=== PATIENT | female | born 1945 | race Caucasian/White ===

== ENCOUNTER → 2017-02-13 | Outpatient (CLI) | payer MEDICARE | LOC: M LAB 12:22 | PROVIDERS: ATTEND Internal Medicine Cardiovascular Disease | DX: R07.9 Chest pain, unspecified (principal) ==

== ENCOUNTER → 2018-10-30 | Outpatient (CLI) | payer MEDICARE ==
--- NOTE | 2018-11-04 14:02 | REP ---
KUB ABDOMEN AND PELVIS: KUB film of the abdomen and pelvis performed. A sitz marker capsule was ingested 5 days ago and followup radiographs are obtained today. There is a single marker seen in the sigmoid colon. Therefore, colonic transit time is grossly normal. I do not see evidence of significant small bowel or large bowel dilatation. Vascular calcifications are seen in the pelvis. There are degenerative changes of the spine, sacroiliac joints, pubic symphysis and hips. IMPRESSION: Single sitz marker present in the sigmoid colon 5 days after ingestion of the sitz marker capsule. Therefore, colonic transit time is grossly normal. Electronically Signed by Marco Lugo MD 11/05/2018 04:47 P
== END ==
LOC: M RAD 12:39
PROVIDERS: ATTEND Internal Medicine Gastroenterology
DX: K57.30 Diverticulosis of large intestine without perforation or abscess without bleeding (principal)

== ENCOUNTER → 2018-11-04 | Outpatient (REF) | payer MEDICARE ==
[2018-11-04 19:06] LABS: CLOSTRIDIUM DIFFICILE PCR NEGATIVE (NEGATIVE)
== END ==
LOC: M LAB REF 15:23
PROVIDERS: ATTEND Internal Medicine Gastroenterology
DX: K57.30 Diverticulosis of large intestine without perforation or abscess without bleeding (principal)

== ENCOUNTER → 2018-11-19 | Outpatient (CLI) | payer MEDICARE ==
[~2018-11-19] MED LIST: AMLO5TAB6 PO; ATOR1TAB21 PO; BAYE325T13 PO; CARV12.5 PO; DULO1CAP6 PO; GABA600T4 PO; JANU100T PO; METF850T4 PO; OMEG1CAP4 PO; OXYC1TAB23 PO; PANT40TA3 PO; PROAAER10 INH; TIZA4TAB4 PO
[2018-11-19 12:36] LABS: HEMOGLOBIN A1c 6.6 %
[2018-11-19 12:53] LABS: ALBUMIN 3.4 GM/DL (3.2-5.2); ALT/SGPT 15 U/L (12-78); BILIRUBIN,TOTAL 0.3 MG/DL (0.2-1.0); BLOOD UREA NITROGEN 16 MG/DL (7-18); CALCIUM LEVEL 8.9 MG/DL (8.8-10.2); CARBON DIOXIDE LEVEL 27 MEQ/L (21-32); CHLORIDE LEVEL 103 MEQ/L (98-107); CHOLESTEROL LEVEL 129 MG/DL (<200); CHOLESTEROL RISK RATIO 2.047 (<5); GLOMERULAR FILTRATION RATE > 60.0 (>39); GLUCOSE, FASTING 113 MG/DL (70-100); HDL CHOLESTEROL 63 MG/DL (>40); LDL CHOLESTEROL 41 MG/DL (<100); NON-HDL-C 66 MG/DL; POTASSIUM SERUM 5.2 MEQ/L (3.5-5.1); SODIUM LEVEL 140 MEQ/L (136-145); TOTAL PROTEIN 7.1 GM/DL (6.4-8.2); TRIGLYCERIDES LEVEL 125 MG/DL (<150)
== END ==
LOC: M LAB 11:34
PROVIDERS: ATTEND Internal Medicine
DX: E78.2 Mixed hyperlipidemia (principal); I10 Essential (primary) hypertension; E11.9 Type 2 diabetes mellitus without complications

== ENCOUNTER 2018-12-11 09:30 | Day surgery (SDC) | payer MEDICARE ==
[~2018-12-11] VITALS: Ht 149.9 cm; Wt 84.4 kg
[~2018-12-11 09:30] MED LIST changes: +NS 1,000 ML IV ONE
[2018-12-11] MEDS ORDERED: PROPOFOL 200 MG/20 ML VIAL As Ordered ONE ×2 (10:25→10:48)
[2018-12-11] MEDS ORDERED: LIDOCAINE 2% INJ 100 MG/5 ML SDV (FOR ANES.) As Ordered ONE (10:25)
--- NOTE | 2018-12-11 11:23 | ROOR ---
Patient Name: Zara Mtathews Procedure Date: 12/11/2018 10:38 AM Date of : 1945 Age: 73 Room: [facility] Gender: Female Note Status: Finalized Procedure: Colonoscopy Indications: Change in bowel habits, Diarrhea, Fecal incontinence Providers: López MATTHEWS MD Referring MD: MADELIN GAMA MD Requesting Provider: Medicines: Monitored Anesthesia Care Complications: No immediate complications. Procedure: Pre-Anesthesia Assessment: - The heart rate, respiratory rate, oxygen saturations, blood pressure, adequacy of pulmonary ventilation, and response to care were monitored throughout the procedure. The Colonoscope was introduced through the anus and advanced to the terminal ileum, with identification of the appendiceal orifice and IC valve. The colonoscopy was technically difficult and complex due to multiple diverticula in the colon. Successful completion of the procedure was aided by withdrawing the scope and replacing with the 'babyscope'. The patient tolerated the procedure well. Findings: The perianal and digital rectal examinations were normal. A benign-appearing, intrinsic severe stenosis measuring 10 cm (in length) was found in the recto-sigmoid colon, in the mid sigmoid colon and in the distal sigmoid colon and was traversed. Biopsies were taken with a cold forceps for histology. Multiple diverticula were found in the sigmoid colon. There was narrowing of the colon in association with the diverticular opening. Three sessile polyps were found in the ascending colon. The polyps were 5 to 8 mm in size. These polyps were removed with a cold snare. Resection and retrieval were complete. Internal hemorrhoids were found during retroflexion. The hemorrhoids were moderate. Impression: - Moderate to severe benign appearing segmental stenosis/lumenal narrowing in the recto-sigmoid colon, in the mid sigmoid colon and in the distal sigmoid colon. Likely related to myomatous hypertrophy/chronic diverticulitis. Biopsied. - Three 5 to 8 mm polyps in the ascending colon, removed with a cold snare. Resected and retrieved. - Internal hemorrhoids. Recommendation: - Miralax 17 gm daily in 8 oz water. - Use fiber, for example Citrucel, Fibercon, Konsyl or Metamucil. - Repeat colonoscopy in 3 - 5 years for surveillance. - Telephone endoscopist for pathology results in 2 weeks. - Surgical resection may be considered depending on results of a trial on fiber supplement PLUS miralax. López Matthews MD López MATTHEWS MD 12/11/2018 11:22:48 AM Electronically signed by López MATTHEWS MD Number of Addenda: 0 Note Initiated On: 12/11/2018 10:38 AM Estimated Blood Loss: Estimated blood loss: none.
[2018-12-11 11:40] VITALS: BP 144/76
== END 2018-12-11 11:57 | disposition home or self-care (01) ==
LOC: M OPP 09:30
PROVIDERS: ATTEND Internal Medicine Gastroenterology
DX: K56.699 Other intestinal obstruction unspecified as to partial versus complete obstruction (principal); K64.8 Other hemorrhoids; D12.2 Benign neoplasm of ascending colon; K57.30 Diverticulosis of large intestine without perforation or abscess without bleeding; R19.4 Change in bowel habit; R19.7 Diarrhea, unspecified; R15.9 Full incontinence of feces; M79.7 Fibromyalgia; Z79.82 Long term (current) use of aspirin; Z79.84 Long term (current) use of oral hypoglycemic drugs; Z79.891 Long term (current) use of opiate analgesic; Z79.899 Other long term (current) drug therapy; Z85.43 Personal history of malignant neoplasm of ovary; Z92.3 Personal history of irradiation; Z86.79 Personal history of other diseases of the circulatory system; Z95.5 Presence of coronary angioplasty implant and graft; Z86.73 Personal history of transient ischemic attack (TIA), and cerebral infarction without residual deficits

== ENCOUNTER → 2019-02-12 | Outpatient (CLI) | payer MEDICARE ==
[~2019-02-12] MED LIST changes: +LIQUID POLIBAR PLUS 105% w/v 1900ML BTL As Ordered ONE; -NS 1,000 ML IV ONE
--- NOTE | 2019-02-12 19:09 | REP ---
Examination Requested: Barium and Air contrast Reason For Exam: Obstruction, diverticulosis The procedure was performed by ANA MARIA Persaud, under the direct supervision of Dr. Lugo. The images were reviewed with Dr. Lugo. The field nurse film shows no organomegaly, or pathological masses. The intestinal gas pattern is unremarkable. Liquid barium and air were instilled into the colon and retrograde flow of the barium air mixture. The colon is normal in position and contour, with multiple redundancies. The sigmoid colon never became fully distended, and demonstrates fold thickening. There are multiple diverticula noted throughout the colon. There is a retained fecal material throughout the colon especially in the ascending colon. There is free flow of contrast to the cecum. There is reflux into the terminal ileum. The appendix is visualized. The colonic mucosal pattern is normal in course and caliber. There is no annular constricting lesion identified. Polyps cannot be excluded in the setting of diverticulosis, as well as limited visualization due to retained fecal material. Impression: 1. Sigmoid colon never fully distended, and demonstrates fold thickening. 2. Diverticulosis. 3. Limited for evaluation of polyps due to retained fecal material, diverticulosis, and redundancy of the colon. 0.8 minutes of fluoroscopy time was utilized for this procedure. Some fluoroscopic images are performed with last image hold technology. These images require no additional radiation. Reviewed by ANA MARIA Lopez 02/12/2019 04:39 P Electronically Signed by Marco Lugo MD 02/12/2019 05:12 P
== END ==
LOC: M RAD 09:18
PROVIDERS: ATTEND Surgery
DX: K56.699 Other intestinal obstruction unspecified as to partial versus complete obstruction (principal); K57.30 Diverticulosis of large intestine without perforation or abscess without bleeding

== ENCOUNTER → 2019-08-02 | Outpatient (CLI) | payer MEDICARE ==
[~2019-08-02] MED LIST changes: -LIQUID POLIBAR PLUS 105% w/v 1900ML BTL As Ordered ONE
== END ==
LOC: M LABSMTC 10:07
PROVIDERS: ATTEND Registered Nurse
DX: Z03.818 Encounter for observation for suspected exposure to other biological agents ruled out (principal); Z11.59 Encounter for screening for other viral diseases
CPT/HCPCS: C9803; U0003

== ENCOUNTER → 2019-11-25 | Outpatient (CLI) | payer MEDICARE ==
[~2019-11-25] MED LIST changes: +AMLO1TAB24 PO; -AMLO5TAB6 PO; +PANT40TA29 PO; -PANT40TA3 PO
== END ==
LOC: M LABSMTC 12:42
PROVIDERS: ATTEND Orthopaedic Surgery
DX: Z01.812 Encounter for preprocedural laboratory examination (principal); Z20.828 Contact with and (suspected) exposure to other viral communicable diseases

== ENCOUNTER → 2019-11-26 | Outpatient (CLI) | payer MEDICARE | LOC: M LABSMTC 12:02 | PROVIDERS: ATTEND Orthopaedic Surgery | DX: Z01.812 Encounter for preprocedural laboratory examination (principal); Z20.828 Contact with and (suspected) exposure to other viral communicable diseases ==

== ENCOUNTER → 2020-11-15 | Outpatient (REF) | payer MEDICARE ==
[~2020-11-15] MED LIST changes: -OMEG1CAP4 PO; +OMEG1CAP85 PO
[2020-11-15 19:53] LABS: PERCENT SATURATION 10.1 % (13.2-45.0)
[2020-11-15 20:03] LABS: FOLATE 12.8 NG/ML
== END ==
LOC: M LABDRWAD 18:21
PROVIDERS: ATTEND Physician Assistant
DX: D64.9 Anemia, unspecified (principal)

== ENCOUNTER → 2020-11-19 | Outpatient (CLI) | payer MEDICARE | LOC: M LABSMTC 09:41 | PROVIDERS: ATTEND Internal Medicine Cardiovascular Disease | DX: Z20.828 Contact with and (suspected) exposure to other viral communicable diseases (principal); Z11.59 Encounter for screening for other viral diseases ==

== ENCOUNTER 2020-12-21 13:13 | Emergency (ER) | payer MEDICARE ==
[~2020-12-21] VITALS: Ht 149.9 cm; Wt 81.6 kg
--- OUTSIDE RECORDS SUMMARY | 2020-12-21 13:19 | CCD | Continuity of Care Document ---
Author Organization Unknown Address Unknown Phone Unavailable Problems Active Problems Provider Date Benign hypertension Lb Ortiz M.D. Onset: 5 Diabetes mellitus Lb Ortiz M.D. Onset: 5 Coronary atherosclerosis Lb Ortiz M.D. Onset: 10/26 Pulmonary emphysema Lb Ortiz M.D. Onset: 5 Hyperlipidemia Lb Ortiz M.D. Onset: 5 Backache Lb Ortiz M.D. Onset: 5 Ischemic stroke bL Ortiz M.D. Onset: 5 Obstructive sleep apnea syndrome Lb Ortiz M.D. Ons et: 11/04/2014 Social History Type Date Description Comments Sex Unknown ETOH Use Denies alcohol use Tobacco Use Start: Unknown End: Unknown Patient is a former smoker 1 ppd for 45 years - Quit 2007 Recreational Drug Use Denies Drug Use Allergies, Adverse Reactions, Alerts Description No Known Drug Allergies Medications Active Medications SIG Qnty Indications Ordering Provide r Date Vitamin B12 1000mcg Tablets ER 1 by mouth every day 90tabs Lb Ortiz M.D. 10/28/19 21 Nystatin Powder apply three times a day as needed rash under skin folds 3units Lb Ortiz M.D. 10/21/2020 Albuterol Sulfate HFA 108(90Base) mcg/Act Aerosol Inhale Two Puffs By Mouth Four Times A Day as Needed 8.5units Lb Ortiz M.D. 12/23/2019 Gabapentin 600mg Tablets Take One Tablet By Mouth Three Times A Day 270tabs Lb Ortiz M. D. 08/15/2018 Blood Glucose Monitoring System W/Device Kit use once a day and as needed as directed e11.9 1unLb Pelletier M.D. 08/15/2018 Blood Glucose Test Strips use once a day and as needed (dx: e11.9) 100unLb Pelletier M.D . 08/15/2018 Lancets 31G Misc use to test glucose daily dx:e11.9 100unLb Pelletier M.D. 08/16/19 19 Atorvastatin Calcium 20mg Tablets Take One Tablet By Mouth Every Day 90taLb Romero M.D . 07/24/2018 Spiriva Respimat 2.5mcg/Act Aeroso l 2 puffs by mouth once a day 12gm Lb Ortiz M.D . 09/10/2017 Metformin HCL 850mg Tablets Take One Tablet By Mouth Three Times A Day, needs appt 90tabs Ut Lb mendoza M.D. 04/16/2017 Aspirin Ec 325mg Tablets DR 1 by mouth every day Lb Ortiz M.D. 11/05/19 15 Fenofibrate 160mg Tablets 1 by mouth every day 90tabs Lb Ortiz M.D. 11/05/19 15 Percocet 5-325mg Tablets one by mouth twice a day as needed [id number] 60tabs Lb Ortiz M.D. 11/04/2014 Duloxetine HCL 60mg Caps DR Part Take One Capsule By Mouth Every Day 90caps Lb Ortiz M. D. 11/04/2014 Amlodipine Besylate 5mg Tablets Take One Tablet By Mouth Every Day 90taLb Romero M.D . 11/04/2014 Carvedilol 12.5mg Tablets Take One Tablet By Mouth Twice A Day 180taLb Romero M.D. 11/2014 Immunizations CPT Code Status Date Vaccine Lot # 92262 Given 01/15/2020 Influenza Virus Vaccine, Quadrivalent, Slit Virus, Im Use 3Y & Up [id number] 96627 Given 03/24/2019 Pneumococcal Immunization S0 66425 50289 Given 11/28/2018 Influenza Virus Vaccine, Quadrivalent, Slit Virus, Im Use 3Y & Up [id number] 50420 Given 01/29/2018 Influenza Virus Vaccine, Quadrivalent, Slit Virus, Im Use 3Y & Up [id number] 67717 Given 09/13/2015 Prevnar 13 Pneum o. Conj Ped. Vaccine 13 Valent (PCV13) For [place] Use 46327 Given 06/14/2015 Zoster (Shingles) Vaccine 30690 Given 12/09/2014 Influenza Vaccin e (Fluzone) 3Yrs Of Age Or Older Medicare Plans [id number] Refused 12/27/2016 Influenza Virus Vaccine, Quadrivalent, Slit Virus, Im Use 3Y & Up Vital Signs Date Vital Result Comment 10/21/2020 10:19am BP Systolic 116 mmHg BP Diastolic 68 mmHg Body Temperature 97.6 F Heart Rate 58 /min Respiratory Rate 14 /min Height 59 inches 4'11" Weight 188.00 lb [place] Body Weight 100 lb BMI (Body Mass Index) 38.0 kg/m2 O2 % BldC Oximetry 96 % 01/15/2020 2:01pm BP Systolic 120 mmHg BP Diastolic 76 mmHg Body Temperature 97.7 F Heart Rate 58 /min Respiratory Rate 14 /min Height 59 inches 4'11" Weight 179.00 lb [place] Body Weight 100 lb BMI (Body Mass Index) 36.1 kg/m2 O2 % BldC Oximetry 97 % Results Test Acquired Date Facility Test Result H/L Range Note Coronavirus 2019 Nasopharygeal 11/19/2020 [facility] (Interface) [phone] Coronavirus 2019 Nasopharygeal ASSAY INFORMATIO <SEE N OTE> 1 CMP 10/21/2020 [facility] Glu 130 mg/dL High 70 - 110 2 BUN 21 mg/dL 8 - 23 Creat 1.0 mg/dL 0.5 - 1.0 BUN/Creatinine Ratio 20.2 CALC Na 136 mmol/L 136 - 145 K 5.0 mmol/L 3.5 - 5.1 CL 103.5 mmol/L 98.0 - 107.0 Co2 21.7 mmol/L Low 22.0 - 29.0 CA 9.0 mg/dL 8.6 - 10.2 TP 7.1 g/dL 6.6 - 8.7 Alb 4.2 g/dL 3.4 - 4.8 A/G Ratio 1.5 CALC Globulin 2.9 CALC Alp 88.0 U/L 35 - 129 Alt (SGPT) 7 U/L 0 - 41 Ast (Sgot) 10 U/L 0 - 40 Tbili 0.20 mg/dL 0.0 - 1.2 Osmolality-Calculated 277.4 CALC Anion Gap 16 mmol/L eGFR 64 # Calc 3 eGFR Non-Afr. [place] 55 # Calc 4 Lipid Panel 10/21/2020 [facility] Chol 124 mg/dL 0 - 200 Trig 85 mg/dL 40 - 200 HDL 67 mg/dL High 45 - 65 LDL_C 41 Calc Low 75 - 129 Cho/HDL Ratio 1.9 CALC CBC 10/21/2020 [facility] WBC 7.6 10E3/uL 4.1 - 10.9 RBC 3.75 10E6/uL Low 4.20 - 6.30 HGB 10.1 g/dL Low 12.0 - 18.0 HCT 32.4 % Low 37.0 - 51.0 MCV 86.4 fL 80.0 - 97.0 MCH 26.9 pg 26.0 - 32.0 MCHC 31.2 g/dL 31.0 - 36.0 PLT 240 10E3/uL 140 - 440 RDW-CV 15.9 % High 11.5 - 14.5 Lym% 20.1 % 10.0 - 58.5 Neut% 67.9 % 37.0 - 92.0 MXD% 12.0 % 0.1 - 24.0 Lym# 1.5 10E3/uL 0.6 - 4.1 Neut# 5.2 % 2.0 - 7.8 MXD# 0.9 10E3/uL 0.0 - 1.8 MPV 10.8 fL 9.0 - 13.0 Hemoglobin A1c 10/21/2020 [facility] [place] Hemoglobin A1c 7.0 % High 4.8-5.6 5 1 ASSAY INFORMATION: Real Time RT-PCR NOTE: The COVID-19 assay has been cleared by the U.S. Food and Drug Administration under the Emergency Use Authorization (EUA). [facility] and [facility] are designated as high complexity laboratories by the Clinical Laboratory Improvement Amendments of 1988(CLIA) and are qualified to perform this test. Not Detected 2 NORMAL RANGES Age WBC RBC HGB HCT MCV PLT Adult M 4.1-10.9 4.20-6.30 12.0-18.0 37.0-51.0 80-97 140-440 Adult F 4.1-10.9 4.04-5.48 12.0-18.0 37.0-51.0 80-97 140-440 0 -1 Yr 5.0-20.0 3.9-5.9 15-18 MV: 44 MV: 91 MV: 277 2-9 Yr. 6.0-17.0 3.8-5.4 11-13 MV: 37 MV: 78 MV: 300 10 Yrs. 5.0-13.0 3.8-5.4 12-15 MV: 39 MV: 80 MV: 250 NOTE: * FOR ADULT BLACK MALES AND FEMALES, NORMAL WBC IS 2.9-7.7 K/ML * FOR ADULT BLACK MALES AND FEMALES, NORMAL RBC,HGB, AND HCT IS 5% LESS SOURCE FOR DATA: [employer] 1800 OPERATION MANUAL( AUTOMATED BLOOD COUNTS AND DIFF.) APPENDIX B-3 CHRONIC KIDNEY DISEASE STAGING PER NKF: MALE GFR INTERPRETATION: 20-49 YRS: >60 mL/min Normal 50-59 YRS: >56 mL/min Normal 60-69 YRS: >49 mL/min Normal 70-79 YRS: >42 mL/min Normal 80 and above >35 mL/min Normal FEMALE GRF INTERPRETATION: 20-39 YRS: >60 mL/min Normal 40-49 YRS: >58 mL/min Normal 50-59 YRS: >51 mL/min Normal 60-69 YRS: >45 mL/min Normal 70-79 YRS: >39 mL/min Normal 80 and above >32 mL/min NormalCLASSIFICATION CHOLESTEROL FOR ADULTS CHILDREN/ADOLESCENTS* DESIRABLE: <200 MG/DL <170 MG/DL BORDER-LINE HIGH RISK: 200-239 MG/DL 170-199 MG/DL HIGH RISK: >240 MG/DL >200 MG/DL CLASS. FOR PRIMARY LDL CHOL PREVENTION: LDL CHOL-CHILD/ADOLESCENTS* DESIRABLE: <130 MG/DL <110 MG/DL BORDERLINE-HIGH RISK: 130-159 MG/DL 110-129 MG/DL HIGH RISK: >160 MG/DL >130 MG/DL *CHILDREN AND ADOLESCENTS REPRESENTS INDIVIDUALA AGED 2-19 YEARS EXCLUSIVE. 3 CKD-EPI 4 CKD-EPI 5 Prediabetes: 5.7 - 6.4 Diabetes: >6.4 Glycemic control for adults with diabetes: <7.0 Procedures Date Code Description Status 10/21/2020 46967 Office/Outpatient Established Mo d MDM 30-39 Min Completed Medical Devices Description No Information Available Encounters Type Date Location Provider Dx Diagnosis Office Visit 10/21/2020 10:20a [place] [facility] Lb Ortiz M. D. 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 10/21/2020 I25.10 Atherosclerotic heart disease of [place] coronary artery with Lb Ortiz M.D. 10/21/2020 E11.9 Type 2 diabetes mellitus without complications Lb Ortiz M.D. 10/21/2020 J44.9 Chronic obstructive pulmonary di sease, unspecified Lb Ortiz M.D. 10/21/2020 E78.2 Mixed hyperlipidemia Enrico Ortiz M.D. Plan of Treatment No Information Available Functional Status Description No Information Available Mental Status Description No Information Available Referrals Description No Information Available
--- OUTSIDE RECORDS SUMMARY | 2020-12-21 13:19 | CCD | Continuity of Care Document ---
Author Author Zara ORTIZ M.D. Organization Unknown Address [address] [place] [id number] Phone [phone] Problems Active Problems Provider Date Benign hypertension Lb Ortzi M.D. Onset: 5 Diabetes mellitus Lb Ortiz M.D. Onset: 5 Coronary atherosclerosis Lb Ortiz M.D. Onset: 10/26 Pulmonary emphysema Lb Ortiz M.D. Onset: 5 Hyperlipidemia Lb Ortiz M.D. Onset: 5 Backache Lb Ortiz M.D. Onset: 5 Ischemic stroke Lb Ortiz M.D. Onset: 5 Obstructive sleep apnea [...] SIG Qnty Indications Ordering Provide r Date Nystatin Powder apply three times a day as needed rash under skin folds 3units Lb Ortiz M.D. 10/21/2020 Albuterol Sulfate HFA 108(90Base) mcg/Act Aerosol Inhale Two Puffs By Mouth Four Times A Day as Needed 8.5units Lb Ortiz M.D. 12/23/2019 Gabapentin 600mg Tablets take one tablet by mouth three times a day 270tabs Lb Ortiz M. D. 08/15/2018 Blood Glucose Monitoring System W/Device Kit use once a day and as needed as directed e11.9 1units Lb Ortiz M.D. 08/15/2018 Blood Glucose Test Strips use once a day and as needed (dx: e11.9) 100undmitry Lb Ortiz M.D . 08/15/2018 Lancets 31G Misc use to test glucose daily dx:e11.9 100unLb Pelletier M.D. 08/16/19 19 Atorvastatin Calcium 20mg Tablets Take One Tablet By Mouth Every Day, needs appt 30tabs Lb Ortiz M.D. 07/24/2018 Spiriva Respimat 2.5mcg/Act Aeroso l 2 puffs by mouth once a day 12gm Lb Ortiz M.D . 09/10/2017 Metformin HCL 850mg Tablets Take One Tablet By Mouth Three Times A Day, needs appt 90tabs Lb Rivera M.D. 04/16/2017 Aspirin Ec 325mg Tablets DR 1 by mouth every day Lb Ortiz M.D. 11/05/19 15 Fenofibrate 160mg Tablets 1 by mouth every day 90taLb Romero M.D. 11/05/19 15 Percocet 5-325mg Tablets one by mouth twice a day as needed [id number] 60taLb Romero M.D. 11/04/2014 Duloxetine HCL 60mg Caps DR Part Take One Capsule By Mouth Every Day 90capLb Castillo M. D. 11/04/2014 Amlodipine Besylate 5mg Tablets Take One Tablet By Mouth Every Day 90taLb Romero M.D . 11/04/2014 Carvedilol 12.5mg Tablets Take One Tablet By Mouth Twice A Day 180taLb Romero M.D. 11/2014 Immunizations CPT Code Status Date Vaccine Lot # 27102 Given 01/15/2020 Influenza Virus Vaccine, Quadrivalent, Slit Virus, Im Use 3Y & Up [id number] 06153 Given 03/24/2019 Pneumococcal Immunization S0 73121 29936 Given 11/28/2018 Influenza Virus Vaccine, Quadrivalent, Slit Virus, Im Use 3Y & Up [id number] 40827 Given 01/29/2018 Influenza Virus Vaccine, Quadrivalent, Slit Virus, Im Use 3Y & Up [id number] 48038 Given 09/13/2015 Prevnar 13 Pneum o. Conj Ped. Vaccine 13 Valent (PCV13) For Im Use 18949 Given 06/14/2015 Zoster (Shingles) Vaccine 06571 Given 12/09/2014 Influenza Vaccin e (Fluzone) 3Yrs Of Age Or Older Medicare Plans [id number] Refused 12/27/2016 Influenza Virus Vaccine, Quadrivalent, Slit Virus, Im Use 3Y & Up Vital Signs Date Vital Result Comment 10/21/2020 10:19am BP Systolic 116 mmHg BP Diastolic 68 mmHg Body Temperature 97.6 F Heart Rate 58 /min Respiratory Rate 14 /min Height 59 inches 4'11" Weight 188.00 lb [place] Body Weight 100 lb BMI (Body Mass Index) 38.0 kg/m2 O2 % BldC Oximetry 96 % 01/15/2020 2:01pm BP Systolic 120 mmHg BP Diastolic 76 mmHg Body Temperature 97.7 F Heart Rate 58 /min Respiratory Rate 14 /min Height 59 inches 4'11" Weight 179.00 lb [place] Body Weight 100 lb BMI (Body Mass Index) 36.1 kg/m2 O2 % BldC Oximetry 97 % Results Test Acquired Date Facility Test Result H/L Range Note CMP 10/21/2020 [facility] Glu 130 mg/dL High 70 - 110 1 BUN 21 mg/dL 8 - 23 Creat [...] Gap 16 mmol/L eGFR 64 # Calc 2 eGFR Non-Afr. [place] 55 # Calc 3 Lipid Panel 10/21/2020 [facility] Chol 124 mg/dL [...] NE Hemoglobin A1c 7.0 % High 4.8-5.6 4 1 NORMAL RANGES Age WBC RBC HGB HCT [...] HCT IS 5% LESS SOURCE FOR DATA: [employer] 1800 OPERATION MANUAL( AUTOMATED BLOOD COUNTS AND [...] ADOLESCENTS REPRESENTS INDIVIDUALA AGED 2-19 YEARS EXCLUSIVE. 2 CKD-EPI 3 CKD-EPI 4 Prediabetes: 5.7 - 6.4 Diabetes: >6.4 Glycemic control for adults with diabetes: <7.0 Procedures Date Code Description Status 10/21/2020 56507 Office/Outpatient Established Mo d MDM 30-39 Min Completed Medical Devices Description No Information Available Encounters Type Date Location Provider Dx Diagnosis Office Visit 10/21/2020 10:20a [place] [facility] Lb Ortiz M. D. 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 10/21/2020 I25.10 Atherosclerotic heart disease of [place] coronary artery with Lb Ortiz M.D. 10/21/2020 [...]
--- OUTSIDE RECORDS SUMMARY | 2020-12-21 13:20 | CCD | Continuity of Care Document ---
Author Author Zara ORTIZ M.D. Organization Unknown Address [address] [place] [id number] Phone [phone] Problems Active Problems Provider Date Benign hypertension [...] as Needed 8.5units Lb Ortiz M.D. 12/23/2019 Ferrous Sulfate 325(65Fe) mg Table ts Take One Tablet By Mouth Twice A Day 60tabs Lb Ortiz M.D. 10/20/2019 Gabapentin 600mg Tablets take one tablet by [...] Three Times A Day, needs appt 90tabs Mi Lb mendoza M.D. 04/16/2017 Aspirin Ec 325mg Tablets DR 1 by mouth every day Lb Ortiz M.D. 11/05/19 15 Fenofibrate 160mg Tablets 1 by mouth every day 90taLb Romero M.D. 11/05/19 15 Percocet 5-325mg Tablets one by mouth twice a day as needed [id number] 60taLb Romero M.D. 11/04/2014 Duloxetine HCL 60mg Caps DR Part Take One Capsule By Mouth Every Day 90caps Lb Ortiz M. D. 11/04/2014 Amlodipine Besylate 5mg Tablets Take One Tablet By Mouth Every Day 90Lb Rosario M.D . 11/04/2014 Carvedilol 12.5mg Tablets Take One Tablet By Mouth Twice A Day 180taLb Romero M.D. 11/2014 Immunizations CPT Code Status Date Vaccine Lot # 93552 Given 01/15/2020 Influenza Virus Vaccine, Quadrivalent, Slit Virus, Im Use 3Y & Up [id number] 07190 Given 03/24/2019 Pneumococcal Immunization S0 16181 00345 Given 11/28/2018 Influenza Virus Vaccine, Quadrivalent, Slit Virus, Im Use 3Y & Up [id number] 90304 Given 01/29/2018 Influenza Virus Vaccine, Quadrivalent, Slit Virus, Im Use 3Y & Up [id number] 29130 Given 09/13/2015 Prevnar 13 Pneum o. Conj Ped. Vaccine 13 Valent (PCV13) For Im Use 84103 Given 06/14/2015 Zoster (Shingles) Vaccine 37994 Given 12/09/2014 Influenza Vaccin e (Fluzone) 3Yrs Of Age Or Older Medicare Plans [id number] 07865 Refused 12/27/2016 Influenza Virus Vaccine, Quadrivalent, Slit Virus, Im Use 3Y & Up Vital Signs Date Vital Result Comment 10/21/2020 10:19am BP Systolic 116 mmHg BP Diastolic 68 mmHg Body Temperature 97.6 F Heart Rate 58 /min Respiratory Rate 14 /min Height 59 inches 4'11" Weight 188.00 lb [place] Body Weight 100 lb BMI (Body Mass Index) 38.0 kg/m2 O2 % BldC Oximetry 96 % 01/15/2020 2:01pm BP Systolic 120 mmHg BP Diastolic 76 mmHg Body Temperature 97.7 F Heart Rate 58 /min Respiratory Rate 14 /min Height 59 inches 4'11" Weight 179.00 lb [place] Body Weight 100 lb BMI (Body Mass Index) 36.1 kg/m2 O2 % BldC Oximetry 97 % Results Description No Information Available Procedures Date Code Description Status 10/21/2020 82918 Office/Outpatient Established Mo d MDM 30-39 Min Completed Medical Devices Description No Information Available Encounters Type Date Location Provider Dx Diagnosis Office Visit 10/21/2020 10:20a [place] [facility] Lb Ortiz M. D. 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 10/21/2020 I25.10 Atherosclerotic heart disease of [place] coronary artery with Lb Ortiz M.D. 10/21/2020 [...]
--- OUTSIDE RECORDS SUMMARY | 2020-12-21 13:20 | CCD ---
Author Author [facility] Organization [facility] Address Unknown Phone Unavailable Care Team Providers Care Manager Photography Name Role Phone Reza GAMA MD Unavailable Unavailable Reza GAMA MD Unavailable Unavailable Reza GAMA MD Unavailable Unavailable Reza GAMA MD Unavailable Unavailable Reza GAMA MD Unavailable Unavailable Reza GAMA MD Unavailable Unavailable Reza GAMA MD Unavailable Unavailable Reza GAMA MD Unavailable Unavailable Reza GAMA MD Unavailable Unavailable Reza GAMA MD Unavailable Unavailable Reza GAMA MD Unavailable Unavailable Reza GAMA MD Unavailable Unavailable Reza GAMA MD Unavailable Unavailable Reza GAMA MD Unavailable Unavailable Reza GAMA MD Unavailable Unavailable Reza GAMA MD Unavailable Unavailable Reza GAMA MD Unavailable Unavailable Reza GAMA MD Unavailable Unavailable Reza GAMA MD Unavailable Unavailable Reza GAMA MD Unavailable Unavailable Reza GAMA MD Unavailable Unavailable Reza GAMA MD Unavailable Unavailable Reza GAMA MD Unavailable Unavailable Reza GAMA MD Unavailable Unavailable Reza GAMA MD Unavailable Unavailable Reza GAMA MD Unavailable Unavailable Reza GAMA MD Unavailable Unavailable Reza GAMA MD Unavailable Unavailable Reza GAMA MD Unavailable Unavailable Reza GMAA MD Unavailable Unavailable Reza GAMA MD Unavailable Unavailable Reza GAMA MD Unavailable Unavailable Reza GAMA MD Unavailable Unavailable Reza GAMA MD Unavailable Unavailable Reza GAMA MD Unavailable Unavailable Reza GAMA MD Unavailable Unavailable Reza GAMA MD Unavailable Unavailable Reza GAMA MD Unavailable Unavailable Reza GAMA MD Unavailable Unavailable Reza AGMA MD Unavailable Unavailable Reza GAMA MD Unavailable Unavailable Reza GAMA MD Unavailable Unavailable Reza GAMA MD Unavailable Unavailable Reza GAMA MD Unavailable Unavailable NATAN, H MADELIN MD Unavailable Unavailable NATAN, H MADELIN MD Unavailable Unavailable NATAN, H MADELIN MD Unavailable Unavailable NATAN, H MADELIN MD Unavailable Unavailable NATAN, H MADELIN MD Unavailable Unavailable NATAN, H MADELIN MD Unavailable Unavailable NATAN, H MADELIN MD Unavailable Unavailable NATAN, H MADELIN MD Unavailable Unavailable NATAN, H MADELIN MD Unavailable Unavailable NATAN, H MADELIN MD Unavailable Unavailable NATAN, H MADELIN MD Unavailable Unavailable NATAN, H MADELIN MD Unavailable Unavailable NATAN, H MADELIN MD Unavailable Unavailable NATAN, H MADELIN MD Unavailable Unavailable NATAN, H MADELIN MD Unavailable Unavailable NATAN, H MADELIN MD Unavailable Unavailable NATAN, H MADELIN MD Unavailable Unavailable NATAN, H MADELIN MD Unavailable Unavailable NATAN, H MADELIN MD Unavailable Unavailable NATAN, H MADELIN MD Unavailable Unavailable NATAN, H MADELIN MD Unavailable Unavailable NATAN, H MADELIN MD Unavailable Unavailable NATAN, H MADELIN MD Unavailable Unavailable NATAN, H MADELIN MD Unavailable Unavailable NATAN, H MADELIN MD Unavailable Unavailable NATAN, H MADELIN MD Unavailable Unavailable NATAN, H MADELIN MD Unavailable Unavailable NATAN, H MADELIN MD Unavailable Unavailable NATAN, H MADELIN MD Unavailable Unavailable NATAN, H MADELIN MD Unavailable Unavailable NATAN, H MADELIN MD Unavailable Unavailable NATAN, H MADELIN MD Unavailable Unavailable El-Khally, A Ziad MD Unavailable Unavailable El-Khally, A Ziad MD Unavailable Unavailable El-Khally, A Ziad MD Unavailable Unavailable El-Khally, A Ziad MD Unavailable Unavailable El-Khally, A Ziad MD Unavailable Unavailable El-Khally, A Ziad MD Unavailable Unavailable El-Khally, A Ziad MD Unavailable Unavailable El-Khally, A Ziad MD Unavailable Unavailable El-Khally, A Ziad MD Unavailable Unavailable El-Khally, A Ziad MD Unavailable Unavailable El-Khally, A Ziad MD Unavailable Unavailable El-Khally, A Ziad MD Unavailable Unavailable El-Khally, A Ziad MD Unavailable Unavailable El-Khally, A Ziad MD Unavailable Unavailable El-Khally, A Ziad MD Unavailable Unavailable El-Khally, A Ziad MD Unavailable Unavailable El-Khally, A Ziad MD Unavailable Unavailable El-Khally, A Ziad MD Unavailable Unavailable El-Khally, A Ziad MD Unavailable Unavailable El-Khally, A Ziad MD Unavailable Unavailable El-Khally, A Ziad MD Unavailable Unavailable El-Khally, A Ziad MD Unavailable Unavailable El-Khally, A Ziad MD Unavailable Unavailable El-Khally, A Ziad MD Unavailable Unavailable El-Khally, A Ziad MD Unavailable Unavailable El-Khally, A Ziad MD Unavailable Unavailable El-Khally, A Ziad MD Unavailable Unavailable El-Khally, A Ziad MD Unavailable Unavailable El-Khally, A Ziad MD Unavailable Unavailable El-Khally, A Ziad MD Unavailable Unavailable El-Khally, A Ziad MD Unavailable Unavailable El-Khally, A Ziad MD Unavailable Unavailable El-Khally, A Ziad MD Unavailable Unavailable El-Khally, A Ziad MD Unavailable Unavailable El-Khally, A Ziad MD Unavailable Unavailable El-Khally, A Ziad MD Unavailable Unavailable El-Khally, A Ziad MD Unavailable Unavailable El-Khally, A Ziad MD Unavailable Unavailable El-Khally, A Ziad MD Unavailable Unavailable El-Khally, A Ziad MD Unavailable Unavailable El-Khally, A Ziad MD Unavailable Unavailable El-Khally, A Ziad MD Unavailable Unavailable El-Khally, A Ziad MD Unavailable Unavailable Noyola, L Chante PA Unavailable Unavailable Noyola, L Chante PA Unavailable Unavailable Noyola, L Chante PA Unavailable Unavailable Noyola, L Chante PA Unavailable Unavailable Noyola, L Chante PA Unavailable Unavailable Noyola, L Chante PA Unavailable Unavailable Noyola, L Chante PA Unavailable Unavailable Noyola, L Chante PA Unavailable Unavailable Noyola, L Chante PA Unavailable Unavailable Noyola, L Chante PA Unavailable Unavailable Noyola, L Chante PA Unavailable Unavailable Noyola, L Chante PA Unavailable Unavailable Noyola, L Chante PA Unavailable Unavailable Noyola, L Chante PA Unavailable Unavailable Noyola, L Chante PA Unavailable Unavailable Noyola, L Chante PA Unavailable Unavailable Noyola, L Chante PA Unavailable Unavailable Noyola, L Chante PA Unavailable Unavailable Noyola, L Chante PA Unavailable Unavailable Noyola, L Chante PA Unavailable Unavailable Noyola, L Chante PA Unavailable Unavailable Noyola, L Chante PA Unavailable Unavailable Noyola, L Chante PA Unavailable Unavailable Noyola, L Chante PA Unavailable Unavailable Noyola, L Chante PA Unavailable Unavailable Noyola, L Chante PA Unavailable Unavailable Noyola, L Chante PA Unavailable Unavailable Noyola, L Chante PA Unavailable Unavailable Noyola, L Chante PA Unavailable Unavailable Noyola, L Chante PA Unavailable Unavailable Noyola, L Chante PA Unavailable Unavailable Noyloa, L Chante PA Unavailable Unavailable Noyola, L Chante PA Unavailable Unavailable Noyola, L Chante PA Unavailable Unavailable Noyola, L Chante PA Unavailable Unavailable Noyola, L Chante PA Unavailable Unavailable Noyola, L Chante PA Unavailable Unavailable Noyola, L Chante PA Unavailable Unavailable Noyola, L Chante PA Unavailable Unavailable Castro, V SAM PA-C Unavailable Unavailable Jonathan, V SAM PA-C Unavailable Unavailable Castro, V SAM PA-C Unavailable Unavailable Castro, V SAM PA-C Unavailable Unavailable Castro, V SAM PA-C Unavailable Unavailable Jonathan, V SAM PA-C Unavailable Unavailable Jonathan, V SAM PA-C Unavailable Unavailable Castro, V SAM PA-C Unavailable Unavailable Jonathan, V SAM PA-C Unavailable Unavailable Jonathan, V SAM PA-C Unavailable Unavailable Castro, V SAM PA-C Unavailable Unavailable Castro, V SAM PA-C Unavailable Unavailable Castro, V SAM PA-C Unavailable Unavailable Castro, V SAM PA-C Unavailable Unavailable DONNELL, A GAUTAM DO Unavailable Unavailable DONNELL, A GAUTAM DO Unavailable Unavailable DONNELL, A GAUTAM DO Unavailable Unavailable DONNELL, A GAUTAM DO Unavailable Unavailable DONNELL, A GAUTAM DO Unavailable Unavailable DONNELL, A GAUTAM DO Unavailable Unavailable DONNELL, A GAUTAM DO Unavailable Unavailable DONNELL, A GAUTAM DO Unavailable Unavailable DONNELL, A GAUTAM DO Unavailable Unavailable DONNELL, A GAUTAM DO Unavailable Unavailable DONNELL, A GAUTAM DO Unavailable Unavailable DONNELL, A GAUTAM DO Unavailable Unavailable DONNELL, A GAUTAM DO Unavailable Unavailable DONNELL, A GAUTAM DO Unavailable Unavailable DONNELL, A GAUTAM DO Unavailable Unavailable DONNELL, A GAUTAM DO Unavailable Unavailable DONNELL, A GAUTAM DO Unavailable Unavailable DONNELL, A GAUTAM DO Unavailable Unavailable DONNELL, A GAUTAM DO Unavailable Unavailable DONNELL, A GAUTAM DO Unavailable Unavailable DONNELL, A GAUTAM DO Unavailable Unavailable DONNELL, A GAUTAM DO Unavailable Unavailable Yamilex Orozco MD Unavailable Unavailable Yamilex Orozco MD Unavailable Unavailable Yamilex Orozco MD Unavailable Unavailable Yamilex Orozco MD Unavailable Unavailable Yamilex Orozco MD Unavailable Unavailable Yamilex Orozco MD Unavailable Unavailable Yamilex Orozco MD Unavailable Unavailable Yamilex Orozco MD Unavailable Unavailable Yamilex Orozco MD Unavailable Unavailable Yamilex Orozco MD Unavailable Unavailable Yamilex Orozco MD Unavailable Unavailable Yamilex Orozco MD Unavailable Unavailable Yamilex Orozco MD Unavailable Unavailable Yamilex Orozco MD Unavailable Unavailable Yamilex Orozco MD Unavailable Unavailable Yamilex Orozco MD Unavailable Unavailable Yamilex Orozco MD Unavailable Unavailable SleYamilex quiroga MD Unavailable Unavailable Yamilex Orozco MD Unavailable Unavailable Yamilex Orozco MD Unavailable Unavailable Yamilex Orozco MD Unavailable Unavailable Yamilex Orozco MD Unavailable Unavailable Yamilex Orozco MD Unavailable Unavailable Yamilex Orozco MD Unavailable Unavailable Yamilex Orozco MD Unavailable Unavailable Yamilex Orozco MD Unavailable Unavailable Yamilex Orozco MD Unavailable Unavailable Yamilex Orozco MD Unavailable Unavailable Yamilex Orozco MD Unavailable Unavailable Yamilex Orozco MD Unavailable Unavailable Yamilex Orozco MD Unavailable Unavailable Yamilex Orozco MD Unavailable Unavailable Yamilex Orozco MD Unavailable Unavailable Yamilex Orozco MD Unavailable Unavailable Yamilex Orozco MD Unavailable Unavailable Yamilex Orozco MD Unavailable Unavailable Yamilex Orozco MD Unavailable Unavailable Yamilex Orozco MD Unavailable Unavailable Yamilex Orozco MD Unavailable Unavailable Yamilex Orozco MD Unavailable Unavailable Yamilex Orozco MD Unavailable Unavailable Yamilex Orozco MD Unavailable Unavailable Yamilex Orozco MD Unavailable Unavailable Yamilex Orozco MD Unavailable Unavailable Yamilex Orozco MD Unavailable Unavailable Yamilex Orozco MD Unavailable Unavailable Yamilex Orozco MD Unavailable Unavailable Yamilex Orozco MD Unavailable Unavailable Yamilex Orozco MD Unavailable Unavailable Yamilex Orozco MD Unavailable Unavailable Yamilex Orozco MD Unavailable Unavailable Yamilex Orozco MD Unavailable Unavailable Yamilex Orozco MD Unavailable Unavailable Yamilex Orozco MD Unavailable Unavailable Yamilex Orozco MD Unavailable Unavailable Yamilex Orozco MD Unavailable Unavailable Yamilex Orozco MD Unavailable Unavailable Yamilex Orozco MD Unavailable Unavailable Re-disclosure Warning The records that you are about to access may contain information from federally-assisted alcohol or drug abuse programs. If such information is present, then the following federally mandated warning applies: This information has been disclosed to you from records protected by federal confidentiality rules (42 CFR part 2). The federal rules prohibit you from making any further disclosure of this information unless further disclosure is expressly permitted by the written consent of the person to whom it pertains or as otherwise permitted by 42 CFR part 2. A general authorization for the release of medical or other information is NOT sufficient for this purpose. The Federal rules restrict any use of the information to criminally investigate or prosecute any alcohol or drug abuse patient.The records that you are about to access may contain highly sensitive health information, the redisclosure of which is protected by Article 27-F of the [facility] Public Health law. If you continue you may have access to information: Regarding HIV / AIDS; Provided by facilities licensed or operated by the [facility] Office of Mental Health; or Provided by the [facility] Office for People With Developmental Disabilities. If such information is present, then the following [facility] mandated warning applies: This information has been disclosed to you from confidential records which are protected by state law. State law prohibits you from making any further disclosure of this information without the specific written consent of the person to whom it pertains, or as otherwise permitted by law. Any unauthorized further disclosure in violation of state law may result in a fine or prison sentence or both. A general authorization for the release of medical or other information is NOT sufficient authorization for further disc losure. Allergies and Adverse Reactions Type Description Substance Reaction Status Data Source(s ) Allergy to substance No Known Allergies No known allergies (situation ) [place] (Aftab Dolan MD [facility]) Family History Family Member Name Family Member Gender Family Member Status Date o f Status Description Data Source(s) Unknown Female Problem [facility] ([facility]) Unknown Unknown Problem [facility] ([facility] Unknown Unknown Problem [facility] ([facility]) Unknown Unknown Problem [facility] ([facility] Encounters Encounter Providers Location Date Indications Data Source(s ) Outpatient Attender: Chante LOGAN-SJP.NISH 12:00:00 AM EDT [facility] Outpatient Attender: SAM MOYA.NISH-NITA.NISH 12/2020 08:53:52 AM EDT - 12/05/2020 09:49:08 AM EDT [facility] Outpatient Attender: Cassi Diaz MDA dmitter: Cassi Diaz MDReferrer: Yamilex Orozco MD [email or web address] 11/23/2020 06:00:00 AM EDT - 11/23/2020 11:10:00 AM EDT [facility] Patient discharged. Outpatient Attender: Chante DELUNANISH-SJP.NISH 12:00:00 AM EDT - 11/18/2020 04:15:39 PM EDT [facility] Outpatient Referrer: Chante DELUNANISH-SJP.NISH 01:18:47 PM EDT [facility] Outpatient Referrer: Chante DELUNANISH-SJP.NISH 09/2020 08:22:00 AM EDT [facility] Outpatient Attender: MADELIN GAMA MD [facility] 10:20:00 AM EDT [facility] ([facility] Outpatient Attender: Chante DELUNANISH-SJP.NISH 12:00:00 AM EDT - 09/08/2020 02:19:38 PM EDT [facility] <td ID="encounterTypeDescriptionID0">1 Y ear Follow-Up</td><td>Gautam Oscar DO</td><td>Aftab Monroy MD [facility]</td><td>02/02/2020</td><td>12:19PM</td><td>12:58PM</td><td><content ID="encounterDiagnosisID0-0">Dry Eye Syndrome</content>, <content ID="encounterDiagnosisID0-1">Pseudophakia</content>, <content ID="encounterDiagnosisID0-2">Taking Medication For Diabetes Long-term Use of Oral Hypoglycemics</content>, <content ID="encounterDiagnosisID0-3">Vitreous Disorders Degeneration</content>, <content ID="encounterDiagnosisID0-4">Diabetes Mellitus Type 2 Without Complication</content>, <content ID="encounterDiagnosisID0-5">Astigmatism - Regular Bilateral</content></td>Outpatient Attender: GAUTAM Fraga MD [facility] 02/02/2020 12:19:00 PM EST - 02/02/2020 12:58:00 PM ES T Taking Medication For Diabetes Long-term Use of Oral HypoglycemicsAstigmatism - Regular BilateralDiabetes Mellitus Type 2 Without ComplicationVitreous Disorders DegenerationPseudophakiaDry Eye Syndrome ANUM (Aftab Dolan MD [facility]) Taking Medication For Diabetes Long-term Use of Oral Hypoglycemics Astigmatism - Regular Bilateral Diabetes Mellitus Type 2 Without Complic ation Vitreous Disorders Degeneration Pseudophakia Dry Eye Syndrome Outpatient Attender: MADELIN GAMA MD [facility] 12:15:00 PM EST [facility] ([facility] Immunizations Vaccine Date Status Description Data Source(s) COVID-19 VACCINE Moderna 05/25/2020 12:00:00 AM EDT completed [facility] Vaccine Series Complete: YESThis Data wa s Submitted to [facility] Via [employer]. COVID-19 VACCINE Moderna 04/27/2020 12:00:00 AM EST completed [facility] Vaccine Series Complete: NOThis Data was Submitted to [facility] Via [employer]. New in 2012. IIV4 01/15/2020 01:01:00 PM EST completed [facility] ([facility] Medications Medication Brand Name Start Date Product Form Dose Route Admi nistrative Instructions Pharmacy Instructions Status Indications Reaction Description Data Source(s) Metformin hydrochloride 850 MG Oral Tablet metFORMIN ( GLUCOPHAGE) 850 MG tablet metFORMIN (GLUCOPHAGE) 850 MG tablet 11/25/2020 12:00:00 AM EDT 850 m g Oral active Take 1 tablet (8 50 mg total) by mouth 2 (two) times a day with meals [facility] normal saline flush 0.9 % injection 3 mL 29087-988-08 11/23/2020 09:00:00 AM EDT 3 mL Intravenous active 3 mL , Intravenous, PROTOCOL, First dose on Sat11/23/20 at 0900, Pre-op
flush per protocol, D/C Main IV fluid if appropriate
[facility] Medication administered onsite iopamidol (ISOVUE-370) 76 % [id number] 11/23/2020 08:13:56 AM EDT active As needed, Starting on Sat11/23/20 at 0813, Intra-Proc edure [facility] Medication administered onsite 1 ML heparin sodium, porcine 1000 UNT/ML Injection hep jorge (porcine) injection heparin (porcine) injection 11/23/2020 08:00:51 AM EDT active As needed, Starting on Sat11/23/20 at 0800, Intra-Procedure [facility] Medication administered onsite 4 ML Verapamil hydrochloride 2.5 MG/ML Injection verap karthik (ISOPTIN) injection verapamil (ISOPTIN) injection 11/23/2020 08:00:44 AM EDT active As needed, Starting on Sat11/23/20 at 0800, Intra-Procedure [facility] Medication administered onsite lidocaine 1 % injection 2958-6098-13 11/23/2020 07:57:38 AM EDT active As needed, Starting on Sat at 0757, Intra-Procedure [facility] Medication administered onsite fentaNYL Citrate (PF) (SUBLIMAZE) injection [id number] 11/23/2020 07:56:18 AM EDT active As neede d, Starting on Sat11/23/20 at 0756, Intra-Procedure [facility] Medication administered onsite 2 ML Midazolam 1 MG/ML Injection midazolam (VERSED) in jection midazolam (VERSED) injection 11/23/2020 07:56:10 AM EDT active As needed, Starting on Sat11/23/20 at 0756, Intra-Procedure [facility] Medication administered onsite normal saline flush 0.9 % injection 3 mL [id number] 11/23/2020 07:00:00 AM EDT 3 mL Intravenous active 3 mL , Intravenous, Every 8 hours (scheduled), First dose on Sat11/23/20 at 0700, Pre-op
Rapid push positive pressure flushing shall be performed with a 10 cc normal saline syringe to check the PATENCY of a PIV site prior to any infusion therapy initiation unless resistance is met.
[facility] Medication administered onsite normal saline flush 0.9 % injection 3 mL [id number] 11/23/2020 07:00:00 AM EDT 3 mL Intravenous active 3 mL , Intravenous, Every 8 hours (scheduled), First dose on Sat11/23/20 at 0700, Pre-op
Rapid push positive pressure flushing shall be performed with a 10 cc normal saline syringe to check the PATENCY of a PIV site prior to any infusion therapy initiation unless resistance is met.
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
Start two hours prior to scheduled start time
[facility] Medication administered onsite Aspirin 325 MG Oral Tablet aspirin tablet 325 mg aspirin tab let 325 mg 11/23/2020 07:00:00 AM EDT 325 mg Oral completed 325 mg, Oral, Once, On Sat11/23/20 at 0700, For 1 dose, Pre-op
Give if scheduled for cardiac or peripheral angioplasty/stent or carotid stenting. Administer AM dose prior to procedure if NOT taken at home. Max of 1 dose per day.
[facility] Medication administered onsite Aspirin 81 MG Delayed Release Oral Tablet aspirin EC 8 1 MG EC tablet aspirin EC 81 MG EC tablet 11/23/2020 12:00:00 AM EDT 81 mg Oral ac tive Take 1 tablet (81 mg total) by mouth daily [facility] ferrous sulfate 325 MG Oral Tablet ferrous sulfate 325 (65 FE) MG tablet ferrous sulfate 325 (65 FE) MG tablet 11/18/2020 12:00:00 AM EDT 325 mg Ora l active Iron deficiency anemia, unspecified iron deficiency anemia t ype Take 1 tablet (325 mg total) by mouth every other day [facility] Iron deficiency anemia, unspecified iron deficiency anemia type Nystatin 100 UNT/MG Topical Powder nystatin (MYCOSTATI N) powder nystatin (MYCOSTATIN) powder 11/13/2020 12:00:00 AM EDT act nancy [facility] clopidogrel 75 MG Oral Tablet clopidogrel (PLAVIX) 75 MG tablet clopidogrel (PLAVIX) 75 MG tablet 11/08/2020 12:00:00 AM EDT aborted TAKE ALL 4 TABLETS BY MOUTH THE NIGHT BEFORE CARDIAC CATHETERIZATION FOR 1 DOSE [facility] 75 mg 11/08/2020 12:00:00 AM EDT tablet 4 TAKE ALL 4 TABLETS BY MOUTH THE NIGHT BEFORE CARDIAC CATHETERIZATION FOR 1 DOSE TAKE ALL 4 TABLETS BY MOUTH THE NIGHT BEFORE CARDIAC CATHETERIZATION FOR 1 DOSE SOLD: 11/09/2020 [facility] atorvastatin 20 MG Oral Tablet ATORVASTATIN CALCIUM 11/03/2020 1 2:00:00 AM EDT tablet 90 TAKE ONE TABLET BY MOUTH EVERY D AY TAKE ONE TABLET BY MOUTH EVERY DAY SOLD: 11/09/2020 [facility] pantoprazole 40 MG Delayed Release Oral Tablet PANTOPRAZOLE SODIUM 11/01/2020 12:00:00 AM EDT tablet,delayed release (DR/EC) 90 T [place] ONE TABLET BY MOUTH EVERY DAY TAKE ONE TABLET BY MOUTH EVERY DAY SOLD: 11/09/2020 [facility] 600 mg 10/31/2020 12:00:00 AM EDT tablet 270 TAKE ONE TABLET BY MOUTH THREE TIMES A DAY TAKE ONE TABLET BY MOUTH THREE TIMES A DAY SOLD: 11/09/2020 [facility] Vitamin B 12 1 MG Extended Release Oral Tablet Vitamin B12 10/27/2020 12:00:00 AM EDT ORAL active [facility] ([facility] 5-325 mg 10/21/2020 12:00:00 AM EDT tablet 14 TAKE ONE TABLET BY MOUTH TWICE A DAY NEEDED MAXIMUM DAILY DOSE = 2 TAKE ONE TABLET BY MOUTH TWICE A DAY NEEDED MAXIMUM DAILY DOSE = 2 SOLD: 10/27/2020 [facility] Nystatin 10/21/2020 12:00:00 AM EDT active [facility] ([facility] Nystatin 100 UNT/MG Topical Powder 100,000 unit/gram NYSTATI N 10/21/2020 12:00:00 AM EDT powder 45 APPLY THREE TIME S A DAY NEEDED FOR RASH UNDER SKIN FOLDS APPLY THREE TIMES A DAY NEEDED FOR RASH UNDER SKIN FOLDS SOLD: 10/27/2020 [facility] Metformin hydrochloride 850 MG Oral Tablet METFORMIN HCL 09/19/2020 12:00:00 AM EDT tablet 90 TAKE ONE TABLET BY MOUTH THR EE TIMES A DAY TAKE ONE TABLET BY MOUTH THREE TIMES A DAY SOLD: 10/11/2020 [facility] pantoprazole 40 MG Delayed Release Oral Tablet pantoprazole (PROTONIX) 40 MG tablet pantoprazole (PROTONIX) 40 MG tablet 09/15/2020 12:00:00 AM EDT active TAKE ONE TABLET BY MOUTH JENNIFER ANTON [facility] atorvastatin 20 MG Oral Tablet ATORVASTATIN CALCIUM 07/30/2020 1 2:00:00 AM EDT tablet 90 TAKE ONE TABLET BY MOUTH EVERY D AY TAKE ONE TABLET BY MOUTH EVERY DAY SOLD: 08/03/2020 [facility] [place]-3 Acid Ethyl Esters (ALF) 1000 MG Oral Capsule omega-3 acid ethyl esters (LOVAZA) 1 g capsule omega-3 acid ethyl esters (LOVAZA) 1 g capsule 021 12:00:00 AM EDT active [facility] carvedilol 12.5 MG Oral Tablet CARVEDILOL 05/12/2020 12:00:00 AM EDT tablet 180 TAKE ONE TABLET BY MOUTH TWICE A DAY TAKE ONE TABLET BY MOUT H TWICE A DAY SOLD: 06/05/2020 [facility] 5 mg 05/12/2020 12:00:00 AM EDT tablet 90 TAKE ONE TABLET BY MOUTH EVERY DAY TAKE ONE TABLET BY MOUTH EVERY DAY SOLD: 06/05/2020 [facility] carvedilol 12.5 MG Oral Tablet CARVEDILOL 05/12/2020 12:00:00 AM EDT tablet 180 TAKE ONE TABLET BY MOUTH TWICE A DAY TAKE ONE TABLET BY MOUT H TWICE A DAY SOLD: 10/11/2020 [facility] atorvastatin 20 MG Oral Tablet ATORVASTATIN CALCIUM 05/04/2020 1 2:00:00 AM EST tablet 90 TAKE ONE TABLET BY MOUTH EVERY D AY TAKE ONE TABLET BY MOUTH EVERY DAY SOLD: 05/10/2020 [facility] 60 mg 05/03/2020 12:00:00 AM EST capsule,delayed release (DR/EC) 90 TAKE ONE CAPSULE BY MOUTH EVERY DAY TAKE ONE CAPSULE BY MOUTH EVERY DAY SOLD: 11/09/2020 [facility] 60 mg 05/03/2020 12:00:00 AM EST capsule,delayed release (DR/EC) 90 TAKE ONE CAPSULE BY MOUTH EVERY DAY TAKE ONE CAPSULE BY MOUTH EVERY DAY SOLD: 05/10/2020 [facility] 60 mg 05/03/2020 12:00:00 AM EST capsule,delayed release (DR/EC) 90 TAKE ONE CAPSULE BY MOUTH EVERY DAY TAKE ONE CAPSULE BY MOUTH EVERY DAY SOLD: 08/03/2020 [facility] 600 mg 04/25/2020 12:00:00 AM EST tablet 270 TAKE ONE TABLET BY MOUTH THREE TIMES A DAY TAKE ONE TABLET BY MOUTH THREE TIMES A DAY SOLD: 05/10/2020 [facility] 600 mg 04/25/2020 12:00:00 AM EST tablet 270 TAKE ONE TABLET BY MOUTH THREE TIMES A DAY TAKE ONE TABLET BY MOUTH THREE TIMES A DAY SOLD: 08/03/2020 [facility] pantoprazole 40 MG Delayed Release Oral Tablet PANTOPRAZOLE SODIUM 03/09/2020 12:00:00 AM EST tablet,delayed release (DR/EC) 90 T [place] ONE TABLET BY MOUTH EVERY DAY TAKE ONE TABLET BY MOUTH EVERY DAY SOLD: 08/03/2020 [facility] pantoprazole 40 MG Delayed Release Oral Tablet PANTOPRAZOLE SODIUM 03/09/2020 12:00:00 AM EST tablet,delayed release (DR/EC) 90 T [place] ONE TABLET BY MOUTH EVERY DAY TAKE ONE TABLET BY MOUTH EVERY DAY SOLD: 03/28/2020 [facility] pantoprazole 40 MG Delayed Release Oral Tablet pantoprazole (PROTONIX) 40 MG tablet pantoprazole (PROTONIX) 40 MG tablet 03/08/2020 12:00:00 AM EST active TAKE ONE TABLET BY MOUTH JENNIFER AN[facility] Metformin hydrochloride 850 MG Oral Tablet METFORMIN HCL 02/10/2020 12:00:00 AM EST tablet 270 TAKE ONE TABLET BY MOUTH THR EE TIMES A DAY TAKE ONE TABLET BY MOUTH THREE TIMES A DAY SOLD: 02/15/2020 [facility] Metformin hydrochloride 850 MG Oral Tablet METFORMIN HCL 02/10/2020 12:00:00 AM EST tablet 270 TAKE ONE TABLET BY MOUTH THR EE TIMES A DAY TAKE ONE TABLET BY MOUTH THREE TIMES A DAY SOLD: 06/05/2020 [facility] atorvastatin 20 MG Oral Tablet ATORVASTATIN CALCIUM 01/16/2020 1 2:00:00 AM EST tablet 90 TAKE ONE TABLET BY MOUTH EVERY D AY TAKE ONE TABLET BY MOUTH EVERY DAY SOLD: 01/19/2020 [facility] 90 mcg/actuation 12/24/2019 12:00:00 AM EDT HFA aerosol inha ler 8 INHALE TWO PUFFS BY MOUTH FOUR TIMES A DAY NEEDED INHALE TWO PUFFS BY MOUTH FOUR TIMES A DAY NEEDED SOLD: 12/28/2019 [facility] 60 ACTUAT Albuterol 0.09 MG/ACTUAT Metered Dose Inhaler Albu terol Sulfate HFA 12/23/2019 12:00:00 AM EDT RESPIRATORY active [facility] ([facility] 5-325 mg 12/01/2019 12:00:00 AM EDT tablet 5 TAKE ONE TABLET BY MOUTH EVERY 4 TO 6 HOURS NEEDED FOR POST-OP PAIN MAXIMUM DAILY DOSE = 5 TAKE ONE TABLET BY MOUTH EVERY 4 TO 6 HOURS NEEDED FOR POST-OP PAIN MAXIMUM DAILY DOSE = 5 SOLD: 12/01/2019 [facility] Acetaminophen 325 MG / Hydrocodone Bitartrate 5 MG Ora l Tablet Hydrocodone-Acetaminophen 11/23/2019 12:00:00 AM EDT active [facility] ([facility] 325 mg (65 mg iron) 10/21/2019 12:00:00 AM EDT tablet 60 TAKE ONE TABLET BY MOUTH TWICE A DAY TAKE ONE TABLET BY MOUTH TWICE A DAY SOLD: 12/28/2019 [facility] 325 mg (65 mg iron) 10/21/2019 12:00:00 AM EDT tablet 60 TAKE ONE TABLET BY MOUTH TWICE A DAY TAKE ONE TABLET BY MOUTH TWICE A DAY SOLD: 10/25/2019 [facility] 325 mg (65 mg iron) 10/21/2019 12:00:00 AM EDT tablet 60 TAKE ONE TABLET BY MOUTH TWICE A DAY TAKE ONE TABLET BY MOUTH TWICE A DAY SOLD: 11/26/2019 [facility] 90 mcg/actuation 10/10/2019 12:00:00 AM EDT HFA aerosol inha ler 8 INHALE TWO PUFFS BY MOUTH FOUR TIMES A DAY NEEDED INHALE TWO PUFFS BY MOUTH FOUR TIMES A DAY NEEDED SOLD: 11/07/2019 [facility] 90 mcg/actuation 10/10/2019 12:00:00 AM EDT HFA aerosol inha ler 8 INHALE TWO PUFFS BY MOUTH FOUR TIMES A DAY NEEDED INHALE TWO PUFFS BY MOUTH FOUR TIMES A DAY NEEDED SOLD: 12/01/2019 [facility] 2.5 mcg/actuation 10/10/2019 12:00:00 AM EDT mist 12 INHALE TWO PUFFS BY MOUTH EVERY DAY INHALE TWO PUFFS BY MOUTH EVERY DAY SOLD: 01/12/2020 [facility] 200 ACTUAT Albuterol 0.09 MG/ACTUAT Metered Dose Inhaler [Pr oAir] Proair HFA 10/09/2019 12:00:00 AM EDT RESPIRATORY completed [facility] ([facility] 600 mg 09/23/2019 12:00:00 AM EDT tablet 90 TAKE ONE TABLET BY MOUTH THREE TIMES A DAY TAKE ONE TABLET BY MOUTH THREE TIMES A DAY SOLD: 11/26/2019 [facility] 600 mg 09/23/2019 12:00:00 AM EDT tablet 90 TAKE ONE TABLET BY MOUTH THREE TIMES A DAY TAKE ONE TABLET BY MOUTH THREE TIMES A DAY SOLD: 12/28/2019 [facility] 600 mg 09/23/2019 12:00:00 AM EDT tablet 90 TAKE ONE TABLET BY MOUTH THREE TIMES A DAY TAKE ONE TABLET BY MOUTH THREE TIMES A DAY SOLD: 10/25/2019 [facility] 600 mg 09/23/2019 12:00:00 AM EDT tablet 90 TAKE ONE TABLET BY MOUTH THREE TIMES A DAY TAKE ONE TABLET BY MOUTH THREE TIMES A DAY SOLD: 03/28/2020 [facility] 600 mg 09/23/2019 12:00:00 AM EDT tablet 90 TAKE ONE TABLET BY MOUTH THREE TIMES A DAY TAKE ONE TABLET BY MOUTH THREE TIMES A DAY SOLD: 02/01/2020 [facility] pantoprazole 40 MG Delayed Release Oral Tablet PANTOPRAZOLE SODIUM 08/31/2019 12:00:00 AM EDT tablet,delayed release (DR/EC) 90 T [place] ONE TABLET BY MOUTH EVERY DAY TAKE ONE TABLET BY MOUTH EVERY DAY SOLD: 12/09/2019 [facility] Metformin hydrochloride 850 MG Oral Tablet METFORMIN HCL 08/10/2019 12:00:00 AM EDT tablet 270 TAKE ONE TABLET BY MOUTH THR EE TIMES A DAY TAKE ONE TABLET BY MOUTH THREE TIMES A DAY SOLD: 11/14/2019 [facility] 5 mg 05/11/2019 12:00:00 AM EDT tablet 90 TAKE ONE TABLET BY MOUTH EVERY DAY TAKE ONE TABLET BY MOUTH EVERY DAY SOLD: 11/14/2019 [facility] 5 mg 05/11/2019 12:00:00 AM EDT tablet 90 TAKE ONE TABLET BY MOUTH EVERY DAY TAKE ONE TABLET BY MOUTH EVERY DAY SOLD: 02/15/2020 [facility] carvedilol 12.5 MG Oral Tablet CARVEDILOL 05/11/2019 12:00:00 AM EDT tablet 180 TAKE ONE TABLET BY MOUTH TWICE A DAY TAKE ONE TABLET BY MOUT H TWICE A DAY SOLD: 11/14/2019 [facility] 60 mg 05/11/2019 12:00:00 AM EDT capsule,delayed release (DR/EC) 90 TAKE ONE CAPSULE BY MOUTH EVERY DAY TAKE ONE CAPSULE BY MOUTH EVERY DAY SOLD: 11/14/2019 [facility] 60 mg 05/11/2019 12:00:00 AM EDT capsule,delayed release (DR/EC) 90 TAKE ONE CAPSULE BY MOUTH EVERY DAY TAKE ONE CAPSULE BY MOUTH EVERY DAY SOLD: 02/15/2020 [facility] carvedilol 12.5 MG Oral Tablet CARVEDILOL 05/11/2019 12:00:00 AM EDT tablet 180 TAKE ONE TABLET BY MOUTH TWICE A DAY TAKE ONE TABLET BY MOUT H TWICE A DAY SOLD: 02/15/2020 [facility] pantoprazole 40 MG Delayed Release Oral Tablet pantoprazole (PROTONIX) 40 MG tablet pantoprazole (PROTONIX) 40 MG tablet 02/26/2019 12:00:00 AM EST aborted nightly [facility] GNP Vitamin B-12 500 MCG Oral Tablet GNP Vitamin B-12 500 MC G Oral Tablet 12/04/2018 12:00:00 AM EDT 1 aborted GNP Vitamin B-12 ANUM (Aftab Dolan [facility]) [place] 3 Oral Capsule [place] 3 Oral Capsule 12/04/2018 12:00:00 AM EDT 1 aborted [place] 3 ANUM (Aftab Dolan [facility]) sitagliptin 100 MG Oral Tablet [Januvia] Januvia 100 M G Oral Tablet Januvia 100 MG Oral Tablet 12/04/2018 12:00:00 AM EDT 1 abo rted sitagliptin 100 MG Oral Tablet [Januvia] ANUM (Aftab [facility]) Metformin hydrochloride 850 MG Oral Tablet metFORMIN ( GLUCOPHAGE) 850 MG tablet metFORMIN (GLUCOPHAGE) 850 MG tablet 01/03/2015 12:00:00 AM EST 850 m g Oral aborted Take 850 mg by mouth 2 (two) times a day with meals [facility] Aspirin 325 MG Oral Tablet aspirin 325 MG tablet aspirin 325 MG tablet 01/03/2015 12:00:00 AM EST aborted aspirin 325 mg tablet Take 1 tablet every day by oral route. [facility] Insurance Providers Payer name Policy type / Coverage type Policy ID Covered green party ID Covered green party's relationship to oro Policy Oro Plan Information UHC UNITED MEDICARE COMPLETE G [id number] Self [id number] [facility] ([facility]) Commercial [id number] Self [id number] [facility] ([facility]) Commercial [id number] Self [id number] [facility] ([facility]) Commercial [id number] Self [id number] [facility] ([facility]) Commercial [id number] Self [id number] [facility] ([facility]) Commercial [id number] Self [id number] [facility] Commercial [id number] Self [id number] [facility] Commercial [id number] Self [id number] [facility] Commercial [id number] Self [id number] [facility] Commercial [id number] Self [id number] [employer] MEDICARE [id number] SP MEBSN SSQ UNITED [id number] Self [id number] [facility] MEDICARE [id number] Maddy [id number] [facility] MEDICARE [id number] [employer] Medicare Commercial [id number] Self AETNA MEDICARE O MEBSNSSQ [id number] S MEBSN SSQ AETNA MEDICARE MEBSNSSQ SP MEBSN SSQ AETNA MEDICARE MEBSNSSQ SP MEBSN SSQ [facility] MEDICARE O/P [id number] 18 [id number] [facility] MEDICARE -O/P [id number] 18 [id number] MEDICARE COMPLETE [id number] SP [id number] Problems, Conditions, and Diagnoses Code Display Name Description Problem Type Effective Dates Data Source(s) I10 Essential (primary) hypertension Essential (primary) h ypertension Diagnosis 12/13/2020 08:12:02 AM EDT [facility] G47.33 Obstructive sleep apnea (adult) (pediatr ic) Obstructive sleep apnea (adult) (pediatr Diagnosis 12/13/2020 08:12:02 AM EDT [facility] I63.9 Cerebral infarction, unspecified Cerebral infarc tion, unspecified Diagnosis 12/13/2020 08:12:02 AM EDT [facility] D50.9 Iron deficiency anemia, unspecified Iron deficie ncy anemia, unspecified Diagnosis 12/13/2020 08:12:02 AM EDT [facility] E66.01 Morbid (severe) obesity due to excess ca lories Morbid (severe) obesity due to excess ca Diagnosis 12/13/2020 08:12:02 AM EDT [facility] 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 Atherosclerotic heart disease of tribe Diagnosis 12/13/2020 08:12:02 AM EDT [facility] E78.00 Pure hypercholesterolemia, unspecified P ure hypercholesterolemia, unspecified Diagnosis 12/13/2020 08:12:02 AM EDT [facility] R06.02 Shortness of breath Shortness of breath Diagnosis 1 08:12:02 AM EDT [facility] J42 Unspecified chronic bronchitis Unspecified chronic bro nchitis Diagnosis 12/05/2020 08:53:52 AM EDT [facility] D64.9 Anemia, unspecified Anemia, unspecified Diagnosis 0 11/23/2020 06:00:00 AM EDT [facility] 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 Atherosclerotic heart disease of tribe Diagnosis 11/18/2020 03:19:48 PM EDT [facility] E11.9 Type 2 diabetes mellitus without complic ations Type 2 diabetes mellitus without complic Diagnosis 11/18/2020 03:19:48 PM EDT [facility] D50.9 Fe deficiency anemia Fe deficiency anemia [id number] 11/18/2020 12:00:00 AM EDT [facility] D64.9 Normocytic anemia Normocytic anemia [id number] 11/18/2020 12:00:00 AM EDT [facility] Surgeries/Procedures Procedure Description Date Indications Data Source(s) CARDIAC CATHETERIZATION <td>CARDIAC CATHETERIZATION</td><td>Routine</td><td>11/23/2020 8:14 AM EDT</td><td> Coronary artery disease involving tribe coronary artery of tribe heart without angina pectoris Normocytic anemia Cerebrovascular accident (CVA), unspecified mechanism Type 2 diabetes mellitus without complication, without long-term current use of insulin Shortness of breath Hypercholesterolemia Hypertension, essential Obesity, morbid</td><td> </td> 11/23/2020 08:14:16 AM EDT Obesity, morbidHypertension, essentialHy percholesterolemiaShortness of breathType 2 diabetes mellitus without complication, without long-term current use of insulinCerebrovascular accident (CVA), unspecified mechanismNormocytic anemiaCoronary artery disease involving tribe coronary artery of tribe heart without angina pectoris [facility] Obesity, morbid Hypertension, essential Hypercholesterolemia Shortness of breath Type 2 diabetes mellitus without complic ation, without long-term current use of insulin Cerebrovascular accident (CVA), unspecif ied mechanism Normocytic anemia Coronary artery disease involving tribe coronary artery of tribe heart without angina pectoris ECG ROUTINE ECG W/LEAST 12 LDS TRCG ONLY W/O I&R <td>E CG 12- LEAD</td><td>Routine</td><td>11/23/2020 6:39 AM EDT</td><td></td><td></td> 11/23/2020 06:39:47 AM EDT [facility] ECG ROUTINE ECG W/LEAST 12 LDS W/I&R <td>POCT AMB EKG</td><td>Routine</td><td>11/18/2020 4:28 PM EDT</td><td> Coronary artery disease involving tribe coronary artery of tribe heart without angina pectoris</td><td> </td> 11/18/2020 04:28:00 PM EDT Coronary artery disease involving tribe coronary artery of tribe heart without angina pectoris [facility] Coronary artery disease involving tribe coronary artery of tribe heart without angina pectoris OFFICE OUTPATIENT VISIT 25 MINUTES 10/21/2020 12:00:00 AM EDT [facility] ([facility] POCT AMB EKG <td>POCT AMB EKG</td><td>Rou sandi</td><td>09/08/2020 1:28 PM EDT</td><td> Coronary artery disease involving tribe coronary artery of tribe heart without angina pectoris</td><td> </td> 09/08/2020 01:28:00 PM EDT Coronary artery disease involving tribe coronary artery of tribe heart without angina pectoris [facility] Coronary artery disease involving tribe coronary artery of tribe heart without angina pectoris Extracapsular extraction of lens (procedure) History o f extracapsular cataract extraction PCIOL OU 02/02/2020 12:00:00 AM EST [facility]UM (Vincenzo Dolan MD [facility]) BLOOD COUNT COMPLETE AUTO&AUTO DIFRNTL WBC COUNT <td>C BC AND DIFFERENTIAL</td><td>Routine</td><td>01/22/2020</td><td></td><td> </td> 01/22/2020 12:00:00 AM EST [facility] HEMOGLOBIN GLYCOSYLATED A1C <td>HEMOGLOBIN A1C</td><td>Routine</td><td>01/22/2020</td><td></td><td> </td> 01/22/2020 12:00:00 AM EST [facility] HEPATIC FUNCTION PANEL <td>HEPATIC FUNCTION PANEL</td><td>Routine</td><td>01/22/2020</td><td></td><td> </td> 01/22/2020 12:00:00 AM EST [facility] LIPID PANEL <td>LIPID PANEL</td><td>Rout ine</td><td>01/22/2020</td><td></td><td> </td> 01/22/2020 12:00:00 AM EST [facility] BASIC METABOLIC PANEL CALCIUM TOTAL <td>BASIC METABOLI C PANEL</td><td>Routine</td><td>01/22/2020</td><td></td><td> </td> 01/22/2020 12:00:00 AM EST [facility] TENDON SHEATH INCISION 12/01/2019 12:00:00 AM EDT [facility] ([facility]) Results ID Date Data Source [id number] 11/23/2020 08:33:43 AM EDT [facility] Name Value Range Interpretation Code Description Data Ngoc rce(s) Supporting Document(s) &PDF [facility] [id number] oRX [file] [id number]= ID Date Data Source [id number] 11/23/2020 08:33:33 [facility]FORMATION[facility] Name Date of Age Gend*PT [id number] Zara Matthews 1945 75 years F HOPPT Location Admission Date/Time Visit ID Attending Provider11/23/20 0600 --- Cassi Diaz MD([id number]) EPI ID CSN Admitting Provider [id number] Cassi Diaz MD([id number])Pre-Procedure History and Physical:The history and physical were reviewed and the patient was examined.There are no changes to the H&P.BP 168/84 | Pulse 63 | Temp 98.2 F (Oral) | Resp 16 | Ht 1.499 m (4' 11")| Wt 84.3 kg (185 lb 13.6 oz) | SpO2 93% | No | BMI 37.54 kg/m The procedure risks and benefits were explained to the patient who agrees toproceed. Risks include but are not limited to heart attack, stroke, kidneyfailure, major bleeding, and infection and access site complications.Cassi Diaz MD Name Value Range Interpretation Code Description Data Ngoc rce(s) Supporting Document(s) ID Date Data Source [id number] 11/23/2020 06:52:38 AM EDT [facility] Name Value Range Interpretation Code Description Data Ngoc rce(s) Supporting Document(s) EKG [facility] [id number]VTyO3QylXVqt2usO8BzR1RcNIUeOXKGXB5WiYHi jb2 [file] eg7kPcGBkb0dqFM6g2/RBvLOHaVH5LAKIB4N7GzAoSq1uT/vp research/mJijST1N7zJ5pQ84qxH8Y0nx57upZ5 LMnWWcc+HiY5Zmb9a/HazOekpFqXPgcl/Mn99h6v1PdidA6SDIPlqK8Lrm/nQESa1Y4l/f4r9blvoirP G/pqS6+rbG2/g0rhaZoGaJVQLRCuuG7bfB8/7/EAo1 2sX+2BdgfahT+8qT46je/8uZg4d9Bt19h7nLT/tacCD+KAvWKD7DWYi1P6Xti015ebDSgwMO8qZqdR+5 KlTrKQu196jv20uNfdaJ+Bh8xj5ul25x6gAq4t+Xvv0+8MtXTytPSsrv1hQ5NEgdLAay561/6xVI425T 833yzoR5+Tjmpt+Dt2WIf6Hmzhjouxuu17C/4q+8Q7 anYieGI67ThtwFfhi5MI6vBgqUMDW7jG0bG64edOmIBKGDyxw5x94p8ZydI4rKJ9a4/qnGt0+223/XxO Snf1jGv+9tdq1300vY+Mb+yemEH5VbxepoKuQdLWZdiLWVFfRAMLRXSWEWEPHmUGbF+zLneTReIkQbJB IRGUobsdIBgvRYLLD8qgzWOJEVEHJFEQlCFUyuOLgy YxVhYvIxxsR7HVa4AMxWDnlrOeMcLzNkzr45sYo6Dfz+R4jYzCh/NgUoJJCYwSGCUwzgPjKBhHwSiBUQ RmTBKEaRNaZnTuyoQYb5OzBBqVa3P1YxmFclHLeh0/TWTACGVtfUK0x8OBnlXqLzEca7FJmaG1wNyaED kGCedBGAklCPZBsA+VrkYRC0b5nOsegH3OiFddSV48 HnjdnpqwC7EpntWm09pfu2X3cUkBw7ZkVzsUo4EWxHhRrx41oqlrox1HzTbCqgZARu2mX9MacPwyP+UG 5Wgv3PbXO5Y+E1P/EcbP189MzKnDV+2dPWZYaZp1Ry4BLi98DtUxf4vTQMqFMC2H+w5Uc7wYSTobgqtK Nldh4gWRzeeyDhs/UMlQVGQKRgoGXF4n5y0qTb8Q0h 7abmqW2QfUst013YzMh71RXhliuJP2u18W27Dz/mcABwg4K1Nu22/2K/QiYuq65mSzpuwigHpwCl1UGM i63O+IaXsn4mZayItIMHXAtU0kBMtoUSoXGKDRnlf3QsNyAtW7oNAT+YW8b7MNZDvSNG8k96I51RsSKz l6zwCyOcBgTGtR1r9pQit6Jad7dzDhmCCgtXowadVe SHPdMHDjfo5w70KH+uCBeRVhvuBz0PXFhLP3L524dnjeHkIi/hvDPRQqWAA4evL9hb/q1Ada+NCz72ng qLiteTdY8kl7dyfr9L4lXk3rE2Zzr/eGHOu6CYZxl17t3EvHl6Noqb74qcPtWd6dBCAtl8g9JGl1LtXs Iwj2TLmNmzpBrUsfsmcK1M18Uvenl7+RdbmbbFyWYW F4n1dIeFLzX6Ik7PxhxWgUh6oqxz0nDPsXLRc0Ynf7aqL51lRHd8/lEbrcW0K3AP9RPd39qyJuLm6AcX Dak/Xk0hppCrNvSoza9PD03LyJG3TIFnq/xmvXhFrSLfoWUyRBb9oH/HkyZvEXphmeYco8GN1pAaeZJu zRyPod6JKzscm7YpvhVxwrD1yizJAC+r/Matteo+wDZx84 [file] [id number] ID Date Data Source [id number] 11/19/2020 09:45:00 AM EDT [facility] ([facility] Name Value Range Interpretation Code Description Data Ngoc rce(s) Supporting Document(s) Laboratory test finding (navigational concept) Laboratory test result [facility] ([facility] ASSAY INFORMATION: Real Time RT-PCR NOTE: The COVID-19 assay has been cleared by the U.S. Food and Drug Administration under the Emergency Use Authorization (EUA). [facility] and [facility] are designated as high complexity laboratories by the Clinical Laboratory Improvement Amendments of 1988(CLIA) and are qualified to perform this test. Not Detected ID Date Data Source [id number] 10/21/2020 10:42:00 AM EDT [facility] ([facility] Name Value Range Interpretation Code Description Data Ngoc rce(s) Supporting Document(s) WBC 7.6 10E3/uL 4.1-10.9 [facility] ([facility] NORMAL RANGES Age WBC RBC HGB HCT [...] HCT IS 5% LESS SOURCE FOR DATA: [employer] 1800 OPERATION MANUAL( AUTOMATED BLOOD COUNTS AND [...] DESIRABLE: <130 MG/DL <110 MG/DL BORDERLINE-HIGH RISK: 130- 159 MG/DL 110-129 MG/DL HIGH RISK: >160 MG/DL >130 MG/DL *CHILDREN AND ADOLESCENTS REPRESENTS INDIVIDUALA AGED 2-19 YEARS EXCLUSIVE. HCT 32.4 % 37.0-51.0 Below low normal [facility] ( [facility] NORMAL RANGES Age WBC RBC HGB HCT [...] HCT IS 5% LESS SOURCE FOR DATA: [employer] 1800 OPERATION MANUAL( AUTOMATED BLOOD COUNTS AND [...] DESIRABLE: <130 MG/DL <110 MG/DL BORDERLINE-HIGH RISK: 130- 159 MG/DL 110-129 MG/DL HIGH RISK: >160 MG/DL >130 MG/DL *CHILDREN AND ADOLESCENTS REPRESENTS INDIVIDUALA AGED 2-19 YEARS EXCLUSIVE. HGB 10.1 g/dL 12.0-18.0 Below low normal [facility] ( [facility] NORMAL RANGES Age WBC RBC HGB HCT [...] HCT IS 5% LESS SOURCE FOR DATA: [employer] 1800 OPERATION MANUAL( AUTOMATED BLOOD COUNTS AND [...] DESIRABLE: <130 MG/DL <110 MG/DL BORDERLINE-HIGH RISK: 130- 159 MG/DL 110-129 MG/DL HIGH RISK: >160 MG/DL >130 MG/DL *CHILDREN AND ADOLESCENTS REPRESENTS INDIVIDUALA AGED 2-19 YEARS EXCLUSIVE. RBC 3.75 10E6/uL 4.20-6.30 Below low normal [facility] ([facility] NORMAL RANGES Age WBC RBC HGB HCT [...] HCT IS 5% LESS SOURCE FOR DATA: [employer] 1800 OPERATION MANUAL( AUTOMATED BLOOD COUNTS AND [...] DESIRABLE: <130 MG/DL <110 MG/DL BORDERLINE-HIGH RISK: 130- 159 MG/DL 110-129 MG/DL HIGH RISK: >160 MG/DL >130 MG/DL *CHILDREN AND ADOLESCENTS REPRESENTS INDIVIDUALA AGED 2-19 YEARS EXCLUSIVE. MCH 26.9 pg 26.0-32.0 [facility] ([facility] NORMAL RANGES Age WBC RBC HGB HCT [...] HCT IS 5% LESS SOURCE FOR DATA: [employer] 1800 OPERATION MANUAL( AUTOMATED BLOOD COUNTS AND [...] DESIRABLE: <130 MG/DL <110 MG/DL BORDERLINE-HIGH RISK: 130- 159 MG/DL 110-129 MG/DL HIGH RISK: >160 MG/DL >130 MG/DL *CHILDREN AND ADOLESCENTS REPRESENTS INDIVIDUALA AGED 2-19 YEARS EXCLUSIVE. MCV 86.4 fL 80.0-97.0 [facility] ([facility] NORMAL RANGES Age WBC RBC HGB HCT [...] HCT IS 5% LESS SOURCE FOR DATA: [employer] OPERATION MANUAL( AUTOMATED BLOOD COUNTS AND [...] DESIRABLE: <130 MG/DL <110 MG/DL BORDERLINE-HIGH RISK: 130- 159 MG/DL 110-129 MG/DL HIGH RISK: >160 MG/DL >130 MG/DL *CHILDREN AND ADOLESCENTS REPRESENTS INDIVIDUALA AGED 2-19 YEARS EXCLUSIVE. MCHC 31.2 g/dL 31.0-36.0 [facility] ([facility] NORMAL RANGES Age WBC RBC HGB HCT [...] HCT IS 5% LESS SOURCE FOR DATA: [employer] 1800 OPERATION MANUAL( AUTOMATED BLOOD COUNTS AND [...] DESIRABLE: <130 MG/DL <110 MG/DL BORDERLINE-HIGH RISK: 130- 159 MG/DL 110-129 MG/DL HIGH RISK: >160 MG/DL >130 MG/DL *CHILDREN AND ADOLESCENTS REPRESENTS INDIVIDUALA AGED 2-19 YEARS EXCLUSIVE. RDW-CV 15.9 % 11.5-14.5 Above high normal [facility] ([facility] NORMAL RANGES Age WBC RBC HGB HCT [...] HCT IS 5% LESS SOURCE FOR DATA: [employer] 1800 OPERATION MANUAL( AUTOMATED BLOOD COUNTS AND [...] DESIRABLE: <130 MG/DL <110 MG/DL BORDERLINE-HIGH RISK: 130- 159 MG/DL 110-129 MG/DL HIGH RISK: >160 MG/DL >130 MG/DL *CHILDREN AND ADOLESCENTS REPRESENTS INDIVIDUALA AGED 2-19 YEARS EXCLUSIVE. Lym% 20.1 % 10.0-58.5 [facility] ([facility] NORMAL RANGES Age WBC RBC HGB HCT [...] HCT IS 5% LESS SOURCE FOR DATA: [employer] 1800 OPERATION MANUAL( AUTOMATED BLOOD COUNTS AND [...] DESIRABLE: <130 MG/DL <110 MG/DL BORDERLINE-HIGH RISK: 130- 159 MG/DL 110-129 MG/DL HIGH RISK: >160 MG/DL >130 MG/DL *CHILDREN AND ADOLESCENTS REPRESENTS INDIVIDUALA AGED 2-19 YEARS EXCLUSIVE. PLT 240 10E3/uL 140-440 [employer] ([facility] NORMAL RANGES Age WBC RBC HGB HCT [...] HCT IS 5% LESS SOURCE FOR DATA: The [employer] OPERATION MANUAL( AUTOMATED BLOOD COUNTS AND [...] DESIRABLE: <130 MG/DL <110 MG/DL BORDERLINE-HIGH RISK: 130- 159 MG/DL 110-129 MG/DL HIGH RISK: >160 MG/DL >130 MG/DL *CHILDREN AND ADOLESCENTS REPRESENTS INDIVIDUALA AGED 2-19 YEARS EXCLUSIVE. Lym# 1.5 10E3/uL 0.6-4.1 [facility] ([facility] NORMAL RANGES Age WBC RBC HGB HCT [...] HCT IS 5% LESS SOURCE FOR DATA: The [employer] OPERATION MANUAL( AUTOMATED BLOOD COUNTS AND [...] DESIRABLE: <130 MG/DL <110 MG/DL BORDERLINE-HIGH RISK: 130- 159 MG/DL 110-129 MG/DL HIGH RISK: >160 MG/DL >130 MG/DL *CHILDREN AND ADOLESCENTS REPRESENTS INDIVIDUALA AGED 2-19 YEARS EXCLUSIVE. MXD% 12.0 % 0.1-24.0 [facility] ([facility] NORMAL RANGES Age WBC RBC HGB HCT [...] HCT IS 5% LESS SOURCE FOR DATA: The [employer] OPERATION MANUAL( AUTOMATED BLOOD COUNTS AND [...] DESIRABLE: <130 MG/DL <110 MG/DL BORDERLINE-HIGH RISK: 130- 159 MG/DL 110-129 MG/DL HIGH RISK: >160 MG/DL >130 MG/DL *CHILDREN AND ADOLESCENTS REPRESENTS INDIVIDUALA AGED 2-19 YEARS EXCLUSIVE. Neut% 67.9 % 37.0-92.0 [facility] ([facility] NORMAL RANGES Age WBC RBC HGB HCT [...] HCT IS 5% LESS SOURCE FOR DATA: The [employer] OPERATION MANUAL( AUTOMATED BLOOD COUNTS AND [...] DESIRABLE: <130 MG/DL <110 MG/DL BORDERLINE-HIGH RISK: 130- 159 MG/DL 110-129 MG/DL HIGH RISK: >160 MG/DL >130 MG/DL *CHILDREN AND ADOLESCENTS REPRESENTS INDIVIDUALA AGED 2-19 YEARS EXCLUSIVE. MXD# 0.9 10E3/uL 0.0-1.8 [facility] ([facility] NORMAL RANGES Age WBC RBC HGB HCT [...] HCT IS 5% LESS SOURCE FOR DATA: The [employer] OPERATION MANUAL( AUTOMATED BLOOD COUNTS AND [...] DESIRABLE: <130 MG/DL <110 MG/DL BORDERLINE-HIGH RISK: 130- 159 MG/DL 110-129 MG/DL HIGH RISK: >160 MG/DL >130 MG/DL *CHILDREN AND ADOLESCENTS REPRESENTS INDIVIDUALA AGED 2-19 YEARS EXCLUSIVE. Neut# 5.2 % 2.0-7.8 [facility] ([facility] NORMAL RANGES Age WBC RBC HGB HCT [...] HCT IS 5% LESS SOURCE FOR DATA: The [employer] OPERATION MANUAL( AUTOMATED BLOOD COUNTS AND [...] DESIRABLE: <130 MG/DL <110 MG/DL BORDERLINE-HIGH RISK: 130- 159 MG/DL 110-129 MG/DL HIGH RISK: >160 MG/DL >130 MG/DL *CHILDREN AND ADOLESCENTS REPRESENTS INDIVIDUALA AGED 2-19 YEARS EXCLUSIVE. MPV 10.8 fL 9.0-13.0 [facility] ([facility] NORMAL RANGES Age WBC RBC HGB HCT [...] HCT IS 5% LESS SOURCE FOR DATA: The [employer] OPERATION MANUAL( AUTOMATED BLOOD COUNTS AND [...] DESIRABLE: <130 MG/DL <110 MG/DL BORDERLINE-HIGH RISK: 130- 159 MG/DL 110-129 MG/DL HIGH RISK: >160 MG/DL >130 MG/DL *CHILDREN AND ADOLESCENTS REPRESENTS INDIVIDUALA AGED 2-19 YEARS EXCLUSIVE. ID Date Data Source [id number] 10/21/2020 10:42:00 AM EDT [facility] ([facility] Name Value Range Interpretation Code Description Data Ngoc rce(s) Supporting Document(s) Trig 85 mg/dL 40-200 [facility] ([facility] NORMAL RANGES Age WBC RBC HGB HCT [...] HCT IS 5% LESS SOURCE FOR DATA: The [employer] OPERATION MANUAL( AUTOMATED BLOOD COUNTS AND [...] DESIRABLE: <130 MG/DL <110 MG/DL BORDERLINE-HIGH RISK: 130- 159 MG/DL 110-129 MG/DL HIGH RISK: >160 MG/DL >130 MG/DL *CHILDREN AND ADOLESCENTS REPRESENTS INDIVIDUALA AGED 2-19 YEARS EXCLUSIVE. Cholesterol in HDL [Mass/volume] in Serum or Plasma 67 mg/dL 45-65 Above high normal [facility] ([facility] NORMAL RANGES Age WBC RBC HGB HCT [...] HCT IS 5% LESS SOURCE FOR DATA: The [employer] OPERATION MANUAL( AUTOMATED BLOOD COUNTS AND [...] DESIRABLE: <130 MG/DL <110 MG/DL BORDERLINE-HIGH RISK: 130- 159 MG/DL 110-129 MG/DL HIGH RISK: >160 MG/DL >130 MG/DL *CHILDREN AND ADOLESCENTS REPRESENTS INDIVIDUALA AGED 2-19 YEARS EXCLUSIVE. Chol 124 mg/dL 0-200 [facility] ([facility] NORMAL RANGES Age WBC RBC HGB HCT [...] HCT IS 5% LESS SOURCE FOR DATA: The [employer] OPERATION MANUAL( AUTOMATED BLOOD COUNTS AND [...] DESIRABLE: <130 MG/DL <110 MG/DL BORDERLINE-HIGH RISK: 130- 159 MG/DL 110-129 MG/DL HIGH RISK: >160 MG/DL >130 MG/DL *CHILDREN AND ADOLESCENTS REPRESENTS INDIVIDUALA AGED 2-19 YEARS EXCLUSIVE. LDL_C 41 Calc 75-129 Below low normal [facility] ( [facility] NORMAL RANGES Age WBC RBC HGB HCT [...] HCT IS 5% LESS SOURCE FOR DATA: The [employer] OPERATION MANUAL( AUTOMATED BLOOD COUNTS AND [...] DESIRABLE: <130 MG/DL <110 MG/DL BORDERLINE-HIGH RISK: 130- 159 MG/DL 110-129 MG/DL HIGH RISK: >160 MG/DL >130 MG/DL *CHILDREN AND ADOLESCENTS REPRESENTS INDIVIDUALA AGED 2-19 YEARS EXCLUSIVE. Cho/HDL Ratio 1.9 CALC [employer] ([facility] NORMAL RANGES Age WBC RBC HGB HCT [...] HCT IS 5% LESS SOURCE FOR DATA: The [employer] OPERATION MANUAL( AUTOMATED BLOOD COUNTS AND [...] DESIRABLE: <130 MG/DL <110 MG/DL BORDERLINE-HIGH RISK: 130- 159 MG/DL 110-129 MG/DL HIGH RISK: >160 MG/DL >130 MG/DL *CHILDREN AND ADOLESCENTS REPRESENTS INDIVIDUALA AGED 2-19 YEARS EXCLUSIVE. ID Date Data Source [id number] 10/21/2020 10:42:00 AM EDT [facility] ([facility] Name Value Range Interpretation Code Description Data Ngoc rce(s) Supporting Document(s) Glu 130 mg/dL 70-110 Above high normal [facility] ([facility] NORMAL RANGES Age WBC RBC HGB HCT [...] HCT IS 5% LESS SOURCE FOR DATA: The [employer] 1800 OPERATION MANUAL( AUTOMATED BLOOD COUNTS AND [...] DESIRABLE: <130 MG/DL <110 MG/DL BORDERLINE-HIGH RISK: 130- 159 MG/DL 110-129 MG/DL HIGH RISK: >160 MG/DL >130 MG/DL *CHILDREN AND ADOLESCENTS REPRESENTS INDIVIDUALA AGED 2-19 YEARS EXCLUSIVE. BUN 21 mg/dL 8-23 [facility] ([facility] NORMAL RANGES Age WBC RBC HGB HCT [...] HCT IS 5% LESS SOURCE FOR DATA: The [employer] OPERATION MANUAL( AUTOMATED BLOOD COUNTS AND [...] DESIRABLE: <130 MG/DL <110 MG/DL BORDERLINE-HIGH RISK: 130- 159 MG/DL 110-129 MG/DL HIGH RISK: >160 MG/DL >130 MG/DL *CHILDREN AND ADOLESCENTS REPRESENTS INDIVIDUALA AGED 2-19 YEARS EXCLUSIVE. BUN/Creatinine Ratio 20.2 CALC [facility] ([facility] NORMAL RANGES Age WBC RBC HGB HCT [...] HCT IS 5% LESS SOURCE FOR DATA: The [employer] OPERATION MANUAL( AUTOMATED BLOOD COUNTS AND [...] DESIRABLE: <130 MG/DL <110 MG/DL BORDERLINE-HIGH RISK: 130- 159 MG/DL 110-129 MG/DL HIGH RISK: >160 MG/DL >130 MG/DL *CHILDREN AND ADOLESCENTS REPRESENTS INDIVIDUALA AGED 2-19 YEARS EXCLUSIVE. Creat 1.0 mg/dL 0.5-1.0 [facility] ([facility] NORMAL RANGES Age WBC RBC HGB HCT [...] HCT IS 5% LESS SOURCE FOR DATA: The [employer] OPERATION MANUAL( AUTOMATED BLOOD COUNTS AND [...] DESIRABLE: <130 MG/DL <110 MG/DL BORDERLINE-HIGH RISK: 130- 159 MG/DL 110-129 MG/DL HIGH RISK: >160 MG/DL >130 MG/DL *CHILDREN AND ADOLESCENTS REPRESENTS INDIVIDUALA AGED 2-19 YEARS EXCLUSIVE. Na 136 mmol/L 136-145 [facility] ([facility] NORMAL RANGES Age WBC RBC HGB HCT [...] HCT IS 5% LESS SOURCE FOR DATA: The [employer] 1800 OPERATION MANUAL( AUTOMATED BLOOD COUNTS AND [...] DESIRABLE: <130 MG/DL <110 MG/DL BORDERLINE-HIGH RISK: 130- 159 MG/DL 110-129 MG/DL HIGH RISK: >160 MG/DL >130 MG/DL *CHILDREN AND ADOLESCENTS REPRESENTS INDIVIDUALA AGED 2-19 YEARS EXCLUSIVE. K 5.0 mmol/L 3.5-5.1 [facility] ([facility] NORMAL RANGES Age WBC RBC HGB HCT [...] HCT IS 5% LESS SOURCE FOR DATA: The [employer] 1800 OPERATION MANUAL( AUTOMATED BLOOD COUNTS AND [...] DESIRABLE: <130 MG/DL <110 MG/DL BORDERLINE-HIGH RISK: 130- 159 MG/DL 110-129 MG/DL HIGH RISK: >160 MG/DL >130 MG/DL *CHILDREN AND ADOLESCENTS REPRESENTS INDIVIDUALA AGED 2-19 YEARS EXCLUSIVE. CL 103.5 mmol/L 98.0-107.0 [facility] ([facility] NORMAL RANGES Age WBC RBC HGB HCT [...] HCT IS 5% LESS SOURCE FOR DATA: The [employer] 1800 OPERATION MANUAL( AUTOMATED BLOOD COUNTS AND [...] DESIRABLE: <130 MG/DL <110 MG/DL BORDERLINE-HIGH RISK: 130- 159 MG/DL 110-129 MG/DL HIGH RISK: >160 MG/DL >130 MG/DL *CHILDREN AND ADOLESCENTS REPRESENTS INDIVIDUALA AGED 2-19 YEARS EXCLUSIVE. Co2 21.7 mmol/L 22.0-29.0 Below low normal [facility] ([facility] NORMAL RANGES Age WBC RBC HGB HCT [...] HCT IS 5% LESS SOURCE FOR DATA: [employer] 1800 OPERATION MANUAL( AUTOMATED BLOOD COUNTS AND [...] DESIRABLE: <130 MG/DL <110 MG/DL BORDERLINE-HIGH RISK: 130- 159 MG/DL 110-129 MG/DL HIGH RISK: >160 MG/DL >130 MG/DL *CHILDREN AND ADOLESCENTS REPRESENTS INDIVIDUALA AGED 2-19 YEARS EXCLUSIVE. Alb 4.2 g/dL 3.4-4.8 [facility] ([facility] NORMAL RANGES Age WBC RBC HGB HCT [...] HCT IS 5% LESS SOURCE FOR DATA: The [employer] 1800 OPERATION MANUAL( AUTOMATED BLOOD COUNTS AND [...] DESIRABLE: <130 MG/DL <110 MG/DL BORDERLINE-HIGH RISK: 130- 159 MG/DL 110-129 MG/DL HIGH RISK: >160 MG/DL >130 MG/DL *CHILDREN AND ADOLESCENTS REPRESENTS INDIVIDUALA AGED 2-19 YEARS EXCLUSIVE. CA 9.0 mg/dL 8.6-10.2 [facility] ([facility] NORMAL RANGES Age WBC RBC HGB HCT [...] HCT IS 5% LESS SOURCE FOR DATA: The [employer] 1800 OPERATION MANUAL( AUTOMATED BLOOD COUNTS AND [...] DESIRABLE: <130 MG/DL <110 MG/DL BORDERLINE-HIGH RISK: 130- 159 MG/DL 110-129 MG/DL HIGH RISK: >160 MG/DL >130 MG/DL *CHILDREN AND ADOLESCENTS REPRESENTS INDIVIDUALA AGED 2-19 YEARS EXCLUSIVE. TP 7.1 g/dL 6.6-8.7 [facility] ([facility] NORMAL RANGES Age WBC RBC HGB HCT [...] HCT IS 5% LESS SOURCE FOR DATA: The [employer] 1800 OPERATION MANUAL( AUTOMATED BLOOD COUNTS AND [...] DESIRABLE: <130 MG/DL <110 MG/DL BORDERLINE-HIGH RISK: 130- 159 MG/DL 110-129 MG/DL HIGH RISK: >160 MG/DL >130 MG/DL *CHILDREN AND ADOLESCENTS REPRESENTS INDIVIDUALA AGED 2-19 YEARS EXCLUSIVE. Globulin 2.9 CALC [facility] ([facility] NORMAL RANGES Age WBC RBC HGB HCT [...] HCT IS 5% LESS SOURCE FOR DATA: The [employer] 1800 OPERATION MANUAL( AUTOMATED BLOOD COUNTS AND [...] DESIRABLE: <130 MG/DL <110 MG/DL BORDERLINE-HIGH RISK: 130- 159 MG/DL 110-129 MG/DL HIGH RISK: >160 MG/DL >130 MG/DL *CHILDREN AND ADOLESCENTS REPRESENTS INDIVIDUALA AGED 2-19 YEARS EXCLUSIVE. A/G Ratio 1.5 CALC [facility] ([facility] NORMAL RANGES Age WBC RBC HGB HCT [...] HCT IS 5% LESS SOURCE FOR DATA: The [employer] 1800 OPERATION MANUAL( AUTOMATED BLOOD COUNTS AND [...] DESIRABLE: <130 MG/DL <110 MG/DL BORDERLINE-HIGH RISK: 130- 159 MG/DL 110-129 MG/DL HIGH RISK: >160 MG/DL >130 MG/DL *CHILDREN AND ADOLESCENTS REPRESENTS INDIVIDUALA AGED 2-19 YEARS EXCLUSIVE. Alp 88.0 U/L 35-129 [facility] ([facility] NORMAL RANGES Age WBC RBC HGB HCT [...] HCT IS 5% LESS SOURCE FOR DATA: [employer] DYN 1800 OPERATION MANUAL( AUTOMATED BLOOD COUNTS AND [...] DESIRABLE: <130 MG/DL <110 MG/DL BORDERLINE-HIGH RISK: 130- 159 MG/DL 110-129 MG/DL HIGH RISK: >160 MG/DL >130 MG/DL *CHILDREN AND ADOLESCENTS REPRESENTS INDIVIDUALA AGED 2-19 YEARS EXCLUSIVE. Alt (SGPT) 7 U/L 0-41 [facility] ([facility] NORMAL RANGES Age WBC RBC HGB HCT [...] HCT IS 5% LESS SOURCE FOR DATA: The [employer] 1800 OPERATION MANUAL( AUTOMATED BLOOD COUNTS AND [...] DESIRABLE: <130 MG/DL <110 MG/DL BORDERLINE-HIGH RISK: 130- 159 MG/DL 110-129 MG/DL HIGH RISK: >160 MG/DL >130 MG/DL *CHILDREN AND ADOLESCENTS REPRESENTS INDIVIDUALA AGED 2-19 YEARS EXCLUSIVE. Ast (Sgot) 10 U/L 0-40 [facility] ([facility] NORMAL RANGES Age WBC RBC HGB HCT [...] HCT IS 5% LESS SOURCE FOR DATA: The [employer] 1800 OPERATION MANUAL( AUTOMATED BLOOD COUNTS AND [...] DESIRABLE: <130 MG/DL <110 MG/DL BORDERLINE-HIGH RISK: 130- 159 MG/DL 110-129 MG/DL HIGH RISK: >160 MG/DL >130 MG/DL *CHILDREN AND ADOLESCENTS REPRESENTS INDIVIDUALA AGED 2-19 YEARS EXCLUSIVE. Tbili 0.20 mg/dL 0.0-1.2 [facility] NORMAL RANGES Age WBC RBC HGB HCT [...] HCT IS 5% LESS SOURCE FOR DATA: The [employer] 1800 OPERATION MANUAL( AUTOMATED BLOOD COUNTS AND [...] DESIRABLE: <130 MG/DL <110 MG/DL BORDERLINE-HIGH RISK: 130- 159 MG/DL 110-129 MG/DL HIGH RISK: >160 MG/DL >130 MG/DL *CHILDREN AND ADOLESCENTS REPRESENTS INDIVIDUALA AGED 2-19 YEARS EXCLUSIVE. eGFR 64 # [facility] ( [facility] NORMAL RANGES Age WBC RBC HGB HCT [...] HCT IS 5% LESS SOURCE FOR DATA: The [employer] 1800 OPERATION MANUAL( AUTOMATED BLOOD COUNTS AND [...] DESIRABLE: <130 MG/DL <110 MG/DL BORDERLINE-HIGH RISK: 130- 159 MG/DL 110-129 MG/DL HIGH RISK: >160 MG/DL >130 MG/DL *CHILDREN AND ADOLESCENTS REPRESENTS INDIVIDUALA AGED 2-19 YEARS EXCLUSIVE. Anion Gap 16 mmol/L [facility] NORMAL RANGES Age WBC RBC HGB HCT [...] HCT IS 5% LESS SOURCE FOR DATA: The [employer] 1800 OPERATION MANUAL( AUTOMATED BLOOD COUNTS AND [...] DESIRABLE: <130 MG/DL <110 MG/DL BORDERLINE-HIGH RISK: 130- 159 MG/DL 110-129 MG/DL HIGH RISK: >160 MG/DL >130 MG/DL *CHILDREN AND ADOLESCENTS REPRESENTS INDIVIDUALA AGED 2-19 YEARS EXCLUSIVE. Osmolality-Calculated 277.4 CALC [facility] ([facility] NORMAL RANGES Age WBC RBC HGB HCT [...] HCT IS 5% LESS SOURCE FOR DATA: [employer] DYN 1800 OPERATION MANUAL( AUTOMATED BLOOD COUNTS AND [...] DESIRABLE: <130 MG/DL <110 MG/DL BORDERLINE-HIGH RISK: 130- 159 MG/DL 110-129 MG/DL HIGH RISK: >160 MG/DL >130 MG/DL *CHILDREN AND ADOLESCENTS REPRESENTS INDIVIDUALA AGED 2-19 YEARS EXCLUSIVE. eGFR Non-Afr. German 55 # [facility] ([facility] NORMAL RANGES Age WBC RBC HGB HCT [...] HCT IS 5% LESS SOURCE FOR DATA: The [employer] 1800 OPERATION MANUAL( AUTOMATED BLOOD COUNTS AND [...] DESIRABLE: <130 MG/DL <110 MG/DL BORDERLINE-HIGH RISK: 130- 159 MG/DL 110-129 MG/DL HIGH RISK: >160 MG/DL >130 MG/DL *CHILDREN AND ADOLESCENTS REPRESENTS INDIVIDUALA AGED 2-19 YEARS EXCLUSIVE. ID Date Data Source [id number] 10/21/2020 10:41:00 AM EDT [facility] ([facility] Name Value Range Interpretation Code Description Data Ngoc rce(s) Supporting Document(s) Hemoglobin A1c/Hemoglobin.total in Blood 7.0 % 4.8-5.6 Above high normal [facility] ([facility] <content>Prediabetes: 5.7 - 6.4</content >
<content>Diabetes: >6.4</content>
<content>Glycemic control for adults with diabetes: <7.0</content>
<content></content> ID Date Data Source [id number] 01/22/2020 01:46:00 PM EST [facility] ([facility] Name Value Range Interpretation Code Description Data Ngoc rce(s) Supporting Document(s) Iron binding capacity.unsaturated [Mass/volume] in Serum or Plasma 299 ug/dL 118-369 [facility] Iron [Mass/volume] in Serum or Plasma 50 ug/dL 27-139 [facility] ([facility] Iron binding capacity [Mass/volume] in Serum or Plasma 349 ug/dL 250 -450 [facility] ([facility] Iron saturation [Mass Fraction] in Serum or Plasma 14 % 15- 55 Below low normal [facility] ([facility] ID Date Data Source [id number] 01/22/2020 01:46:00 PM EST [facility] ([facility] Name Value Range Interpretation Code Description Data Ngoc rce(s) Supporting Document(s) Hemoglobin A1c/Hemoglobin.total in Blood 6.1 % 4.8-5.6 Above high normal [facility] ([facility] <content>Prediabetes: 5.7 - 6.4</content >
<content>Diabetes: >6.4</content>
<content>Glycemic control for adults with diabetes: <7.0</content>
<content></content> ID Date Data Source [id number] 01/22/2020 01:46:00 PM EST [facility] ([facility] Name Value Range Interpretation Code Description Data Ngoc rce(s) Supporting Document(s) Cholesterol [Mass/volume] in Serum or Plasma 188 mg/dL 100-199 [facility] ([facility] Laboratory test finding (navigational concept) 29 mg/dL 5-40 [facility] ([facility] Cholesterol in HDL [Mass/volume] in Serum or Plasma 58 mg/dL [facility] ([facility] Triglyceride [Mass/volume] in Serum or Plasma 168 mg/dL 0-149 Above high normal [facility] ([facility] Comment: Laboratory test result [facility] ([facility] Laboratory test finding (navigational concept) 101 mg/dL 0-99 Above high normal [facility] ([facility] ID Date Data Source [id number] 01/22/2020 01:46:00 PM EST [facility] ([facility] Name Value Range Interpretation Code Description Data Ngoc rce(s) Supporting Document(s) BUN 23 mg/dL 8-27 [facility] ([facility] Creatinine [Mass/volume] in Serum or Plasma 0.98 mg/dL 0.57-1.00 [facility] ([facility] Glucose [Mass/volume] in Serum or Plasma 101 mg/dL 65-99 Above high normal [facility] ([facility] eGFR If Africn Am 66 mL/min/1.73 [facility] ([facility] Urea nitrogen/Creatinine [Mass Ratio] in Serum or Plasma 23 1 2-28 [facility] ([facility] eGFR If NonAfricn Am 57 mL/min/1.73 Below low normal [facility] ([facility] Sodium [Moles/volume] in Serum or Plasma 140 mmol/L 134-144 [facility] ([facility] Potassium [Moles/volume] in Serum or Plasma 5.6 mmol/L 3.5- 5.2 Above high normal [facility] ([facility] ) Chloride [Moles/volume] in Serum or Plasma 103 mmol/L 96-106 [facility] ([facility] Protein [Mass/volume] in Serum or Plasma 6.9 g/dL 6.0-8.5 [facility] ([facility] Albumin [Mass/volume] in Serum or Plasma 4.2 g/dL 3.7-4.7 [facility] ([facility] Calcium [Mass/volume] in Serum or Plasma 9.5 mg/dL 8.7-10.3 [facility] ([facility] Carbon dioxide, total [Moles/volume] in Serum or Plasma 24 mmol/L 20 -29 [facility] ([facility] Bilirubin.total [Mass/volume] in Serum or Plasma Laboratory test result 0.0-1.2 [facility] ([facility] ) Albumin/Globulin [Mass Ratio] in Serum or Plasma 1.6 1.2-2.2 [facility] ([facility] Globulin [Mass/volume] in Serum by calculation 2.7 g/dL 1.5-4.5 [facility] ([facility] Aspartate aminotransferase [Enzymatic activity/volume] in Serum or Plasma 12 IU/L 0-40 [facility] Alkaline phosphatase [Enzymatic activity/volume] in Serum or Plasma 96 IU/L 39-117 [facility] ([facility] Alanine aminotransferase [Enzymatic activity/volume] in Seru m or Plasma 9 IU/L 0-32 [facility] ([facility] ID Date Data Source [id number] 01/22/2020 01:46:00 PM EST [facility] ([facility] Name Value Range Interpretation Code Description Data Ngoc rce(s) Supporting Document(s) Leukocytes [#/volume] in Blood by Automated count 7.6 x10E3/uL 3.4-10 .8 [facility] ([facility] Erythrocytes [#/volume] in Blood by Automated count 4.01 x10E6/uL 3.7 7-5.28 [facility] ([facility] Hemoglobin [Mass/volume] in Blood 10.9 g/dL 11.1-15.9 Below low nor mal [facility] ([facility] Erythrocyte mean corpuscular hemoglobin [Entitic mass] by Automated count 27.2 pg 26.6-33.0 [facility] ([facility] Hematocrit [Volume Fraction] of Blood by Automated count 34.0 % 3 4.0-46.6 [facility] ([facility] Erythrocyte mean corpuscular volume [Entitic volume] by Auto mated count 85 fL 79-97 [facility] ([facility] Erythrocyte mean corpuscular hemoglobin concentration [Mass/volume] by Automated count 32.1 g/dL 31.5-35.7 [facility] ([facility] Platelets [#/volume] in Blood by Automated count 270 x10E3/uL 150-450 [facility] ([facility] Erythrocyte distribution width [Ratio] by Automated count 16.7 % 11.7-15.4 Above high normal [facility] ([facility] ) Neutrophils 68 % [facility] Lymphs 21 % [facility] Monocytes/100 leukocytes in Blood by Automated count 8 % [facility] ([facility] Eosinophils/100 leukocytes in Blood by Automated count 2 % [facility] ([facility] Basophils/100 leukocytes in Blood by Automated count 1 % [facility] ([facility] Immature cells [#/volume] in Blood Laboratory test result [facility] ([facility] Neutrophils [#/volume] in Blood by Automated count 5.1 x10E3/uL 1.4-7 .0 [facility] ([facility] Lymphocytes [#/volume] in Blood 1.6 x10E3/uL 0.7-3.1 [facility] ([facility] Eosinophils [#/volume] in Blood by Automated count 0.2 x10E3/uL 0.0-0 .4 [facility] ([facility] Monocytes [#/volume] in Blood 0.6 x10E3/uL 0.1-0.9 [facility] ([facility] Basophils [#/volume] in Blood by Automated count 0.1 x10E3/uL 0.0-0.2 [facility] ([facility] Immature granulocytes [#/volume] in Blood by Automated count 0.0 x10E3/uL 0.0-0.1 [facility] ([facility] Nucleated erythrocytes/100 leukocytes [Ratio] in Blood by Automated count Laboratory test result [facility] Immature granulocytes/100 leukocytes in Blood by Automated count 0 % [facility] ([facility] Morphology [Interpretation] in Blood Narrative Laboratory test result [facility] ([facility] ID Date Data Source [id number] 11/26/2019 01:00:00 PM EDT [facility] ([facility]) Name Value Range Interpretation Code Description Data Ngoc rce(s) Supporting Document(s) Coronavirus 2019 Nasopharygeal Laboratory test result [facility] ([facility]) This nucleic acid amplification test was developed and its performance characteristics determined by [employer]. Nucleic acid amplification tests include PCR and TMA. This test has not been FDA cleared or approved. This test has been authorized by FDA under an Emergency Use Authorization (EUA). This test is only authorized for the duration of time the declaration that circumstances exist justifying the authorization of the emergency use of in vitro diagnostic tests for detection of SARS-CoV-2 virus and/or diagnosis of COVID-19 infection under section 564(b)(1) of the Act, 21 U.S.C. 360bbb-3 (b) (1), unless the authorization is terminated or revoked sooner. When diagnostic testing is negative, the possibility of a false negative result should be considered in the context of a patient's recent exposures and the presence of clinical signs and symptoms consistent with COVID-19. An individual without symptoms of COVID-19 and who is not shedding SARS-CoV-2 virus would expect to have a negative (not detected) result in this assay. Performed at: RN - [facility] [id number] User Experience Lead: Carly Montes De Oca MD, Phone: [phone] Not Detected ID Date Data Source [id number] 11/26/2019 01:00:00 PM EDT [facility] Name Value Range Interpretation Code Description Data Ngoc rce(s) Supporting Document(s) SARS coronavirus 2 RNA [facility] This lab was ordered by [facility] and reported by [facility]. ID Date Data Source [id number] 11/25/2019 12:20:00 PM EDT [facility] ([facility]) Name Value Range Interpretation Code Description Data Ngoc rce(s) Supporting Document(s) Coronavirus 2019 Nasopharygeal Laboratory test result [facility] ([facility]) This nucleic acid amplification test was developed and its performance characteristics determined by [employer]. Nucleic acid amplification tests include PCR and TMA. This test has not been FDA cleared or approved. This test has been authorized by FDA under an Emergency Use Authorization (EUA). This test is only authorized for the duration of time the declaration that circumstances exist justifying the authorization of the emergency use of in vitro diagnostic tests for detection of SARS-CoV-2 virus and/or diagnosis of COVID-19 infection under section 564(b)(1) of the Act, 21 U.S.C. 360bbb-3 (b) (1), unless the authorization is terminated or revoked sooner. When diagnostic testing is negative, the possibility of a false negative result should be considered in the context of a patient's recent exposures and the presence of clinical signs and symptoms consistent with COVID-19. An individual without symptoms of COVID-19 and who is not shedding SARS-CoV-2 virus would expect to have a negative (not detected) result in this assay. Performed at: [address] [id number] User Experience Lead: Carly Montes De Oca MD, Phone: [phone] Not Detected ID Date Data Source [id number] 11/25/2019 12:20:00 PM EDT [facility] Name Value Range Interpretation Code Description Data Ngoc rce(s) Supporting Document(s) SARS coronavirus 2 RNA [facility] This lab was ordered by [facility] and reported by [facility]. ID Date Data Source [id number] 11/20/2019 10:13:00 AM EDT [facility] ([facility] Name Value Range Interpretation Code Description Data Ngoc rce(s) Supporting Document(s) WBC 7.6 10E3/uL 4.1-10.9 [facility] ([facility] NORMAL RANGES Age WBC RBC HGB HCT [...] HCT IS 5% LESS SOURCE FOR DATA: [employer] 1800 OPERATION MANUAL( AUTOMATED BLOOD COUNTS AND DIFF.) APPENDIX B-3 HCT 31.1 % 37.0-51.0 Below low normal [facility] ( [facility] NORMAL RANGES Age WBC RBC HGB HCT [...] HCT IS 5% LESS SOURCE FOR DATA: [employer] 1800 OPERATION MANUAL( AUTOMATED BLOOD COUNTS AND DIFF.) APPENDIX B-3 MCV 84.3 fL 80.0-97.0 [facility] ([facility] NORMAL RANGES Age WBC RBC HGB HCT [...] HCT IS 5% LESS SOURCE FOR DATA: [employer] 1800 OPERATION MANUAL( AUTOMATED BLOOD COUNTS AND DIFF.) APPENDIX B-3 RBC 3.69 10E6/uL 4.20-6.30 Below low normal [facility] ([facility] NORMAL RANGES Age WBC RBC HGB HCT [...] HCT IS 5% LESS SOURCE FOR DATA: [employer] 1800 OPERATION MANUAL( AUTOMATED BLOOD COUNTS AND DIFF.) APPENDIX B-3 HGB 9.4 g/dL 12.0-18.0 Below low normal [facility] ( [facility] NORMAL RANGES Age WBC RBC HGB HCT MCV PLT Adult M 4.1-10.9 4.20-6.30 12.0-18.0 37.0-51.0 80-97 140-440 Adult F 4.1-10.9 4.04-5.48 12.0-18.0 37.0-51.0 80- 140-440 0 -1 Yr 5.0-20.0 3.9-5.9 15-18 [...] HCT IS 5% LESS SOURCE FOR DATA: [employer] 1800 OPERATION MANUAL( AUTOMATED BLOOD COUNTS AND DIFF.) APPENDIX B-3 MCH 25.5 pg 26.0-32.0 Below low normal [facility] ( [facility] NORMAL RANGES Age WBC RBC HGB HCT [...] HCT IS 5% LESS SOURCE FOR DATA: [employer] 1800 OPERATION MANUAL( AUTOMATED BLOOD COUNTS AND DIFF.) APPENDIX B-3 PLT 321 10E3/uL 140-440 [facility] ([facility] NORMAL RANGES Age WBC RBC HGB HCT [...] HCT IS 5% LESS SOURCE FOR DATA: [employer] 1800 OPERATION MANUAL( AUTOMATED BLOOD COUNTS AND DIFF.) APPENDIX B-3 MCHC 30.2 g/dL 31.0-36.0 Below low normal [facility] ( [facility] NORMAL RANGES Age WBC RBC HGB HCT [...] HCT IS 5% LESS SOURCE FOR DATA: [employer] 1800 OPERATION MANUAL( AUTOMATED BLOOD COUNTS AND DIFF.) APPENDIX B-3 Lym% 19.0 % 10.0-58.5 [facility] ([facility] NORMAL RANGES Age WBC RBC HGB HCT [...] HCT IS 5% LESS SOURCE FOR DATA: [employer] 1800 OPERATION MANUAL( AUTOMATED BLOOD COUNTS AND DIFF.) APPENDIX B-3 RDW-CV 19.2 % 11.5-14.5 Above high normal [facility] ([facility] NORMAL RANGES Age WBC RBC HGB HCT [...] HCT IS 5% LESS SOURCE FOR DATA: [employer] 1800 OPERATION MANUAL( AUTOMATED BLOOD COUNTS AND DIFF.) APPENDIX B-3 Neut% 70.4 % 37.0-92.0 [facility] ([facility] NORMAL RANGES Age WBC RBC HGB HCT [...] HCT IS 5% LESS SOURCE FOR DATA: [employer] 1800 OPERATION MANUAL( AUTOMATED BLOOD COUNTS AND DIFF.) APPENDIX B-3 Lym# 1.4 10E3/uL 0.6-4.1 [facility] ([facility] NORMAL RANGES Age WBC RBC HGB HCT [...] HCT IS 5% LESS SOURCE FOR DATA: [employer] 1800 OPERATION MANUAL( AUTOMATED BLOOD COUNTS AND DIFF.) APPENDIX B-3 Neut# 5.4 % 2.0-7.8 [facility] ([facility] NORMAL RANGES Age WBC RBC HGB HCT [...] HCT IS 5% LESS SOURCE FOR DATA: [employer] 1800 OPERATION MANUAL( AUTOMATED BLOOD COUNTS AND DIFF.) APPENDIX B-3 MXD% 10.6 % 0.1-24.0 [facility] ([facility] NORMAL RANGES Age WBC RBC HGB HCT [...] HCT IS 5% LESS SOURCE FOR DATA: [employer] 1800 OPERATION MANUAL( AUTOMATED BLOOD COUNTS AND DIFF.) APPENDIX B-3 MXD# 0.8 10E3/uL 0.0-1.8 [facility] ([facility] NORMAL RANGES Age WBC RBC HGB HCT [...] HCT IS 5% LESS SOURCE FOR DATA: [employer] 1800 OPERATION MANUAL( AUTOMATED BLOOD COUNTS AND DIFF.) APPENDIX B-3 MPV 10.0 fL 9.0-13.0 [facility] ([facility] NORMAL RANGES Age WBC RBC HGB HCT [...] HCT IS 5% LESS SOURCE FOR DATA: [employer] 1800 OPERATION MANUAL( AUTOMATED BLOOD COUNTS AND DIFF.) APPENDIX B-3 ID Date Data Source [id number] 11/05/2019 10:43:00 AM EDT [facility] ([facility] Name Value Range Interpretation Code Description Data Nogc rce(s) Supporting Document(s) Laboratory test finding (navigational concept) Laboratory test result [facility] ([facility] ) Procedure Social History Code Duration Value Status Description Data Source(s ) Alcohol intake 12/05/2020 12:00:00 AM EDT Ex-drinker (finding) comp leted Ex- drinker (finding) [facility] Alcohol intake 11/23/2020 12:00:00 AM EDT Ex-drinker (finding) comp leted Ex- drinker (finding) [facility] Alcohol intake 11/18/2020 12:00:00 AM EDT Ex-drinker (finding) comp leted Ex- drinker (finding) [facility] Tobacco use and exposure 09/08/2020 12:00:00 AM EDT Never used co mpleted Never used [facility] Smoking 09/08/2020 12:00:00 AM EDT Former smoker completed Former smoker [facility] Alcohol intake 09/08/2020 12:00:00 AM EDT Lifetime non-drinker (finding) completed Lifetime non-drinker (finding) [facility] 02/02/2020 01:21:55 PM EST Ex-smoker (finding) complet ed Ex-smoker (finding) [facility] (Aftab Dolan [facility]) Vital Signs ID Date Data Source UNK Name Value Range Interpretation Code Description Data Source(s) Body height 149.9 cm 149.9 cm [facility] Body weight 83.915 kg 83.915 kg [facility] Body mass index (BMI) [Ratio] 37.37 kg/m2 37.37 kg/m2 [facility] Systolic blood pressure 175 mm[Hg] 175 mm[Hg] [facility] Diastolic blood pressure 77 mm[Hg] 77 mm[Hg] [facility] Heart rate 59 /min 59 /min [facility] Body temperature 36.72 Kamille 36.72 Kamille [facility] Respiratory rate 18 /min 18 /min [facility] Oxygen saturation in Arterial blood by Pulse oximetry 94 % 94 % [facility] Body height 149.9 cm 149.9 cm [facility] Body weight 84.3 kg 84.3 kg [facility] Body mass index (BMI) [Ratio] 37.54 kg/m2 37.54 kg/m2 [facility] Systolic blood pressure 122 mm[Hg] 122 mm[Hg] [facility] Diastolic blood pressure 76 mm[Hg] 76 mm[Hg] [facility] Heart rate 76 /min 76 /min [facility] Respiratory rate 19 /min 19 /min [facility] Body height 149.9 cm 149.9 cm [facility] Body weight 85.73 kg 85.73 kg [facility] Body mass index (BMI) [Ratio] 38.17 kg/m2 38.17 kg/m2 [facility] Oxygen saturation in Arterial blood by Pulse oximetry 93 % 93 % [facility] Systolic blood pressure 116 mm[Hg] 116 mm[Hg] M [facility] ([facility] Diastolic blood pressure 68 mm[Hg] 68 mm[Hg] [facility] ([facility] Body temperature 97.6 [degF] 97.6 [degF] [facility] ([facility] Heart rate 58 /min 58 /min [facility] ([facility] Respiratory rate 14 /min 14 /min [facility] ( [facility] Body height 59 [in_i] 59 [in_i] [facility] ([facility] 4'11" Body weight 188.00 [lb_av] 188.00 [lb_av] MEDEN T ([facility] [place] body weight 100 [lb_av] 100 [lb_av] [facility] T ([facility] Body mass index (BMI) [Ratio] 38.0 kg/m2 38.0 k g/m2 [facility] ([facility] Oxygen saturation in Arterial blood by Pulse oximetry 96 % 96 % [facility] ([facility] Systolic blood pressure 136 mm[Hg] 136 mm[Hg] [facility] Diastolic blood pressure 78 mm[Hg] 78 mm[Hg] [facility] Heart rate 62 /min 62 /min [facility] Body height 149.9 cm 149.9 cm [facility] Body weight 84.823 kg 84.823 kg [facility] Body mass index (BMI) [Ratio] 37.77 kg/m2 37.77 kg/m2 [facility] Oxygen saturation in Arterial blood by Pulse oximetry 95 % 95 % [facility] Diastolic blood pressure 76 mm[Hg] 76 mm[Hg] [facility] ([facility] Body temperature 97.7 [degF] 97.7 [degF] [facility] ([facility] Heart rate 58 /min 58 /min [facility] ([facility] Respiratory rate 14 /min 14 /min MEDE[facility] ( [facility] Body height 59 [in_i] 59 [in_i] [facility] ([facility] 4'11" Body weight 179.00 [lb_av] 179.00 [lb_av] [facility] T ([facility] [place] body weight 100 [lb_av] 100 [lb_av] [facility] T ([facility] Body mass index (BMI) [Ratio] 36.1 kg/m2 36.1 k g/m2 KHLOE ([facility] Systolic blood pressure 120 mm[Hg] 120 mm[Hg] M ED[facility] ([facility] Oxygen saturation in Arterial blood by Pulse oximetry 97 % 97 % [facility] ([facility] Body temperature 96.0 [degF] 96.0 [degF] [facility] ([facility]) Body mass index (BMI) [Ratio] 35.9 kg/m2 35.9 k g/m2 [facility] ([facility]) Body height 59 [in_i] 59 [in_i] [facility] ([facility]) 4'11" Body weight 178.00 [lb_av] 178.00 [lb_av] [facility] T ([facility]) Patient Treatment Plan of Care Planned Activity Planned Date Details Description Data Source (s) Metformin hydrochloride 850 MG Oral Tablet 11/25/2020 12:00:00 AM E DT [facility] normal saline flush 0.9 % injection 3 mL 11/23/2020 09:00:00 AM EDT [facility] normal saline flush 0.9 % injection 3 mL 11/23/2020 07:00:00 AM EDT [facility] normal saline flush 0.9 % injection 3 mL 11/23/2020 07:00:00 AM EDT [facility] Aspirin 81 MG Delayed Release Oral Tablet 11/23/2020 12:00:00 AM ED T [facility] ferrous sulfate 325 MG Oral Tablet 11/18/2020 12:00:00 AM EDT [facility] Nystatin 100 UNT/MG Topical Powder 11/13/2020 12:00:00 AM EDT [facility] clopidogrel 75 MG Oral Tablet 11/08/2020 12:00:00 AM EDT [facility] pantoprazole 40 MG Delayed Release Oral Tablet 09/15/2020 12:00:00 AM EDT [facility] [place]-3 Acid Ethyl Esters (ALF) 1000 MG Oral Capsule 021 12:00:00 AM EDT [facility] pantoprazole 40 MG Delayed Release Oral Tablet 03/08/2020 12:00:00 AM EST [facility] pantoprazole 40 MG Delayed Release Oral Tablet 02/26/2019 12:00:00 AM EST [facility] Metformin hydrochloride 850 MG Oral Tablet 01/03/2015 12:00:00 AM E [facility] Aspirin 325 MG Oral Tablet 01/03/2015 12:00:00 AM EST [facility]
--- OUTSIDE RECORDS SUMMARY | 2020-12-21 13:20 | CCD | Continuity of Care Document ---
Author Author Zara ORTIZ M.D. Organization Unknown Address [address] [place] [id number] Phone [phone] Problems Active Problems Provider Date Benign hypertension [...] by mouth twice a day as needed [id number] 60taLb Romero M.D. 11/04/[address] H[address] Part Take One Capsule By Mouth Every Day 90capLb Castillo M. D. 11/04/2014 Amlodipine Besylate 5mg Tablets Take One Tablet By Mouth Every Day 90taLb Romero M.D . 11/04/2014 Carvedilol 12.5mg Tablets Take One Tablet By Mouth Twice A Day 180taLb Romero M.D. 11/2014 Immunizations CPT Code Status Date Vaccine Lot # 40893 Given 01/15/2020 Influenza Virus Vaccine, Quadrivalent, Slit Virus, Im Use 3Y & Up [id number] 31276 Given 03/24/2019 Pneumococcal Immunization S0 [id number] 66746 Given 11/28/2018 Influenza Virus Vaccine, Quadrivalent, Slit Virus, Im Use 3Y & Up [id number] 81100 Given 01/29/2018 Influenza Virus Vaccine, Quadrivalent, Slit Virus, Im Use 3Y & Up [id number] 32075 Given 09/13/2015 Prevnar 13 Pneum o. Conj Ped. Vaccine 13 Valent (PCV13) For Im Use 42734 Given 06/14/2015 Zoster (Shingles) Vaccine 30360 Given 12/09/2014 Influenza Vaccin e (Fluzone) 3Yrs Of Age Or Older Medicare Plans [id number] Refused 12/27/2016 Influenza Virus Vaccine, Quadrivalent, Slit Virus, Im Use 3Y & Up Vital Signs Date Vital Result Comment 10/21/2020 10:19am BP Systolic 116 mmHg BP Diastolic 68 mmHg Body Temperature 97.6 F Heart Rate 58 /min Respiratory Rate 14 /min Height 59 inches 4'11" Weight 188.00 lb [place] Body Weight 100 lb BMI (Body Mass Index) 38.0 kg/m2 O2 % BldC Oximetry 96 % 01/15/2020 2:01pm BP Systolic 120 mmHg BP Diastolic 76 mmHg Body Temperature 97.7 F Heart Rate 58 /min Respiratory Rate 14 /min Height 59 inches 4'11" Weight 179.00 lb [place] Body Weight 100 lb BMI (Body Mass [...] eGFR 64 # Calc 2 eGFR Non-Afr. [place] 55 # Calc 3 Lipid Panel 10/21/2020 [...] HCT IS 5% LESS SOURCE FOR DATA: [employer] 1800 OPERATION MANUAL( AUTOMATED BLOOD COUNTS AND [...] <7.0 Procedures Date Code Description Status 10/21/2020 88184 Office/Outpatient Established Mo d MDM 30-39 Min Completed Medical Devices Description No Information Available Encounters Type Date Location Provider Dx Diagnosis Office Visit 10/21/2020 10:20a [place] [facility] Lb Ortiz M. D. 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 10/21/2020 I25.10 Atherosclerotic heart disease of [place] coronary artery with Lb Ortiz M.D. 10/21/2020 [...]
--- OUTSIDE RECORDS SUMMARY | 2020-12-21 13:20 | CCD | Continuity of Care Document ---
Author Author Zara ORTIZ M.D. Organization Unknown Address [address] [place] [id number] Phone [phone] Problems Active Problems Provider Date Benign hypertension [...] by mouth twice a day as needed [id number] 60taLb Romero M.D. 11/04/2014 Duloxetine HCL 60mg Caps DR Part Take One Capsule By Mouth Every Day 90capLb Castillo M. D. 11/04/2014 Amlodipine Besylate 5mg Tablets Take One Tablet By Mouth Every Day 90taLb Romero M.D . 11/04/2014 Carvedilol 12.5mg Tablets Take One Tablet By Mouth Twice A Day 180taLb Romero M.D. 11/2014 Immunizations CPT Code Status Date Vaccine Lot # 36822 Given 01/15/2020 Influenza Virus Vaccine, Quadrivalent, Slit Virus, Im Use 3Y & Up [id number] 25827 Given 03/24/2019 Pneumococcal Immunization S0 [id number] 36420 Given 11/28/2018 Influenza Virus Vaccine, Quadrivalent, Slit Virus, Im Use 3Y & Up [id number] 06261 Given 01/29/2018 Influenza Virus Vaccine, Quadrivalent, Slit Virus, Im Use 3Y & Up [id number] 86569 Given 09/13/2015 Prevnar 13 Pneum o. Conj Ped. Vaccine 13 Valent (PCV13) For Im Use 61188 Given 06/14/2015 Zoster (Shingles) Vaccine 97897 Given 12/09/2014 Influenza Vaccin e (Fluzone) 3Yrs Of Age Or Older Medicare Plans [id number] Refused 12/27/2016 Influenza Virus Vaccine, Quadrivalent, Slit Virus, Im Use 3Y & Up Vital Signs Date Vital Result Comment 10/21/2020 10:19am BP Systolic 116 mmHg BP Diastolic 68 mmHg Body Temperature 97.6 F Heart Rate 58 /min Respiratory Rate 14 /min Height 59 inches 4'11" Weight 188.00 lb [place] Body Weight 100 lb BMI (Body Mass Index) 38.0 kg/m2 O2 % BldC Oximetry 96 % 01/15/2020 2:01pm BP Systolic 120 mmHg BP Diastolic 76 mmHg Body Temperature 97.7 F Heart Rate 58 /min Respiratory Rate 14 /min Height 59 inches 4'11" Weight 179.00 lb [place] Body Weight 100 lb BMI (Body Mass [...] eGFR 64 # Calc 2 eGFR Non-Afr. [place] 55 # Calc 3 Lipid Panel 10/21/2020 [...] HCT IS 5% LESS SOURCE FOR DATA: [employer] 1800 OPERATION MANUAL( AUTOMATED BLOOD COUNTS AND [...] <7.0 Procedures Date Code Description Status 10/21/2020 33527 Office/Outpatient Established Mo d MDM 30-39 Min Completed Medical Devices Description No Information Available Encounters Type Date Location Provider Dx Diagnosis Office Visit 10/21/2020 10:20a [place] [facility] Lb Ortiz M. D. 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 10/21/2020 I25.10 Atherosclerotic heart disease of [place] coronary artery with Lb Ortiz M.D. 10/21/2020 [...]
[2020-12-21] MEDS ORDERED: LABETALOL 100MG/20ML VIAL IV STA (13:37)
[2020-12-21] MEDS ORDERED: METOCLOPRAMIDE INJ 10MG/2ML VIAL (J2765 PER 1) IV ONE (13:40)
--- NOTE | 2020-12-21 14:08 | REP ---
INDICATION: CVA - Nursing interventions must not delay CT. COMPARISON: None. TECHNIQUE: 5 mm contiguous transaxial sections were obtained from the skull base to the cerebral convexities. FINDINGS: The ventricles and sulci are consistent with the patient's age. 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 There is no mass effect. The deep cerebral white matter is consistent with the patient's age. There is no evidence of an acute intracranial hemorrhagic or non hemorrhagic event. The orbital and petrous structures, cerebellopontine angles, and posterior fossa are unremarkable. The sella turcica, cavernous, and paracavernous structures are essentially unremarkable. The visualized portions of the paranasal sinuses and mastoid air cells are clear. Images of the skull base show no gross abnormality. IMPRESSION: No evidence of acute intracranial pathology. Findings as described above. <Electronically signed by Yifan Cordoba > 12/21/20 [id number]
--- NOTE | 2020-12-21 14:14 | REP ---
INDICATION: CVA. COMPARISON: None. TECHNIQUE: Portable FINDINGS: The technique utilized in obtaining the radiograph has magnified the cardiac silhouette and accentuated the interstitial markings. There is cardiomegaly accentuated by technique. There is a 1.6 cm sized slightly irregular focal density in the right mid lung zone. There are no patchy opacities or pleural effusions. The osseous structures are within normal limits. IMPRESSION: Right lung nodule as described above. Contrast-enhanced CT examination of the chest is recommended. Neoplasm cannot be ruled out. <Electronically signed by Yifan Cordoba > 12/21/20 1504
[2020-12-21 14:21] LABS: BASO % 0.5 % (0.0-1.0); EOS # 0.1 10^3/uL (0.0-0.5); EOS % 1.6 % (0.0-3.0); HEMATOCRIT 34.8 % (36.0-47.0); HEMOGLOBIN 10.7 g/dl (12.0-15.5); LYMPH # 1.2 10^3/uL (1.5-5.0); MEAN CORPUSCULAR HEMOGLOBIN 26.2 pg (27.0-33.0); MEAN CORPUSCULAR HGB CONC 30.7 g/dl (32.0-36.5); MEAN CORPUSCULAR VOLUME 85.3 fl (80.0-96.0); MONO # 0.8 10^3/uL (0.0-0.8); MONO % 10.3 % (2.0-8.0); NEUTROPHILS # 5.7 10^3/uL (1.5-8.5); NEUTROPHILS % 72.3 % (36.0-66.0); PLATELET COUNT, AUTOMATED 301 10^3/uL (150-450); RED BLOOD COUNT 4.08 10^6/uL (4.00-5.40); WHITE BLOOD COUNT 7.9 10^3/uL (4.0-10.0)
[2020-12-21 14:33] LABS: INR 1.1; PROTHROMBIN TIME 14.7 SECONDS (12.7-14.5)
[2020-12-21 14:41] VITALS: BP 195/95
[2020-12-21 14:56] LABS: ALBUMIN 3.7 GM/DL (3.2-5.2); BILIRUBIN,TOTAL 0.4 MG/DL (0.2-1.0); CALCIUM LEVEL 9.7 MG/DL (8.8-10.2); CK-MB VALUE MASS 1.1 NG/ML (<3.6); CPK CREATINE PHOSPHOKINASE 80 U/L (26-192); CREATININE FOR GFR 1.28 MG/DL (0.55-1.30); GLOMERULAR FILTRATION RATE 43.3 (>39); MB/CK RELATIVE INDEX 1.38 (< OR =4); TOTAL PROTEIN 7.8 GM/DL (6.4-8.2); TROPONIN I < 0.02 NG/ML (< 0.10)
--- OUTSIDE RECORDS SUMMARY | 2020-12-21 15:06 | CCD ---
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 Name Role Phone Reza GAMA MD Unavailable [...] Unavailable Unavailable Reza GAMA MD Unavailable Unavailable Rzea GAMA MD Unavailable Unavailable Reza GAMA MD [...] Unavailable NATAN, H MADELIN MD Unavailable Unavailable NATNA, H MADELIN MD Unavailable Unavailable NATAN, H [...] Unavailable Noyola, L Chante PA Unavailable Unavailable Stephens, V SAM PA-C Unavailable Unavailable Jonathan, V SAM PA-C Unavailable Unavailable Stephens, V SAM PA-C Unavailable Unavailable Stephens, V SAM PA-C Unavailable Unavailable Stephens, V SAM PA-C Unavailable Unavailable Jonathan, V SAM PA-C Unavailable Unavailable Jonathan, V SAM PA-C Unavailable Unavailable Stephens, V SAM PA-C Unavailable Unavailable Jonathan, V SAM PA-C Unavailable Unavailable Jonathan, V SAM PA-C Unavailable Unavailable Stephens, V SAM PA-C Unavailable Unavailable Stephens, V SAM PA-C Unavailable Unavailable Stephens, V SAM PA-C Unavailable Unavailable Stephens, V SAM PA-C Unavailable Unavailable DONNELL, A [...] Unavailable Unavailable Yamilex Orozco MD Unavailable Unavailable Yamielx Orozco MD Unavailable Unavailable Yamilex Orozco MD [...] is protected by Article 27-F of the [facility] Public Health law. If you continue you may have access to information: Regarding HIV / AIDS; Provided by facilities licensed or operated by the [facility] Office of Mental Health; or Provided by the [facility] Office for People With Developmental Disabilities. If such information is present, then the following [facility] mandated warning applies: This information has been [...] law may result in a fine or skilled nursing sentence or both. A general authorization for the release of medical or other information is NOT sufficient authorization for further disc losure. Allergies and Adverse Reactions Type Description Substance Reaction Status Data Source(s ) Allergy to substance No Known Allergies No known allergies (situation ) DITTMER (Aftab Dolan MD [facility]) Family History Family Member Name Family Member [...] Outpatient Attender: Chante LOGAN-SJP.NISH 12:00:00 AM EDT [facility] Outpatient Attender: SAM MOYA.NISH-NITA.NISH 12/2020 08:53:52 AM EDT - 12/05/2020 09:49:08 AM EDT [facility] Outpatient Attender: Cassi Diaz MDA dmitter: Cassi Diaz MDReferrer: Yamilex Orozco MD ES1-SJ.CVAU 11/23/2020 06:00:00 AM EDT - 11/23/2020 11:10:00 AM EDT [facility] Patient discharged. Outpatient Attender: Chante DELUNANISH-SJP.NISH 12:00:00 AM EDT - 11/18/2020 04:15:39 PM EDT [facility] Outpatient Referrer: Chante DELUNANISH-SJP.NISH 01:18:47 PM EDT [facility] Outpatient Referrer: Chante DELUNANISH-SJP.NISH 09/2020 08:22:00 AM EDT [facility] Outpatient Attender: MADELIN GAMA MD [facility] 10:20:00 AM EDT [facility] ([facility] Outpatient Attender: Chante DELUNANISH-SJP.NISH 12:00:00 AM EDT - 09/08/2020 02:19:38 PM EDT [facility] <td ID="encounterTypeDescriptionID0">1 Y ear Follow-Up</td><td>Gautam Oscar DO</td><td>Aftab Monroy MD [facility]</td><td>02/02/2020</td><td>12:19PM</td><td>12:58PM</td><td><content ID="encounterDiagnosisID0-0">Dry Eye Syndrome</content>, <content ID="encounterDiagnosisID0-1">Pseudophakia</content>, <content ID="encounterDiagnosisID0-2">Taking Medication For Diabetes Long-term Use of Oral Hypoglycemics</content>, <content ID="encounterDiagnosisID0-3">Vitreous Disorders Degeneration</content>, <content ID="encounterDiagnosisID0-4">Diabetes Mellitus Type 2 Without Complication</content>, <content ID="encounterDiagnosisID0-5">Astigmatism - Regular Bilateral</content></td>Outpatient Attender: GAUTAM Fraga MD [facility] 02/02/2020 12:19:00 PM EST - 02/02/2020 12:58:00 PM ES T Taking Medication For Diabetes Long-term Use of Oral HypoglycemicsAstigmatism - Regular BilateralDiabetes Mellitus Type 2 Without ComplicationVitreous Disorders DegenerationPseudophakiaDry Eye Syndrome ANUM (Aftab Dolan MD [facility]) Taking Medication For Diabetes Long-term Use of Oral Hypoglycemics Astigmatism - Regular Bilateral Diabetes Mellitus Type 2 Without Complic ation Vitreous Disorders Degeneration Pseudophakia Dry Eye Syndrome Outpatient Attender: MADELIN GAMA MD [facility] 12:15:00 PM EST [facility] ([facility] Immunizations Vaccine Date Status Description Data Source(s) COVID-19 VACCINE Moderna 05/25/2020 12:00:00 AM EDT completed NYSIIS Vaccine Series Complete: YESThis Data wa s Submitted to [facility] [employer]. COVID-19 VACCINE Moderna 04/27/2020 12:00:00 AM EST completed [place]SIIS Vaccine Series Complete: NOThis Data was Submitted to [facility] [employer]. New in 2012. IIV4 01/15/2020 01:01:00 PM [...] 2 (two) times a day with meals [facility] normal saline flush 0.9 % injection 3 mL 43753-359-38 11/23/2020 09:00:00 AM EDT 3 mL Intravenous active 3 mL , Intravenous, PROTOCOL, First dose on Sat11/23/20 at 0900, Pre-op
flush per protocol, D/C Main IV fluid if appropriate
[facility] Medication administered onsite iopamidol (ISOVUE-370) 76 % [id number] 11/23/2020 08:13:56 AM EDT active As needed, Starting on Sat11/23/20 at 0813, Intra-Proc edure [facility] Medication administered onsite 1 ML heparin sodium, porcine 1000 UNT/ML Injection hep jorge (porcine) injection heparin (porcine) injection 11/23/2020 08:00:51 AM EDT active As needed, Starting on Sat11/23/20 at 0800, Intra-Procedure [facility] Medication administered onsite 4 ML Verapamil hydrochloride 2.5 MG/ML Injection verap karthik (ISOPTIN) injection verapamil (ISOPTIN) injection 11/23/2020 08:00:44 AM EDT active As needed, Starting on Sat11/23/20 at 0800, Intra-Procedure [facility] Medication administered onsite lidocaine 1 % injection 8671-4463-32 11/23/2020 07:57:38 AM EDT active As needed, Starting on Sat at 0757, Intra-Procedure [facility] Medication administered onsite fentaNYL Citrate (PF) (SUBLIMAZE) injection 1539-6784-52 11/23/2020 07:56:18 AM EDT active As neede d, Starting on Sat11/23/20 at 0756, Intra-Procedure [facility] Medication administered onsite 2 ML Midazolam 1 MG/ML Injection midazolam (VERSED) in jection midazolam (VERSED) injection 11/23/2020 07:56:10 AM EDT active As needed, Starting on Sat11/23/20 at 0756, Intra-Procedure [facility] Medication administered onsite normal saline flush 0.9 % injection 3 mL 77479-337-50 11/23/2020 07:00:00 AM EDT 3 mL Intravenous active 3 mL , Intravenous, Every 8 hours (scheduled), First dose on Sat11/23/20 at 0700, Pre-op
Rapid push positive pressure flushing shall be performed with a 10 cc normal saline syringe to check the PATENCY of a PIV site prior to any infusion therapy initiation unless resistance is met.
[facility] Medication administered onsite normal saline flush 0.9 % injection 3 mL [id number] 11/23/2020 07:00:00 AM EDT 3 mL Intravenous active 3 mL , Intravenous, Every 8 hours (scheduled), First dose on Sat11/23/20 at 0700, Pre-op
Rapid push positive pressure flushing shall be performed with a 10 cc normal saline syringe to check the PATENCY of a PIV site prior to any infusion therapy initiation unless resistance is met.
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
Start two hours prior to scheduled start time
[facility] Medication administered onsite Aspirin 325 MG [...] home. Max of 1 dose per day.
[facility] Medication administered onsite Aspirin 81 MG Delayed Release Oral Tablet aspirin EC 8 1 MG EC tablet aspirin EC 81 MG EC tablet 11/23/2020 12:00:00 AM EDT 81 mg Oral ac tive Take 1 tablet (81 mg total) by mouth daily [facility] ferrous sulfate 325 MG Oral Tablet ferrous sulfate 325 (65 FE) MG tablet ferrous sulfate 325 (65 FE) MG tablet 11/18/2020 12:00:00 AM EDT 325 mg Ora l active Iron deficiency anemia, unspecified iron deficiency anemia t ype Take 1 tablet (325 mg total) by mouth every other day [facility] Iron deficiency anemia, unspecified iron deficiency anemia type Nystatin 100 UNT/MG Topical Powder nystatin (MYCOSTATI N) powder nystatin (MYCOSTATIN) powder 11/13/2020 12:00:00 AM EDT act nancy [facility] clopidogrel 75 MG Oral Tablet clopidogrel (PLAVIX) 75 MG tablet clopidogrel (PLAVIX) 75 MG tablet 11/08/2020 12:00:00 AM EDT aborted TAKE ALL 4 TABLETS BY MOUTH THE NIGHT BEFORE CARDIAC CATHETERIZATION FOR 1 DOSE [facility] 75 mg 11/08/2020 12:00:00 AM EDT [...] 10/27/2020 12:00:00 AM EDT ORAL active [facility] ([facility] 5-325 mg 10/21/2020 12:00:00 AM EDT tablet 14 TAKE ONE TABLET BY MOUTH TWICE A DAY NEEDED MAXIMUM DAILY DOSE = 2 TAKE ONE TABLET BY MOUTH TWICE A DAY NEEDED MAXIMUM DAILY DOSE = 2 SOLD: 10/27/2020 [facility] Nystatin 10/21/2020 12:00:00 AM EDT active MEDENT ([facility] Nystatin 100 UNT/MG Topical Powder [...] TAKE ONE TABLET BY MOUTH JENNIFER ANTON [facility] atorvastatin 20 MG Oral Tablet ATORVASTATIN CALCIUM 07/30/2020 1 2:00:00 AM EDT tablet 90 TAKE ONE TABLET BY MOUTH EVERY D AY TAKE ONE TABLET BY MOUTH EVERY DAY SOLD: 08/03/2020 [facility] Raymond-3 Acid Ethyl Esters (LONG-TERM) 1000 MG Oral Capsule omega-3 acid ethyl esters (LOVAZA) 1 g capsule omega-3 acid ethyl esters (LOVAZA) 1 g capsule 021 12:00:00 AM EDT active [facility] carvedilol 12.5 MG Oral Tablet CARVEDILOL 05/12/2020 12:00:00 AM EDT tablet 180 TAKE ONE TABLET BY MOUTH TWICE A DAY TAKE ONE TABLET BY MOUT H TWICE A DAY SOLD: 06/05/2020 [facility] 5 mg 05/12/2020 12:00:00 AM EDT tablet 90 TAKE ONE TABLET BY MOUTH EVERY DAY TAKE ONE TABLET BY MOUTH EVERY DAY SOLD: 06/05/2020 [facility] carvedilol 12.5 MG Oral Tablet CARVEDILOL 05/12/2020 12:00:00 AM EDT tablet 180 TAKE ONE TABLET BY MOUTH TWICE A DAY TAKE ONE TABLET BY MOUT H TWICE A DAY SOLD: 10/11/2020 [facility] atorvastatin 20 MG Oral Tablet ATORVASTATIN CALCIUM [...] THREE TIMES A DAY SOLD: 08/03/2020 [facility] pantoprazole 40 MG Delayed Release Oral Tablet PANTOPRAZOLE SODIUM 03/09/2020 12:00:00 AM EST tablet,delayed release (DR/EC) 90 T WTASON ONE TABLET BY MOUTH EVERY DAY TAKE ONE TABLET BY MOUTH EVERY DAY SOLD: 08/03/2020 [facility] pantoprazole 40 MG Delayed Release Oral Tablet PANTOPRAZOLE SODIUM 03/09/2020 12:00:00 AM EST tablet,delayed release (DR/EC) 90 T WATSON ONE TABLET BY MOUTH EVERY DAY TAKE ONE TABLET BY MOUTH EVERY DAY SOLD: 03/28/2020 [facility] pantoprazole 40 MG Delayed Release Oral Tablet pantoprazole (PROTONIX) 40 MG tablet pantoprazole (PROTONIX) 40 MG tablet 03/08/2020 12:00:00 AM EST active TAKE ONE TABLET BY MOUTH JENNIFER ANTON [facility] Metformin hydrochloride 850 MG Oral Tablet [...] Hydrocodone-Acetaminophen 11/23/2019 12:00:00 AM EDT active [facility] ([facility] ) 325 mg (65 mg [...] tablet 02/26/2019 12:00:00 AM EST aborted nightly [facility] GNP Vitamin B-12 500 MCG Oral Tablet GNP Vitamin B-12 500 MC G Oral Tablet 12/04/2018 12:00:00 AM EDT 1 aborted GNP Vitamin B-12 ANUM (Aftab Dolan MD [facility]) Raymond 3 Oral Capsule Raymond 3 Oral Capsule 12/04/2018 12:00:00 AM EDT 1 aborted Raymond 3 ANUM (Aftab Dolan MD [facility]) sitagliptin 100 MG Oral Tablet [Januvia] Januvia 100 M G Oral Tablet Januvia 100 MG Oral Tablet 12/04/2018 12:00:00 AM EDT 1 abo rted sitagliptin 100 MG Oral Tablet [Januvia] ANUM (Aftab Dolan MD [facility]) Metformin hydrochloride 850 MG Oral Tablet metFORMIN ( GLUCOPHAGE) 850 MG tablet metFORMIN (GLUCOPHAGE) 850 MG tablet 01/03/2015 12:00:00 AM EST 850 m g Oral aborted Take 850 mg by mouth 2 (two) times a day with meals [facility] Aspirin 325 MG Oral Tablet aspirin 325 MG tablet aspirin 325 MG tablet 01/03/2015 12:00:00 AM EST aborted aspirin 325 mg tablet Take 1 tablet every day by oral route. [facility] Insurance Providers Payer name Policy type / Coverage type Policy ID Covered green party ID Covered green party's relationship to oro Policy Oro Plan Information UHC UNITED MEDICARE COMPLETE G [id number] Self [id number] [facility] ([facility]) Commercial [id number] Self [id number] [facility] ([facility]) Commercial [id number] Self [id number] [facility] ([facility]) Commercial [id number] Self [id number] [facility] ([facility]) Commercial [id number] Self [id number] [facility] ([facility]) Commercial [id number] Self [id number] [facility] Commercial [id number] Self [id number] [facility] Commercial [id number] Self [id number] [facility] Commercial [id number] Self [id number] [facility] Commercial [id number] Self [id number] [employer] MEDICARE [id number] SP MEBSN SSQ UNITED [id number] Self [id number] [facility] MEDICARE [id number] Maddy [id number] [facility] MEDICARE [id number] Unitedhealth[employer] Medicare Commercial [id number] Self AETNA MEDICARE O MEBSNSSQ [id number] S MEBSN SSQ AETNA MEDICARE MEBSNSSQ SP MEBSN SSQ AETNA MEDICARE MEBSNSSQ SP MEBSN SSQ [employer] [facility] MEDICARE O/P [id number] 18 [id number] [employer] [facility] MEDICARE -O/P [id number] 18 [id number] MEDICARE COMPLETE [id number] SP [id number] Problems, Conditions, and Diagnoses Code Display Name Description Problem Type Effective Dates Data Source(s) I10 Essential (primary) hypertension Essential (primary) h ypertension Diagnosis 12/13/2020 08:12:02 AM EDT [facility] G47.33 Obstructive sleep apnea (adult) (pediatr ic) Obstructive sleep apnea (adult) (pediatr Diagnosis 12/13/2020 08:12:02 AM EDT [facility] I63.9 Cerebral infarction, unspecified Cerebral infarc tion, unspecified Diagnosis 12/13/2020 08:12:02 AM EDT [facility] D50.9 Iron deficiency anemia, unspecified Iron deficie ncy anemia, unspecified Diagnosis 12/13/2020 08:12:02 AM EDT [facility] E66.01 Morbid (severe) obesity due to excess ca lories Morbid (severe) obesity due to excess ca Diagnosis 12/13/2020 08:12:02 AM EDT [facility] I25.10 Atherosclerotic heart diseas e of [place] coronary artery without angina pectoris Atherosclerotic heart disease of [place] Diagnosis 12/13/2020 08:12:02 AM EDT [facility] E78.00 Pure hypercholesterolemia, unspecified P ure hypercholesterolemia, unspecified Diagnosis 12/13/2020 08:12:02 AM EDT [facility] R06.02 Shortness of breath Shortness of breath Diagnosis 1 08:12:02 AM EDT [facility] J42 Unspecified chronic bronchitis Unspecified chronic bro nchitis Diagnosis 12/05/2020 08:53:52 AM EDT [facility] D64.9 Anemia, unspecified Anemia, unspecified Diagnosis 0 11/23/2020 06:00:00 AM EDT [facility] 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 Atherosclerotic heart disease of [place] Diagnosis 11/18/2020 03:19:48 PM EDT [facility] E11.9 Type 2 diabetes mellitus without complic ations Type 2 diabetes mellitus without complic Diagnosis 11/18/2020 03:19:48 PM EDT [facility] D50.9 Fe deficiency anemia Fe deficiency anemia [id number] 11/18/2020 12:00:00 AM EDT [facility] D64.9 Normocytic anemia Normocytic anemia [id number] 11/18/2020 12:00:00 AM EDT [facility] Surgeries/Procedures Procedure Description Date Indications Data Source(s) CARDIAC CATHETERIZATION <td>CARDIAC CATHETERIZATION</td><td>Routine</td><td>11/23/2020 8:14 AM EDT</td><td> Coronary artery disease involving [place] coronary artery of [place] heart without angina pectoris Normocytic anemia Cerebrovascular accident (CVA), unspecified mechanism Type 2 diabetes mellitus without complication, without long-term current use of insulin Shortness of breath Hypercholesterolemia Hypertension, essential Obesity, morbid</td><td> </td> 11/23/2020 08:14:16 AM EDT Obesity, morbidHypertension, essentialHy percholesterolemiaShortness of breathType 2 diabetes mellitus without complication, without long-term current use of insulinCerebrovascular accident (CVA), unspecified mechanismNormocytic anemiaCoronary artery disease involving [place] coronary artery of [place] heart without angina pectoris [facility] Obesity, morbid Hypertension, essential Hypercholesterolemia Shortness of breath Type 2 diabetes mellitus without complic ation, without long-term current use of insulin Cerebrovascular accident (CVA), unspecif ied mechanism Normocytic anemia Coronary artery disease involving [place] coronary artery of [place] heart without angina pectoris ECG ROUTINE ECG W/LEAST 12 LDS TRCG ONLY W/O I&R <td>E CG 12- LEAD</td><td>Routine</td><td>11/23/2020 6:39 AM EDT</td><td></td><td></td> 11/23/2020 06:39:47 AM EDT [facility] ECG ROUTINE ECG W/LEAST 12 LDS W/I&R <td>POCT AMB EKG</td><td>Routine</td><td>11/18/2020 4:28 PM EDT</td><td> Coronary artery disease involving [place] coronary artery of [place] heart without angina pectoris</td><td> </td> 11/18/2020 04:28:00 PM EDT Coronary artery disease involving [place] coronary artery of [place] heart without angina pectoris [facility] Coronary artery disease involving [place] coronary artery of [place] heart without angina pectoris OFFICE OUTPATIENT VISIT 25 MINUTES 10/21/2020 12:00:00 AM EDT [facility] ([facility] POCT AMB EKG <td>POCT AMB EKG</td><td>Rou sandi</td><td>09/08/2020 1:28 PM EDT</td><td> Coronary artery disease involving [place] coronary artery of [place] heart without angina pectoris</td><td> </td> 09/08/2020 01:28:00 PM EDT Coronary artery disease involving [place] coronary artery of [place] heart without angina pectoris [facility] Coronary artery disease involving [place] coronary artery of [place] heart without angina pectoris Extracapsular extraction of lens (procedure) History o f extracapsular cataract extraction PCIOL OU 02/02/2020 12:00:00 AM EST ANUM (Vincenzo Dolan MD [facility]) BLOOD COUNT COMPLETE AUTO&AUTO DIFRNTL WBC COUNT <td>C BC AND DIFFERENTIAL</td><td>Routine</td><td>01/22/2020</td><td></td><td> </td> 01/22/2020 12:00:00 AM EST [facility] HEMOGLOBIN GLYCOSYLATED A1C <td>HEMOGLOBIN A1C</td><td>Routine</td><td>01/22/2020</td><td></td><td> </td> 01/22/2020 12:00:00 AM EST [facility] HEPATIC FUNCTION PANEL <td>HEPATIC FUNCTION PANEL</td><td>Routine</td><td>01/22/2020</td><td></td><td> </td> 01/22/2020 12:00:00 AM EST [facility] LIPID PANEL <td>LIPID PANEL</td><td>Rout ine</td><td>01/22/2020</td><td></td><td> </td> 01/22/2020 12:00:00 AM EST [facility] BASIC METABOLIC PANEL CALCIUM TOTAL <td>BASIC METABOLI C PANEL</td><td>Routine</td><td>01/22/2020</td><td></td><td> </td> 01/22/2020 12:00:00 AM EST [facility] TENDON SHEATH INCISION 12/01/2019 12:00:00 AM EDT [facility] ([facility]) Results ID Date Data Source [id number] 11/23/2020 08:33:43 AM EDT [facility] Name Value Range Interpretation Code Description Data Ngoc rce(s) Supporting Document(s) &PDF [facility] [id number] oRX [file] [id number] ID Date Data Source [id number] 11/23/2020 08:33:33 AM EDT [facility] INFORMATIONPatient MRN Name Date of Age Gend*PT [id number] Zara Matthews 1945 75 years F HOPPT Location Admission Date/Time Visit ID Attending Provider11/23/20 0600 --- Cassi Diaz MD([id number]) EPI ID CSN Admitting Provider [id number] Cassi Diaz MD([id number])Pre-Procedure History and Physical:The history and physical were [...] rce(s) Supporting Document(s) ID Date Data Source [id number] 11/23/2020 06:52:38 AM EDT [facility] Name Value Range Interpretation Code Description Data Ngoc rce(s) Supporting Document(s) EKG [facility] [id number] [file] [id number] ID Date Data Source [id number] 11/19/2020 09:45:00 AM EDT [facility] ([facility] Name Value Range Interpretation Code Description Data Ngoc rce(s) Supporting Document(s) Laboratory test finding (navigational concept) Laboratory test result [facility] ([facility] ASSAY INFORMATION: Real Time RT-PCR NOTE: The COVID-19 assay has been cleared by the U.S. Food and Drug Administration under the Emergency Use Authorization (EUA). [facility] and [facility] are designated as high complexity laboratories by the Clinical Laboratory Improvement Amendments of 1988(CLIA) and are qualified to perform this test. Not Detected ID Date Data Source [id number] 10/21/2020 10:42:00 AM EDT [facility] ([facility] Name Value Range Interpretation Code Description Data Ngoc rce(s) Supporting Document(s) WBC 7.6 10E3/uL 4.1-10.9 [facility] ([facility] NORMAL RANGES Age [...] HCT IS 5% LESS SOURCE FOR DATA: [employer] 1800 OPERATION MANUAL( AUTOMATED BLOOD COUNTS AND [...] HCT IS 5% LESS SOURCE FOR DATA: [employer] 1800 OPERATION MANUAL( AUTOMATED BLOOD COUNTS AND [...] HCT IS 5% LESS SOURCE FOR DATA: [employer] 1800 OPERATION MANUAL( AUTOMATED BLOOD COUNTS AND [...] HCT IS 5% LESS SOURCE FOR DATA: [employer] 1800 OPERATION MANUAL( AUTOMATED BLOOD COUNTS AND [...] HCT IS 5% LESS SOURCE FOR DATA: [employer] 1800 OPERATION MANUAL( AUTOMATED BLOOD COUNTS AND [...] 2-19 YEARS EXCLUSIVE. MCHC 31.2 g/dL 31.0-36.0 [facility] NORMAL [...] HCT IS 5% LESS SOURCE FOR DATA: [employer] 1800 OPERATION MANUAL( AUTOMATED BLOOD COUNTS AND [...] RDW-CV 15.9 % 11.5-14.5 Above high normal [facility] ([facility] NORMAL RANGES [...] HCT IS 5% LESS SOURCE FOR DATA: [employer] 1800 OPERATION MANUAL( AUTOMATED BLOOD COUNTS AND [...] 2-19 YEARS EXCLUSIVE. Lym% 20.1 % 10.0-58.5 [facility] ([facility] NORMAL RANGES Age [...] HCT IS 5% LESS SOURCE FOR DATA: [employer] 1800 OPERATION MANUAL( AUTOMATED BLOOD COUNTS AND [...] 2-19 YEARS EXCLUSIVE. PLT 240 10E3/uL 140-440 [employer] ([facility] NORMAL RANGES Age WBC RBC HGB [...] HCT IS 5% LESS SOURCE FOR DATA: [employer] 1800 OPERATION MANUAL( AUTOMATED BLOOD COUNTS AND [...] 2-19 YEARS EXCLUSIVE. Lym# 1.5 10E3/uL 0.6-4.1 [facility] ([facility] NORMAL RANGES Age [...] HCT IS 5% LESS SOURCE FOR DATA: [employer] 1800 OPERATION MANUAL( AUTOMATED BLOOD COUNTS AND [...] 2-19 YEARS EXCLUSIVE. MXD% 12.0 % 0.1-24.0 [facility] ([facility] [...] HCT IS 5% LESS SOURCE FOR DATA: [employer] 1800 OPERATION MANUAL( AUTOMATED BLOOD COUNTS AND [...] 2-19 YEARS EXCLUSIVE. Neut% 67.9 % 37.0-92.0 [facility] ([facility] NORMAL [...] HCT IS 5% LESS SOURCE FOR DATA: [employer] 1800 OPERATION MANUAL( AUTOMATED BLOOD COUNTS AND [...] 2-19 YEARS EXCLUSIVE. MXD# 0.9 10E3/uL 0.0-1.8 [facility] ([facility] NORMAL RANGES Age [...] HCT IS 5% LESS SOURCE FOR DATA: [employer] 1800 OPERATION MANUAL( AUTOMATED BLOOD COUNTS AND [...] 2-19 YEARS EXCLUSIVE. Neut# 5.2 % 2.0-7.8 [facility] ([facility] NORMAL RANGES Age WBC [...] HCT IS 5% LESS SOURCE FOR DATA: [employer] 1800 OPERATION MANUAL( AUTOMATED BLOOD COUNTS AND [...] 2-19 YEARS EXCLUSIVE. MPV 10.8 fL 9.0-13.0 [facility] ([facility] [...] HCT IS 5% LESS SOURCE FOR DATA: [employer] 1800 OPERATION MANUAL( AUTOMATED BLOOD COUNTS AND [...] 2-19 YEARS EXCLUSIVE. ID Date Data Source [id number] 10/21/2020 10:42:00 AM EDT [facility] ([facility] [...] HCT IS 5% LESS SOURCE FOR DATA: [employer] 1800 OPERATION MANUAL( AUTOMATED BLOOD COUNTS AND [...] HCT IS 5% LESS SOURCE FOR DATA: [employer] 1800 OPERATION MANUAL( AUTOMATED BLOOD COUNTS AND [...] 2-19 YEARS EXCLUSIVE. Chol 124 mg/dL 0-200 [facility] ([facility] NORMAL [...] HCT IS 5% LESS SOURCE FOR DATA: [employer] 1800 OPERATION MANUAL( AUTOMATED BLOOD COUNTS AND [...] HCT IS 5% LESS SOURCE FOR DATA: [employer] 1800 OPERATION MANUAL( AUTOMATED BLOOD COUNTS AND [...] 2-19 YEARS EXCLUSIVE. Cho/HDL Ratio 1.9 CALC [employer] ([facility] NORMAL RANGES Age WBC RBC HGB [...] HCT IS 5% LESS SOURCE FOR DATA: [employer] 1800 OPERATION MANUAL( AUTOMATED BLOOD COUNTS AND [...] 2-19 YEARS EXCLUSIVE. ID Date Data Source [id number] 10/21/2020 10:42:00 AM EDT [facility] ([facility] Name Value Range Interpretation Code Description Data Ngoc rce(s) Supporting Document(s) Glu 130 mg/dL 70-110 Above high normal [facility] ([facility] NORMAL RANGES Age [...] HCT IS 5% LESS SOURCE FOR DATA: [employer] 1800 OPERATION MANUAL( AUTOMATED BLOOD COUNTS AND [...] 2-19 YEARS EXCLUSIVE. BUN 21 mg/dL 8-23 [facility] ([facility] NORMAL RANGES Age WBC [...] HCT IS 5% LESS SOURCE FOR DATA: [employer] 1800 OPERATION MANUAL( AUTOMATED BLOOD COUNTS AND [...] 2-19 YEARS EXCLUSIVE. BUN/Creatinine Ratio 20.2 CALC [facility] ([facility] NORMAL RANGES Age WBC [...] HCT IS 5% LESS SOURCE FOR DATA: [employer] 1800 OPERATION MANUAL( AUTOMATED BLOOD COUNTS AND [...] HCT IS 5% LESS SOURCE FOR DATA: [employer] 1800 OPERATION MANUAL( AUTOMATED BLOOD COUNTS AND [...] 2-19 YEARS EXCLUSIVE. Na 136 mmol/L 136-145 [facility] ([facility] NORMAL RANGES Age [...] HCT IS 5% LESS SOURCE FOR DATA: [employer] 1800 OPERATION MANUAL( AUTOMATED BLOOD COUNTS AND [...] 2-19 YEARS EXCLUSIVE. K 5.0 mmol/L 3.5-5.1 [facility] ([facility] NORMAL RANGES Age [...] HCT IS 5% LESS SOURCE FOR DATA: [employer] 1800 OPERATION MANUAL( AUTOMATED BLOOD COUNTS AND [...] 2-19 YEARS EXCLUSIVE. CL 103.5 mmol/L 98.0-107.0 [facility] ([facility] NORMAL RANGES Age WBC RBC [...] HCT IS 5% LESS SOURCE FOR DATA: [employer] 1800 OPERATION MANUAL( AUTOMATED BLOOD COUNTS AND [...] HCT IS 5% LESS SOURCE FOR DATA: [employer] 1800 OPERATION MANUAL( AUTOMATED BLOOD COUNTS [...] 2-19 YEARS EXCLUSIVE. Alb 4.2 g/dL 3.4-4.8 [facility] ([facility] NORMAL [...] HCT IS 5% LESS SOURCE FOR DATA: [employer] 1800 OPERATION MANUAL( AUTOMATED BLOOD COUNTS AND [...] HCT IS 5% LESS SOURCE FOR DATA: [employer] 1800 OPERATION MANUAL( AUTOMATED BLOOD COUNTS AND [...] 2-19 YEARS EXCLUSIVE. TP 7.1 g/dL 6.6-8.7 [facility] ([facility] NORMAL [...] HCT IS 5% LESS SOURCE FOR DATA: [employer] 1800 OPERATION MANUAL( AUTOMATED BLOOD COUNTS AND [...] HCT IS 5% LESS SOURCE FOR DATA: [employer] 1800 OPERATION MANUAL( AUTOMATED BLOOD COUNTS AND [...] HCT IS 5% LESS SOURCE FOR DATA: [employer] 1800 OPERATION MANUAL( AUTOMATED BLOOD COUNTS AND [...] 2-19 YEARS EXCLUSIVE. Alp 88.0 U/L 35-129 [facility] ([facility] NORMAL [...] HCT IS 5% LESS SOURCE FOR DATA: [employer] 1800 OPERATION MANUAL( AUTOMATED BLOOD COUNTS [...] YEARS EXCLUSIVE. Alt (SGPT) 7 U/L 0-41 [facility] ([facility] NORMAL RANGES [...] HCT IS 5% LESS SOURCE FOR DATA: [employer] 1800 OPERATION MANUAL( AUTOMATED BLOOD COUNTS AND [...] YEARS EXCLUSIVE. Ast (Sgot) 10 U/L 0-40 [facility] ([facility] NORMAL RANGES Age [...] HCT IS 5% LESS SOURCE FOR DATA: [employer] 1800 OPERATION MANUAL( AUTOMATED BLOOD COUNTS AND [...] 2-19 YEARS EXCLUSIVE. Tbili 0.20 mg/dL 0.0-1.2 [facility] NORMAL RANGES Age WBC RBC [...] HCT IS 5% LESS SOURCE FOR DATA: [employer] 1800 OPERATION MANUAL( AUTOMATED BLOOD COUNTS AND [...] HCT IS 5% LESS SOURCE FOR DATA: [employer] 1800 OPERATION MANUAL( AUTOMATED BLOOD COUNTS AND [...] 2-19 YEARS EXCLUSIVE. Anion Gap 16 mmol/L [facility] ([facility] NORMAL RANGES Age WBC [...] HCT IS 5% LESS SOURCE FOR DATA: [employer] 1800 OPERATION MANUAL( AUTOMATED BLOOD COUNTS AND [...] HCT IS 5% LESS SOURCE FOR DATA: [employer] 1800 OPERATION MANUAL( AUTOMATED BLOOD COUNTS [...] INDIVIDUALA AGED 2-19 YEARS EXCLUSIVE. eGFR Non-Afr. [place] 55 # [facility] ([facility] [...] HCT IS 5% LESS SOURCE FOR DATA: [employer] 1800 OPERATION MANUAL( AUTOMATED BLOOD COUNTS AND [...] 2-19 YEARS EXCLUSIVE. ID Date Data Source [id number] 10/21/2020 10:41:00 AM EDT [facility] ([facility] Name Value Range Interpretation Code Description Data Ngoc rce(s) Supporting Document(s) Hemoglobin A1c/Hemoglobin.total in Blood 7.0 % 4.8-5.6 Above high normal [facility] ([facility] <content>Prediabetes: 5.7 - 6.4</content >
<content>Diabetes: >6.4</content>
<content>Glycemic control for adults with diabetes: <7.0</content>
<content></content> ID Date Data Source [id number] 01/22/2020 01:46:00 PM EST [facility] ([facility] Name Value Range Interpretation [...] [facility] ID Date Data Source [id number] 01/22/2020 01:46:00 PM EST [facility] ([facility] Name Value Range Interpretation Code Description Data Ngoc rce(s) Supporting Document(s) Hemoglobin A1c/Hemoglobin.total in Blood 6.1 % 4.8-5.6 Above high normal [facility] ([facility] <content>Prediabetes: 5.7 - 6.4</content >
<content>Diabetes: >6.4</content>
<content>Glycemic control for adults with diabetes: <7.0</content>
<content></content> ID Date Data Source [id number] 01/22/2020 01:46:00 PM EST [facility] ([facility] Name Value Range Interpretation Code Description Data Ngoc rce(s) Supporting Document(s) Cholesterol [Mass/volume] in Serum or Plasma 188 mg/dL 100-199 [facility] ([facility] Laboratory test finding (navigational concept) 29 mg/dL 5-40 [facility] ([facility] Cholesterol in HDL [Mass/volume] in Serum or Plasma 58 mg/dL [facility] ([facility] Triglyceride [Mass/volume] in Serum or Plasma 168 mg/dL 0-149 Above high normal [facility] ([facility] Comment: Laboratory test result [facility] ([facility] Laboratory test finding (navigational concept) 101 mg/dL 0-99 Above high normal [facility] ([facility] ID Date Data Source [id number] 01/22/2020 01:46:00 PM EST [facility] ([facility] Name Value Range Interpretation Code Description Data Ngoc rce(s) Supporting Document(s) BUN 23 mg/dL 8-27 [facility] ([facility] Creatinine [Mass/volume] in Serum or Plasma 0.98 mg/dL 0.57-1.00 [facility] ([facility] Glucose [Mass/volume] in Serum [...] mmol/L 3.5- 5.2 Above high normal [facility] ([facility] ) Chloride [Moles/volume] in Serum or Plasma 103 mmol/L 96-106 [facility] ([facility] Protein [Mass/volume] in Serum or Plasma 6.9 g/dL 6.0-8.5 [facility] ([facility] Albumin [Mass/volume] in Serum or Plasma 4.2 g/dL 3.7-4.7 [facility] ([facility] Calcium [Mass/volume] in Serum or Plasma 9.5 mg/dL 8.7-10.3 [facility] ([facility] Carbon dioxide, total [Moles/volume] in Serum or Plasma 24 mmol/L 20 -29 [facility] ([facility] Bilirubin.total [Mass/volume] in Serum or Plasma Laboratory test result 0.0-1.2 [facility] ([facility] ) Albumin/Globulin [Mass Ratio] in Serum or Plasma 1.6 1.2-2.2 [facility] ([facility] Globulin [Mass/volume] in Serum by calculation 2.7 g/dL 1.5-4.5 [facility] ([facility] Aspartate aminotransferase [Enzymatic activity/volume] in Serum or Plasma 12 IU/L 0-40 [facility] ([facility] Alkaline phosphatase [Enzymatic activity/volume] in Serum or Plasma 96 IU/L 39-117 [facility] ([facility] merry[facility] Alanine aminotransferase [Enzymatic activity/volume] in Seru m or Plasma 9 IU/L 0-32 [facility] ([facility] ID Date Data Source [id number] 01/22/2020 01:46:00 PM EST [facility] ([facility] Name Value Range Interpretation Code Description Data Ngoc rce(s) Supporting Document(s) Leukocytes [#/volume] in Blood by Automated count 7.6 x10E3/uL 3.4-10 .8 [facility] ([facility] Erythrocytes [#/volume] in Blood by Automated count 4.01 x10E6/uL 3.7 7-5.28 [facility] ([facility] Hemoglobin [Mass/volume] in Blood 10.9 g/dL 11.1-15.9 Below low nor mal [facility] ([facility] Erythrocyte mean corpuscular hemoglobin [Entitic mass] by Automated count 27.2 pg 26.6-33.0 [facility] ([facility] Hematocrit [Volume Fraction] of Blood by Automated count 34.0 % 3 4.0-46.6 [facility] ([facility] Erythrocyte mean corpuscular volume [Entitic volume] by Auto mated count 85 fL 79-97 [facility] ([facility] Erythrocyte mean corpuscular hemoglobin concentration [Mass/volume] by Automated count 32.1 g/dL 31.5-35.7 [facility] ([facility] ke[facility] Platelets [#/volume] in Blood by Automated count 270 x10E3/uL 150-450 [facility] ([facility] Erythrocyte distribution width [Ratio] by Automated count 16.7 % 11.7-15.4 Above high normal [facility] ([facility] ) Neutrophils 68 % [facility] ([facility] Lymphs 21 % [facility] ([facility] Monocytes/100 leukocytes in Blood [...] by Automated count 0.1 x10E3/uL 0.0-0.2 [facility] ([facility] Immature granulocytes [#/volume] in Blood by Automated count 0.0 x10E3/uL 0.0-0.1 [facility] ([facility] Nucleated erythrocytes/100 leukocytes [Ratio] in Blood by Automated count Laboratory test result [facility] Immature granulocytes/100 leukocytes in Blood by Automated count 0 % [facility] ([facility] Morphology [Interpretation] in Blood Narrative Laboratory test result [facility] ([facility] ID Date Data Source [id number] 11/26/2019 01:00:00 PM EDT [facility] ([facility]) Name Value Range Interpretation Code Description Data Ngoc rce(s) Supporting Document(s) Coronavirus 2019 Nasopharygeal Laboratory test result [facility] ([facility]) This nucleic acid amplification test was developed and its performance characteristics determined by [employer]. Nucleic acid amplification tests include PCR and [...] in this assay. Performed at: RN - [facility] [id number] Family Medicine Chair: Carly Montes De Oca MD, Phone: [phone] Not Detected ID Date Data Source [id number] 11/26/2019 01:00:00 PM EDT [facility] Name Value Range Interpretation Code Description Data Ngoc rce(s) Supporting Document(s) SARS coronavirus 2 RNA [facility] This lab was ordered by [facility] and reported by [facility]. ID Date Data Source [id number] 11/25/2019 12:20:00 PM EDT [facility] ([facility]) Name Value Range Interpretation Code Description Data Ngoc rce(s) Supporting Document(s) Coronavirus 2019 Nasopharygeal Laboratory test result [facility] ([facility]) This nucleic acid amplification test was developed and its performance characteristics determined by [employer]. Nucleic acid amplification tests include PCR and [...] detected) result in this assay. Performed at: [address] [id number] Family Medicine Chair: Carly Montes De Oca MD, Phone: [phone] Not Detected ID Date Data Source [id number] 11/25/2019 12:20:00 PM EDT [facility] Name Value Range Interpretation Code Description Data Ngoc rce(s) Supporting Document(s) SARS coronavirus 2 RNA [facility] This lab was ordered by [facility] and reported by [facility]. ID Date Data Source [id number] 11/20/2019 10:13:00 AM EDT [facility] ([facility] Name Value Range Interpretation Code Description Data Ngoc rce(s) Supporting Document(s) WBC 7.6 10E3/uL 4.1-10.9 [facility] ([facility] NORMAL RANGES Age [...] HCT IS 5% LESS SOURCE FOR DATA: [employer] 1800 OPERATION MANUAL( AUTOMATED BLOOD COUNTS AND DIFF.) APPENDIX B-3 MCV 84.3 fL 80.0-97.0 [facility] ([facility] NORMAL RANGES Age [...] HCT IS 5% LESS SOURCE FOR DATA: [employer] 1800 OPERATION MANUAL( AUTOMATED BLOOD COUNTS AND DIFF.) APPENDIX B-3 RBC 3.69 10E6/uL 4.20-6.30 Below low normal [facility] ([facility] NORMAL [...] HCT IS 5% LESS SOURCE FOR DATA: [employer] 1800 OPERATION MANUAL( AUTOMATED BLOOD COUNTS AND DIFF.) APPENDIX B-3 HGB 9.4 g/dL 12.0-18.0 Below low normal [facility] ( [facility] NORMAL RANGES Age [...] HCT IS 5% LESS SOURCE FOR DATA: [employer] 1800 OPERATION MANUAL( AUTOMATED BLOOD COUNTS AND DIFF.) APPENDIX B-3 MCH 25.5 pg 26.0-32.0 Below low normal [facility] ( [facility] NORMAL RANGES Age [...] DIFF.) APPENDIX B-3 PLT 321 10E3/uL 140-440 [facility] ([facility] NORMAL RANGES Age WBC RBC HGB [...] MCHC 30.2 g/dL 31.0-36.0 Below low normal [facility] ( [facility] NORMAL RANGES Age [...] HCT IS 5% LESS SOURCE FOR DATA: [employer] 1800 OPERATION MANUAL( AUTOMATED BLOOD COUNTS AND DIFF.) APPENDIX B-3 Lym% 19.0 % 10.0-58.5 [facility] ([facility] NORMAL RANGES Age [...] HCT IS 5% LESS SOURCE FOR DATA: [employer] 1800 OPERATION MANUAL( AUTOMATED BLOOD COUNTS AND DIFF.) APPENDIX B-3 RDW-CV 19.2 % 11.5-14.5 Above high normal [facility] ([facility] NORMAL RANGES [...] HCT IS 5% LESS SOURCE FOR DATA: [employer] 1800 OPERATION MANUAL( AUTOMATED BLOOD COUNTS AND DIFF.) APPENDIX B-3 Neut% 70.4 % 37.0-92.0 [facility] ([facility] NORMAL RANGES Age WBC [...] HCT IS 5% LESS SOURCE FOR DATA: [employer] 1800 OPERATION MANUAL( AUTOMATED BLOOD COUNTS AND DIFF.) APPENDIX B-3 Lym# 1.4 10E3/uL 0.6-4.1 [facility] ([facility] NORMAL RANGES Age [...] HCT IS 5% LESS SOURCE FOR DATA: [employer] 1800 OPERATION MANUAL( AUTOMATED BLOOD COUNTS AND DIFF.) APPENDIX B-3 Neut# 5.4 % 2.0-7.8 [facility] ([facility] NORMAL RANGES Age [...] DIFF.) APPENDIX B-3 MXD% 10.6 % 0.1-24.0 [facility] ([facility] NORMAL RANGES Age WBC RBC HGB [...] DIFF.) APPENDIX B-3 MXD# 0.8 10E3/uL 0.0-1.8 [facility] ([facility] NORMAL RANGES Age [...] DIFF.) APPENDIX B-3 MPV 10.0 fL 9.0-13.0 [facility] ([facility] NORMAL RANGES Age WBC [...] HCT IS 5% LESS SOURCE FOR DATA: [employer] 1800 OPERATION MANUAL( AUTOMATED BLOOD COUNTS AND DIFF.) APPENDIX B-3 ID Date Data Source [id number] 11/05/2019 10:43:00 AM EDT [facility] ([facility] Name Value Range Interpretation Code Description Data Ngoc rce(s) Supporting Document(s) Laboratory test finding (navigational concept) Laboratory test result [facility] ([facility] Procedure Social History Code Duration Value Status Description Data Source(s ) Alcohol intake 12/05/2020 12:00:00 AM EDT Ex-drinker (finding) comp leted Ex- drinker (finding) [facility] Alcohol intake 11/23/2020 12:00:00 AM EDT Ex-drinker (finding) comp leted Ex- drinker (finding) [facility] Alcohol intake 11/18/2020 12:00:00 AM EDT Ex-drinker (finding) comp leted Ex- drinker (finding) [facility] Tobacco use and exposure 09/08/2020 12:00:00 AM EDT Never used co mpleted Never used [facility] Smoking 09/08/2020 12:00:00 AM EDT Former smoker completed Former smoker [facility] Alcohol intake 09/08/2020 12:00:00 AM EDT Lifetime non-drinker (finding) completed Lifetime [facility]-drinker (finding) [facility] 02/02/2020 01:21:55 PM EST Ex-smoker (finding) complet ed Ex-smoker (finding) [facility]UM (Aftab Dolan MD [facility]) Vital Signs ID Date Data Source [id number] Name Value Range Interpretation Code Description Data Source(s) Body height 149.9 cm 149.9 cm [facility] Body weight 83.915 kg 83.915 kg [facility] Body mass index (BMI) [Ratio] 37.37 kg/m2 37.37 kg/m2 [facility] Systolic blood pressure 175 mm[Hg] 175 mm[Hg] [facility] Diastolic blood pressure 77 mm[Hg] 77 mm[Hg] [facility] Heart rate 59 /min 59 /min [facility] Body temperature 36.72 Kamille 36.72 Kamille [facility] Respiratory rate 18 /min 18 /min [facility] Oxygen saturation in Arterial blood by Pulse oximetry 94 % 94 % [facility] Body height 149.9 cm 149.9 cm [facility] Body weight 84.3 kg 84.3 kg [facility] Body mass index (BMI) [Ratio] 37.54 kg/m2 37.54 kg/m2 [facility] Systolic blood pressure 122 mm[Hg] 122 mm[Hg] [facility] Diastolic blood pressure 76 mm[Hg] 76 mm[Hg] [facility] Heart rate 76 /min 76 /min [facility] Respiratory rate 19 /min 19 /min [facility] Body height 149.9 cm 149.9 cm [facility] Body weight 85.73 kg 85.73 kg [facility] Body mass index (BMI) [Ratio] 38.17 kg/m2 38.17 kg/m2 [facility] Oxygen saturation in Arterial blood by Pulse oximetry 93 % 93 % [facility] Diastolic blood pressure 68 mm[Hg] 68 mm[Hg] [facility] ([facility] Body temperature 97.6 [degF] 97.6 [degF] [facility] ([facility] Heart rate 58 /min 58 /min [facility] ([facility] Systolic blood pressure 116 mm[Hg] 116 mm[Hg] M [facility]ENT ([facility] Body weight 188.00 [lb_av] 188.00 [lb_av] [facility] T ([facility] Respiratory rate 14 /min 14 /min [facility] ( [facility] [place] body weight 100 [lb_av] 100 [lb_av] [facility] T ([facility] Body height 59 [in_i] 59 [in_i] [facility] ([facility] 4'11" Body mass index (BMI) [Ratio] 38.0 kg/m2 38.0 k g/m2 [facility] ([facility] Oxygen saturation in Arterial blood by Pulse oximetry 96 % 96 % [facility] ([facility] Systolic blood pressure 136 mm[Hg] 136 mm[Hg] [facility] Diastolic blood pressure 78 mm[Hg] 78 mm[Hg] [facility] Heart rate 62 /min 62 /min [facility] Body height 149.9 cm 149.9 cm [facility] Body weight 84.823 kg 84.823 kg [facility] Body mass index (BMI) [Ratio] 37.77 kg/m2 37.77 kg/m2 [facility] Oxygen saturation in Arterial blood by Pulse oximetry 95 % 95 % [facility] Diastolic blood pressure 76 mm[Hg] 76 mm[Hg] [facility] ([facility] Body temperature 97.7 [degF] 97.7 [degF] [facility] ([facility] Body weight 179.00 [lb_av] 179.00 [lb_av] [facility] ([facility] [facility] [place] body weight 100 [lb_av] 100 [lb_av] MEDEN T ([facility] Heart rate 58 /min 58 /min MEDENT ([facility] Body mass index (BMI) [Ratio] 36.1 kg/m2 36.1 k g/m2 MEDENT ([facility] Respiratory rate 14 /min 14 /min DARRYNENT ( [facility] Body height 59 [in_i] 59 [in_i] MEDENT ([facility] 4'11" Systolic blood pressure 120 mm[Hg] 120 mm[Hg] M EDENT ([facility] Oxygen saturation in Arterial blood by Pulse oximetry 97 % 97 % KHLOE ([facility] Body temperature 96.0 [degF] 96.0 [degF] MEDENT ([facility]) Body mass index (BMI) [Ratio] 35.9 kg/m2 35.9 k g/m2 MEDENT ([facility] Body height 59 [in_i] 59 [in_i] MEDENT ([facility]) 4'11" Body weight 178.00 [lb_av] 178.00 [lb_av] MEDEN T ([facility]) Patient Treatment Plan of Care Planned Activity Planned Date Details Description Data Source (s) Metformin hydrochloride 850 MG Oral Tablet 11/25/2020 12:00:00 AM E DT [facility] normal saline flush 0.9 % injection 3 mL 11/23/2020 09:00:00 AM EDT [facility] normal saline flush 0.9 % injection 3 mL 11/23/2020 07:00:00 AM EDT [facility] normal saline flush 0.9 % injection 3 mL 11/23/2020 07:00:00 AM EDT [facility] Aspirin 81 MG Delayed Release Oral Tablet 11/23/2020 12:00:00 AM ED T [facility] ferrous sulfate 325 MG Oral Tablet 11/18/2020 12:00:00 AM EDT [facility] Nystatin 100 UNT/MG Topical Powder 11/13/2020 12:00:00 AM EDT [facility] clopidogrel 75 MG Oral Tablet 11/08/2020 12:00:00 AM EDT [facility] pantoprazole 40 MG Delayed Release Oral Tablet 09/15/2020 12:00:00 AM EDT [facility] Raymond-3 Acid Ethyl Esters (LONG-TERM) 1000 MG Oral Capsule 021 12:00:00 AM EDT [facility] pantoprazole 40 MG Delayed Release Oral Tablet 03/08/2020 12:00:00 AM EST [facility] pantoprazole 40 MG Delayed Release Oral Tablet 02/26/2019 12:00:00 AM EST [facility] Metformin hydrochloride 850 MG Oral Tablet 01/03/2015 12:00:[address] [facility] Aspirin 325 MG Oral Tablet 01/03/2015 12:00:00 AM EST [facility]
[2020-12-21] MEDS ORDERED: ISOVUE-370 76% 100ML VIAL As Ordered ONE (15:17)
--- NOTE | 2020-12-21 16:02 | REP ---
INDICATION: r lung nodule COMPARISON: None. TECHNIQUE: Standard helical technique after the intravenous administration of 100 cc Isovue 370 FINDINGS: There is no mediastinal or hilar adenopathy. There are no pleural or pericardial effusions. The imaged upper abdomen shows a low-density lesion arising from the superior pole the right kidney measuring 1.6 cm and having slightly higher than water density Hounsfield unit readings. At the same level medially there is a smaller lesion of similar imaging characteristics. The imaged osseous structures are within normal limits for the patient's age. Evaluation of the lung brunner shows an irregular somewhat spiculated 2 cm size nodule in the right lower lobe. There is a 9 mm size nodule in the left lower lobe and an irregular 1.5 cm sized nodule also in the left lower lobe. There is a spiculated 1 cm size nodule in the apicoposterior segment of the left upper lobe. There are additional numerous but smaller nodules scattered throughout both lung brunner. IMPRESSION: 1. There are numerous lung nodules as described above the dominant nodule is in the right lower lobe measuring 2 cm. Neoplasm is suspected. According to the revised Fleischner society criteria PET-CT versus tissue sampling. Certainly, inflammatory nodules could have the same appearance. There are no priors for comparison. 2. Probable right renal cysts, however, no pre contrast-enhanced examination for review. Pre and postcontrast enhanced abdominal CT is suggested. 3. Other findings as described above. <Electronically signed by Yifan Cordoba > 12/21/20 [id number]
[2020-12-21 17:15] VITALS: BP 174/74
--- NOTE | 2020-12-22 20:07 | ECGEPIP ---
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
== END 2020-12-21 17:27 | disposition home or self-care (01) ==
LOC: M ED 13:13
DX: R51.9 Headache, unspecified (principal); R91.1 Solitary pulmonary nodule; E11.9 Type 2 diabetes mellitus without complications; I10 Essential (primary) hypertension; I25.10 Atherosclerotic heart disease of native coronary artery without angina pectoris; Z79.899 Other long term (current) drug therapy; Z79.84 Long term (current) use of oral hypoglycemic drugs; Z79.82 Long term (current) use of aspirin
CPT/HCPCS: 70450; 71045; 71260; 80053; 82550; 82553; 84484; 85025; 85610; 85730; 93005; 93041; 94760; 96374; 96375; 99285; J2765; Q9967

== ENCOUNTER → 2021-01-02 | Outpatient (CLI) | payer MEDICARE ==
[~2021-01-02] MED LIST changes: +PROHANCE 279.3MG/ML 15ML VIAL As Ordered ONE
--- NOTE | 2021-01-02 14:32 | REPVR ---
PROCEDURE INFORMATION: Exam: MR Head Without and With Contrast Exam date and time: 01/02/2021 12:41 PM Age: 75 years old Clinical indication: Condition or disease; Other: Brain mets TECHNIQUE: Imaging protocol: MR of the head without and with intravenous contrast. Contrast material: PROHANCE; Contrast volume: 8 ml; Contrast route: INTRAVENOUS (IV); COMPARISON: CT Head without contrast 12/21/2020 1:43 PM FINDINGS: Brain: No restricted diffusion is seen to suggest acute infarction. There is no acute intracranial hemorrhage, cerebral edema, or midline shift. Age-related cerebral and cerebellar substance loss is present. Scattered increased T2 and FLAIR signal within the periventricular and subcortical white matter is present. This is nonspecific but likely related to chronic microangiopathic ischemic change. 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 A small chronic infarct is also noted within the splenium of the corpus callosum, just to the right of midline. Artifactual T2 shine through is noted within this area on the diffusion-weighted sequence. No enhancing lesions were identified after the administration of contrast. Cerebral ventricles: No hydrocephalus. Pituitary gland and sella: Incidental note is made of an enlarged intrasellar cistern. Bones/joints: Unremarkable. Paranasal sinuses: Normal as visualized. No acute sinusitis. Mastoid air cells: Normal as visualized. No mastoid effusion. Orbital cavity: Unremarkable. Soft tissues: Unremarkable. IMPRESSION: 1. No acute intracranial abnormality. 2. Chronic findings as discussed above. Electronically signed by: Helder Carranza On 01/02/2021 14:31:28 PM
== END ==
LOC: M RAD 11:17
PROVIDERS: ATTEND Internal Medicine
DX: D38.1 Neoplasm of uncertain behavior of trachea, bronchus and lung (principal)
CPT/HCPCS: 70553; A9576

== ENCOUNTER → 2021-01-16 | Outpatient (CLI) | payer MEDICARE ==
[~2021-01-16] MED LIST changes: -PROHANCE 279.3MG/ML 15ML VIAL As Ordered ONE
--- NOTE | 2021-01-16 15:17 | REP ---
INDICATION: STAGING LUNG CANCER D38.1. COMPARISON: Prior diagnostic CT of the chest of 12/21/2020 reviewed TECHNIQUE: After the intravenous administration of 9.2 mCi of FDG 18 triplane whole-body PET-CT was performed from the skull base to the mid thigh. FINDINGS: The dominant nodule seen in the right lung on the prior diagnostic chest CT in the lower lobe which measured 2 cm is hypermetabolic with a maximal SUV value of 2.92. additionally, there is a borderline to mildly enlarged hypermetabolic subcarinal lymph node which has a maximal SUV value of 3.82. No other areas of abnormal hypermetabolic activity are seen in the neck, chest, abdomen, or pelvis. There are scattered areas of hypermetabolism seen throughout the skeletal musculature all of which is consistent with insufficient post injection resting. IMPRESSION: Abnormal hypermetabolic lung nodule in the right lower lobe with hypermetabolic adenopathy as described above. <Electronically signed by Yifan Cordoba > 01/16/21 [id number]
== END ==
LOC: M PLARAD 07:34
PROVIDERS: ATTEND Internal Medicine
DX: D38.1 Neoplasm of uncertain behavior of trachea, bronchus and lung (principal)
CPT/HCPCS: 78815; A9552

== ENCOUNTER → 2021-01-31 | Outpatient (CLI) | payer MEDICARE ==
--- NOTE | 2021-02-01 08:57 | REPVR ---
PROCEDURE INFORMATION: Exam: CT Chest Without Contrast; Diagnostic Exam date and time: 01/31/2021 1:56 PM Age: 75 years old Clinical indication: Abnormal findings; Abnormal radiologic exam of lung or chest; Additional info: Abnormal finding of lung field TECHNIQUE: Imaging protocol: Diagnostic computed tomography of the chest without contrast. Radiation optimization: All CT scans at this facility use at least one of these dose optimization techniques: automated exposure control; mA and/or kV adjustment per patient size (includes targeted exams where dose is matched to clinical indication); or iterative reconstruction. COMPARISON: PT PET/CT Skull/mid thigh 01/16/2021 7:58 AM FINDINGS: Lungs: Multiple bilateral pulmonary nodules largest within the superior segment of the right lower lobe spiculated in margination measures 2.2 cm similar or minimally accentuated in size compared to previous. Numerous additional smaller nodules right lung and throughout the left lung are persistent. Largest posterior left upper lobe measures 1.5 cm may also reflect slight interval increase of size. Pleural spaces: Unremarkable. No pneumothorax. No pleural effusion. Heart: Cardiac enlargement. Aorta: Atherosclerosis thoracic aorta and distribution of coronary arteries. Lymph nodes: Unremarkable. No enlarged lymph nodes. Bones/joints: Degenerative change of the spine. Area of sclerosis within the medial aspect of the right clavicle. Soft tissues: Unremarkable. IMPRESSION: 1. Multiple persistent bilateral pulmonary nodules with largest nodule right and left lung slightly accentuated in size compared to previous. Numerous nodules are unchanged. Partial cavitation of the larger nodules are not excluded. Correlation to recent PET CT and clinical history are required. 2. Area of sclerosis medial right clavicle is nonspecific. 3. Atherosclerosis thoracic aorta and distribution of coronary arteries. 4. Cardiac enlargement. Electronically signed by: Dafne Kelly On 02/01/2021 08:57:18 AM
== END ==
LOC: M PLAIMG 12:41
PROVIDERS: ATTEND Internal Medicine Pulmonary Disease
DX: R91.8 Other nonspecific abnormal finding of lung field (principal)

== ENCOUNTER → 2021-01-31 | Outpatient (CLI) | payer MEDICARE ==
[2021-01-31 15:40] LABS: PLATELET COUNT, AUTOMATED 265 10^3/uL (150-450)
[2021-01-31 15:46] LABS: INR 1.08; PROTHROMBIN TIME 14.4 SECONDS (12.7-14.5)
[2021-01-31 15:47] LABS: PARTIAL THROMBOPLASTIN TIME 38.3 SECONDS (25.9-37.0)
== END ==
LOC: M PLALAB 13:39
PROVIDERS: ATTEND Internal Medicine Pulmonary Disease
DX: Z01.812 Encounter for preprocedural laboratory examination (principal)

== ENCOUNTER → 2021-02-02 | Outpatient (CLI) | payer MEDICARE ==
[~2021-02-02] MED LIST changes: +ACET1TAB55 PO; +ANOR1AER INH; +ASPI81TA26 PO; +SPIR12.9 INH; +TIZA10TA PO; -TIZA4TAB4 PO
== END ==
LOC: M ONCR 09:57
PROVIDERS: ATTEND General Practice
DX: R91.1 Solitary pulmonary nodule (principal); E11.9 Type 2 diabetes mellitus without complications; Z85.42 Personal history of malignant neoplasm of other parts of uterus; Z92.3 Personal history of irradiation; Z79.899 Other long term (current) drug therapy

== ENCOUNTER → 2021-02-03 | Outpatient (CLI) | payer MEDICARE ==
[~2021-02-03] MED LIST changes: -ACET1TAB55 PO; -TIZA10TA PO; +TIZA4TAB4 PO
== END ==
LOC: M LABSMTC 10:32
PROVIDERS: ATTEND Anesthesiology
DX: Z01.812 Encounter for preprocedural laboratory examination (principal); Z20.822 Contact with and (suspected) exposure to COVID-19

== ENCOUNTER → 2021-02-07 | Outpatient (CLI) | payer MEDICARE ==
[~2021-02-07] MED LIST changes: +ACET1TAB55 PO; +TIZA10TA PO; -TIZA4TAB4 PO
== END ==
LOC: M LABSMTC 09:00
PROVIDERS: ATTEND Anesthesiology
DX: Z01.812 Encounter for preprocedural laboratory examination (principal); Z11.52 Encounter for screening for COVID-19

== ENCOUNTER 2021-02-08 06:16 | Day surgery (SDC) | payer MEDICARE ==
[~2021-02-08] VITALS: Ht 152.4 cm; Wt 83.0 kg
[~2021-02-08 06:16] MED LIST changes: -ACET1TAB55 PO; +ALBUTEROL SULFATE 2.5 MG/0.5 ML INH NEB SOLN INH ONE; +LIDOCAINE 4% INJ 5ML AMP INH ONE; +LR 1,000 ML IV ONE
[2021-02-08] MEDS ORDERED: ACET1TAB55 PO (06:38)
[2021-02-08] MEDS ORDERED: MIDAZOLAM INJ 2MG/2ML VIAL (J2250 PER 1MG) As Ordered ONE (06:44)
[2021-02-08] MEDS ORDERED: fentaNYL 100 MCG/2 ML INJECTION (J3010) As Ordered ONE (06:44)
[2021-02-08] MEDS ORDERED: ROCURONIUM BROMIDE 50 MG/5 ML VIAL As Ordered ONE (06:47)
[2021-02-08] MEDS ORDERED: LIDOCAINE 2% 100MG/5ML SDV (FOR ANES.) As Ordered ONE (06:47)
[2021-02-08] MEDS ORDERED: propofoL 200 MG/20 ML VIAL As Ordered ONE (06:47)
[2021-02-08] MEDS ORDERED: EPINEPHrine 1MG/10ML SYRINGE 1.5IN As Ordered ONE (07:18)
[2021-02-08] MEDS ORDERED: CETACAINE SPRAY 5GM As Ordered ONE (07:18)
[2021-02-08] MEDS ORDERED: LIDOCAINE 1% SDV 30ML VIAL As Ordered ONE (07:18)
[2021-02-08] MEDS ORDERED: THROMBIN SOLN 20,000 UNITS KIT As Ordered ONE (07:18)
[2021-02-08] MEDS ORDERED: CARVedilol 12.5 MG TAB PO ONE (07:25)
[2021-02-08] MEDS ORDERED: dexameTHASONE 4 MG/ML 1ML VIAL (J1100 PER 1MG) As Ordered ONE (07:51)
[2021-02-08] MEDS ORDERED: ONDANSETRON 4MG/2ML VIAL As Ordered ONE (07:51)
[2021-02-08] MEDS ORDERED: SUGAMMADEX SODIUM 500 MG/5 ML VIAL (BRIDION) As Ordered ONE (07:51)
[2021-02-08] MEDS ORDERED: PHENYLephrine 500MCG 5ML (100MCG/ML) SYRINGE As Ordered ONE (08:01)
[2021-02-08] MEDS ORDERED: ePHEDrine SULFATE 25 MG/5 ML(5MG/ML) SYRINGE As Ordered ONE (08:02)
[2021-02-08] MEDS ORDERED: ONDANSETRON 4MG/2ML VIAL IV PRN (09:20)
[2021-02-08] MEDS ORDERED: LR 1,000 ML IV SCH (09:20)
[2021-02-08] MEDS ORDERED: FUROSEMIDE 20MG/2ML VIAL (J1940) IV ONE (10:55)
[2021-02-08] MEDS ORDERED: IPRATROPIUM 0.5MG/ALBUTEROL 2.5MG INH SOL UD 3ML (DUONEB) NEB ONE (11:00)
[2021-02-08] MEDS ORDERED: amLODIPine 5 MG TAB PO ONE (11:05)
[2021-02-08] MEDS ORDERED: FUROSEMIDE 40MG/4ML VIAL (J1940) IV ONE (11:05)
[2021-02-08 13:40] VITALS: BP 191/84
== END 2021-02-08 13:55 | disposition home or self-care (01) ==
LOC: M SDC 06:16
PROVIDERS: ATTEND Internal Medicine Pulmonary Disease
DX: R91.1 Solitary pulmonary nodule (principal); R59.0 Localized enlarged lymph nodes; J44.9 Chronic obstructive pulmonary disease, unspecified; R06.02 Shortness of breath; G47.33 Obstructive sleep apnea (adult) (pediatric); I11.9 Hypertensive heart disease without heart failure; I25.10 Atherosclerotic heart disease of native coronary artery without angina pectoris; E11.9 Type 2 diabetes mellitus without complications; K21.9 Gastro-esophageal reflux disease without esophagitis; I25.2 Old myocardial infarction; E78.00 Pure hypercholesterolemia, unspecified; M79.7 Fibromyalgia; F32.9 Major depressive disorder, single episode, unspecified; G43.909 Migraine, unspecified, not intractable, without status migrainosus; Z86.73 Personal history of transient ischemic attack (TIA), and cerebral infarction without residual deficits; Z85.42 Personal history of malignant neoplasm of other parts of uterus; Z92.3 Personal history of irradiation; Z90.710 Acquired absence of both cervix and uterus; Z90.2 Acquired absence of lung [part of]; Z87.891 Personal history of nicotine dependence; Z95.5 Presence of coronary angioplasty implant and graft; Z79.899 Other long term (current) drug therapy; Z79.82 Long term (current) use of aspirin; Z79.84 Long term (current) use of oral hypoglycemic drugs
CPT/HCPCS: 31624; 31627; 31628; 31629; 31652; 31654; 71045; 76000; 87070; 87102; 87116; 87205; 87206; 88108; 88173; 88305; 88313; J1100; J1940; J2250; J2370; J2405; J3010; S2900; U0002

== ENCOUNTER → 2021-03-14 | Outpatient (CLI) | payer MEDICARE ==
[~2021-03-14] MED LIST changes: +ACET1TAB55 PO; -ALBUTEROL SULFATE 2.5 MG/0.5 ML INH NEB SOLN INH ONE; -LIDOCAINE 4% INJ 5ML AMP INH ONE; -LR 1,000 ML IV ONE
== END ==
LOC: M RAD 09:12
PROVIDERS: ATTEND Nurse Practitioner Family
DX: Z86.73 Personal history of transient ischemic attack (TIA), and cerebral infarction without residual deficits (principal)

== ENCOUNTER → 2021-03-22 | Outpatient (CLI) | payer MEDICARE ==
[2021-03-22 13:48] LABS: ALBUMIN 3.3 GM/DL (3.2-5.2); BILIRUBIN,TOTAL 0.2 MG/DL (0.2-1.0); CALCIUM LEVEL 9.2 MG/DL (8.8-10.2); CREATININE FOR GFR 1.2 MG/DL (0.55-1.30); GLOMERULAR FILTRATION RATE 46.6 (>39); TOTAL PROTEIN 7.6 GM/DL (6.4-8.2)
== END ==
LOC: M ONCR 12:58
PROVIDERS: ATTEND General Practice
DX: C34.11 Malignant neoplasm of upper lobe, right bronchus or lung (principal)

== ENCOUNTER → 2021-04-03 | Outpatient (CLI) | payer MEDICARE | LOC: M SLEEP 20:00 | PROVIDERS: ATTEND Internal Medicine Pulmonary Disease | DX: G47.33 Obstructive sleep apnea (adult) (pediatric) (principal) ==

== ENCOUNTER → 2021-04-05 | Outpatient (CLI) | payer MEDICARE ==
[~2021-04-05] MED LIST changes: +ISOVUE-370 76% 100ML VIAL As Ordered ONE
== END ==
LOC: M RAD 13:39
PROVIDERS: ATTEND General Practice
DX: R91.1 Solitary pulmonary nodule (principal)
CPT/HCPCS: 71260; Q9967

== ENCOUNTER → 2021-04-27 | Outpatient (CLI) | payer MEDICARE ==
[~2021-04-27] MED LIST changes: -ISOVUE-370 76% 100ML VIAL As Ordered ONE
== END ==
LOC: M ONCR 08:52
PROVIDERS: ATTEND General Practice
DX: R91.8 Other nonspecific abnormal finding of lung field (principal); Z79.82 Long term (current) use of aspirin; Z79.899 Other long term (current) drug therapy; Z85.41 Personal history of malignant neoplasm of cervix uteri; Z87.891 Personal history of nicotine dependence; Z90.2 Acquired absence of lung [part of]; Z90.710 Acquired absence of both cervix and uterus; Z90.79 Acquired absence of other genital organ(s); Z92.3 Personal history of irradiation

== ENCOUNTER → 2021-05-10 | Outpatient (CLI) | payer MEDICARE ==
[2021-05-10 19:35] LABS: CA19-9 TUMOR MARKER,CARBOHYDRA < 1.2 U/ML (<35.0)
== END ==
LOC: M PLALAB 15:18
PROVIDERS: ATTEND Internal Medicine Pulmonary Disease
DX: J44.9 Chronic obstructive pulmonary disease, unspecified (principal); Z79.899 Other long term (current) drug therapy

== ENCOUNTER → 2021-07-12 | Outpatient (CLI) | payer MEDICARE | LOC: M PLAIMG 09:54 | PROVIDERS: ATTEND Internal Medicine Pulmonary Disease | DX: J44.9 Chronic obstructive pulmonary disease, unspecified (principal); R91.1 Solitary pulmonary nodule ==

== ENCOUNTER → 2022-01-17 | Outpatient (CLI) | payer MEDICARE | LOC: M RAD 15:03 | PROVIDERS: ATTEND Internal Medicine Pulmonary Disease | DX: R91.8 Other nonspecific abnormal finding of lung field (principal) ==

== ENCOUNTER → 2022-03-07 | Outpatient (CLI) | payer MEDICARE ==
[~2022-03-07] MED LIST changes: +ACETAMINOPHEN 325 MG TAB As Ordered ONE; +ACETAMINOPHEN TAB 650MG DOSE (2X325MG) PO PRN; +ASPI-1 PO; +COMBAER6 INH; +HOME MED LIST COMPLETE! XX SCH; +LIDOCAINE 1% MDV 20ML VIAL As Ordered ONE
[2022-03-07 08:36] LABS: PLATELET COUNT, AUTOMATED 281 10^3/uL (150-450)
[2022-03-07 09:02] LABS: INR 0.96
[2022-03-07 09:03] LABS: PARTIAL THROMBOPLASTIN TIME 34.1 SECONDS (24.8-34.2)
[2022-03-07 11:39] VITALS: BP 168/75
== END ==
LOC: M IRPRO 07:33
PROVIDERS: ATTEND Internal Medicine Pulmonary Disease
DX: R91.1 Solitary pulmonary nodule (principal)

== ENCOUNTER → 2022-03-22 | Outpatient (REF) | payer MEDICARE ==
[~2022-03-22] MED LIST changes: -ACETAMINOPHEN 325 MG TAB As Ordered ONE; -ACETAMINOPHEN TAB 650MG DOSE (2X325MG) PO PRN; -HOME MED LIST COMPLETE! XX SCH; -LIDOCAINE 1% MDV 20ML VIAL As Ordered ONE
[2022-03-22 14:19] LABS: CREATININE FOR GFR 0.98 MG/DL (0.55-1.30); GLOMERULAR FILTRATION RATE 58.7 (>39)
== END ==
LOC: M LAB REF 12:51
PROVIDERS: ATTEND Internal Medicine Pulmonary Disease
DX: C34.90 Malignant neoplasm of unspecified part of unspecified bronchus or lung (principal)

== ENCOUNTER → 2022-03-28 | Outpatient (CLI) | payer MEDICARE ==
[~2022-03-28] MED LIST changes: +GASTROGRAFIN SOLUTION 30ML As Ordered ONE; +ISOVUE-370 76% 100ML VIAL As Ordered ONE
== END ==
LOC: M RAD 14:21
PROVIDERS: ATTEND Internal Medicine Pulmonary Disease
DX: C34.90 Malignant neoplasm of unspecified part of unspecified bronchus or lung (principal)
CPT/HCPCS: 74177; Q9963; Q9967

== ENCOUNTER → 2022-03-29 | Outpatient (CLI) | payer MEDICARE ==
[~2022-03-29] MED LIST changes: -GASTROGRAFIN SOLUTION 30ML As Ordered ONE; -ISOVUE-370 76% 100ML VIAL As Ordered ONE
== END ==
LOC: M LABSMTC 10:54
PROVIDERS: ATTEND Anesthesiology
DX: Z01.818 Encounter for other preprocedural examination (principal)

== ENCOUNTER → 2022-03-31 | Outpatient (CLI) | payer MEDICARE | LOC: M RAD 10:12 | PROVIDERS: ATTEND Nurse Practitioner Family | DX: M51.34 Other intervertebral disc degeneration, thoracic region (principal); M51.24 Other intervertebral disc displacement, thoracic region; R91.1 Solitary pulmonary nodule ==

== ENCOUNTER → 2022-04-02 | Outpatient (CLI) | payer MEDICARE ==
[~2022-04-02] MED LIST changes: +LIDOCAINE 1% MDV 20ML VIAL As Ordered ONE; +MIDAZOLAM INJ 2MG/2ML VIAL As Ordered ONE; +NS 1,000 ML IV SCH; +VANCOMYCIN 1000MG/20ML VIAL As Ordered ONE; +VANCOMYCIN HCL 1,000 MG, VIAL MATE ADAPTER 1 EACH in NS 250 ML IV ONE; +diphenhydrAMINE 50MG/ML VIAL As Ordered ONE; +fentaNYL 100 MCG/2 ML INJECTION As Ordered ONE
[2022-04-02 12:30] VITALS: BP 135/58
== END ==
LOC: M IRPRO 08:27
PROVIDERS: ATTEND Specialist
DX: C78.00 Secondary malignant neoplasm of unspecified lung (principal)
CPT/HCPCS: 36561; 99152; 99153; C1769; C1788; C1894; J2250; J3010

== ENCOUNTER → 2022-04-24 | Outpatient (POV) | payer MEDICARE ==
[~2022-04-24] VITALS: Ht 149.9 cm; Wt 85.9 kg
[~2022-04-24] MED LIST changes: -LIDOCAINE 1% MDV 20ML VIAL As Ordered ONE; -MIDAZOLAM INJ 2MG/2ML VIAL As Ordered ONE; -NS 1,000 ML IV SCH; -VANCOMYCIN 1000MG/20ML VIAL As Ordered ONE; -VANCOMYCIN HCL 1,000 MG, VIAL MATE ADAPTER 1 EACH in NS 250 ML IV ONE; -diphenhydrAMINE 50MG/ML VIAL As Ordered ONE; -fentaNYL 100 MCG/2 ML INJECTION As Ordered ONE
[2022-04-24 13:30] VITALS: BP 132/70
== END ==
LOC: M IRPOV 13:17
PROVIDERS: ATTEND Radiology Diagnostic Radiology
DX: Z45.2 Encounter for adjustment and management of vascular access device (principal); Z88.0 Allergy status to penicillin

== ENCOUNTER → 2022-07-25 | Outpatient (CLI) | payer MEDICARE ==
[~2022-07-25] VITALS: Ht 149.9 cm; Wt 85.5 kg
[~2022-07-25] MED LIST changes: +METH5TA PO; +ONDA-84 PO; +PROC10TA5 PO
[2022-07-25 10:07] VITALS: BP 126/67
== END ==
LOC: M PAL 09:49
PROVIDERS: ATTEND Nurse Practitioner Adult Health
DX: C54.1 Malignant neoplasm of endometrium (principal); Z51.5 Encounter for palliative care; C78.01 Secondary malignant neoplasm of right lung; Z92.21 Personal history of antineoplastic chemotherapy; G62.0 Drug-induced polyneuropathy; I25.10 Atherosclerotic heart disease of native coronary artery without angina pectoris; I25.2 Old myocardial infarction; Z95.5 Presence of coronary angioplasty implant and graft; J44.9 Chronic obstructive pulmonary disease, unspecified; F32.A Depression, unspecified; Z66 Do not resuscitate; Z79.82 Long term (current) use of aspirin; Z79.51 Long term (current) use of inhaled steroids; Z88.0 Allergy status to penicillin; Z90.710 Acquired absence of both cervix and uterus; Z87.891 Personal history of nicotine dependence

== ENCOUNTER → 2022-08-08 | Outpatient (CLI) | payer MEDICARE ==
[~2022-08-08] VITALS: Ht 149.9 cm; Wt 82.0 kg
[2022-08-08 09:50] VITALS: BP 125/74; TEMP 96.8; O2SAT 95
== END ==
LOC: M PAL 09:42
PROVIDERS: ATTEND Nurse Practitioner Adult Health
DX: C54.1 Malignant neoplasm of endometrium (principal); C78.01 Secondary malignant neoplasm of right lung; E11.9 Type 2 diabetes mellitus without complications; G62.0 Drug-induced polyneuropathy; I25.10 Atherosclerotic heart disease of native coronary artery without angina pectoris; I25.2 Old myocardial infarction; Z95.5 Presence of coronary angioplasty implant and graft; J44.9 Chronic obstructive pulmonary disease, unspecified; F32.A Depression, unspecified; Z51.5 Encounter for palliative care; Z66 Do not resuscitate; Z92.21 Personal history of antineoplastic chemotherapy; Z79.84 Long term (current) use of oral hypoglycemic drugs; Z79.82 Long term (current) use of aspirin; Z79.51 Long term (current) use of inhaled steroids; Z88.0 Allergy status to penicillin; Z90.710 Acquired absence of both cervix and uterus; Z87.891 Personal history of nicotine dependence
CPT/HCPCS: 93005; G0463

== ENCOUNTER → 2022-08-13 | Outpatient (REF) | payer MEDICARE ==
[~2022-08-13] MED LIST changes: +ALBU8.5H INH; +AMLO25TA PO; +DICL3GEL2 TOP; +LEVO1TAB39 PO; +MECL-136 PO; +ONDA8TAB8 PO
== END ==
LOC: M LAB REF 11:35
PROVIDERS: ATTEND Specialist
DX: C54.1 Malignant neoplasm of endometrium (principal); D64.81 Anemia due to antineoplastic chemotherapy

== ENCOUNTER 2022-08-27 12:17 | Inpatient (IN) | payer MEDICARE ==
[~2022-08-27] VITALS: Ht 149.9 cm; Wt 79.5 kg
[~2022-08-27 12:17] MED LIST changes: -ALBU8.5H INH; -DICL3GEL2 TOP; -LEVO1TAB39 PO; -MECL-136 PO
[2022-08-27] MEDS ORDERED: diazePAM 10MG/2ML SYRINGE IV ONE (13:05)
[2022-08-27] MEDS ORDERED: NS 500 ML IV ONE (13:05)
[2022-08-27] MEDS ORDERED: MORPHINE 4 MG/ML 1ML VIAL IV ONE ×2 (13:05→14:20)
[2022-08-27 13:40] LABS: BASO % 0.2 % (0.0-1.0); EOS % 0.3 % (0.0-3.0); HEMATOCRIT 34.4 % (36.0-47.0); HEMOGLOBIN 11.5 g/dl (12.0-15.5); LYMPH # 0.7 10^3/uL (1.5-5.0); LYMPH % 10.5 % (24.0-44.0); MEAN CORPUSCULAR HEMOGLOBIN 32.5 pg (27.0-33.0); MEAN CORPUSCULAR HGB CONC 33.4 g/dl (32.0-36.5); MEAN CORPUSCULAR VOLUME 97.2 fl (80.0-96.0); MONO # 0.2 10^3/uL (0.0-0.8); MONO % 2.6 % (2.0-8.0); NEUTROPHILS # 5.3 10^3/uL (1.5-8.5); NEUTROPHILS % 85.9 % (36.0-66.0); PLATELET COUNT, AUTOMATED 162 10^3/uL (150-450); RED BLOOD COUNT 3.54 10^6/uL (4.00-5.40); WHITE BLOOD COUNT 6.2 10^3/uL (4.0-10.0)
[2022-08-27 13:59] LABS: LIPASE 21 U/L (12-53)
[2022-08-27 14:01] LABS: ALKALINE PHOSPHATASE 113 U/L (46-116); ALT/SGPT 22 U/L (7.0-40); AST/SGOT < 8 U/L (<34); BILIRUBIN,DIRECT 0.1 MG/DL (<0.4); BILIRUBIN,TOTAL 0.6 MG/DL (0.3-1.2); MAGNESIUM LEVEL 1.6 MG/DL (1.8-2.4)
[2022-08-27] MEDS ORDERED: ISOVUE-370 76% 100ML VIAL As Ordered ONE (14:04)
[2022-08-27 14:16] LABS: RSV AMPLIFICATION NEGATIVE (NEGATIVE)
[2022-08-27] MEDS ORDERED: amLODIPine 5 MG TAB PO ONE (14:20)
[2022-08-27] MEDS ORDERED: CARVedilol 12.5 MG TAB PO ONE (14:20)
[2022-08-27] MEDS ORDERED: MAG SULF 1GM/100ML (MAG RUN) 1 GM in IV 1 EA IV ONE (15:10)
[2022-08-27 15:24] LABS: CK-MB VALUE MASS < 1.0 NG/ML (<3.6); CPK CREATINE PHOSPHOKINASE 26 U/L (34-145); MB/CK RELATIVE INDEX 3.84 (< OR =4)
[2022-08-27] MEDS ORDERED: MED REC IN PROGRESS XX SCH (17:55)
[2022-08-27] MEDS ORDERED: MOM 30ML SUSPENSION UDC PO PRN (18:00)
[2022-08-27] MEDS ORDERED: GLUCAGON INJ 1MG VIAL SC PRN (18:00)
[2022-08-27] MEDS ORDERED: GLUCOSE 4GM CHEW TABLET PO PRN (18:00)
[2022-08-27] MEDS ORDERED: ACETAMINOPHEN TAB 650MG DOSE (2X325MG) PO SCH (18:00)
[2022-08-27] MEDS ORDERED: ACETAMINOPHEN TAB 650MG DOSE (2X325MG) PO PRN (18:00)
[2022-08-27] MEDS ORDERED: DEXTROSE 50% 50ML SYRINGE IV PRN (18:00)
[2022-08-27] MEDS ORDERED: oxyCODONE 5MG TAB PO PRN ×2 (18:10)
[2022-08-27] MEDS ORDERED: ALBU8.5H INH (18:14)
[2022-08-27] MEDS ORDERED: MORPHINE 10 MG/ML 1ML VIAL IV PRN (18:15)
[2022-08-27] MEDS ORDERED: ASPI81TA26 PO (18:23)
[2022-08-27] MEDS ORDERED: HOME MED LIST COMPLETE! XX SCH (18:30)
[2022-08-27] MEDS: ACETAMINOPHEN 500 MG TAB PO SCH ×2 (18:59→23:46)
[2022-08-27 19:04] LABS: CK-MB VALUE MASS < 1.0 NG/ML (<3.6)
[2022-08-27 19:05] LABS: CPK CREATINE PHOSPHOKINASE 36 U/L (34-145); MB/CK RELATIVE INDEX 2.77 (< OR =4)
[2022-08-27] MEDS: FORMOTEROL FUMARATE 20 MCG/2 ML INHALATION SOLUTION (PERFOROMIST) INH SCH (20:00)
[2022-08-27] MEDS ORDERED: ONDANSETRON 4MG ORAL DISINTEGRATING TAB PO PRN (20:05)
[2022-08-27] MEDS ORDERED: ALBUTEROL 90 MCG/ACT 8GM HFA INHALER INH PRN (20:05)
[2022-08-27] MEDS ORDERED: LABETALOL 100MG/20ML VIAL IV STA (20:07)
[2022-08-27 20:15] LABS: PARTIAL THROMBOPLASTIN TIME 28.8 SECONDS (24.8-34.2); PROTHROMBIN TIME 13.4 SECONDS (12.5-14.5)
[2022-08-27] MEDS: INSULIN LISPRO (NovoLOG) PER UNIT SC SCH (21:00)
[2022-08-27] MEDS ORDERED: PILL CUTTER 1 EACH XX PRN (21:05)
[2022-08-27] MEDS ORDERED: hydrALAZINE 20MG/ML 1ML VIAL IV PRN (21:25)
[2022-08-27 22:45] VITALS: BP 179/90; TEMP 96.4; O2SAT 96
[2022-08-27] MEDS: METHADONE 5MG TAB PO SCH (23:35)
[2022-08-27] MEDS: GABAPENTIN 300 MG CAP PO SCH (23:36)
[2022-08-27] MEDS: ATORVASTATIN 20 MG TAB PO SCH (23:36)
[2022-08-27] MEDS: DULoxetine 30MG CAPSULE (CYMBALTA) PO SCH (23:36)
[2022-08-27] MEDS: MAGNESIUM OXIDE 400MG TAB (MAG-OX) PO SCH (23:37)
[2022-08-27] MEDS: RIVAROXABAN 10MG TAB (XARELTO) PO SCH (23:37)
[2022-08-27] MEDS: PANTOPRAZOLE 40MG TAB (PROTONIX) PO SCH (23:39)
[2022-08-27] MEDS: DOCUSATE SODIUM 100MG CAPSULE PO SCH (23:39)
[2022-08-27] MEDS: CARVedilol 12.5 MG TAB PO SCH (23:42)
[2022-08-27] MEDS: DICLOFENAC EPOLAMINE 1.3% PATCH TOP SCH (23:45)
[2022-08-28] VITALS (7 sets, daily range): BP systolic 91–144; BP diastolic 43–76; TEMP 97–98.2; O2SAT 94–95
[2022-08-28] MEDS: ACETAMINOPHEN 500 MG TAB PO SCH ×3 (06:11→18:35)
[2022-08-28 06:48] LABS: HEMATOCRIT 29.8 % (36.0-47.0); HEMOGLOBIN 9.6 g/dl (12.0-15.5); MEAN CORPUSCULAR HEMOGLOBIN 31.8 pg (27.0-33.0); MEAN CORPUSCULAR HGB CONC 32.2 g/dl (32.0-36.5); MEAN CORPUSCULAR VOLUME 98.7 fl (80.0-96.0); PLATELET COUNT, AUTOMATED 107 10^3/uL (150-450); RED BLOOD COUNT 3.02 10^6/uL (4.00-5.40); WHITE BLOOD COUNT 3.4 10^3/uL (4.0-10.0)
[2022-08-28 07:01] LABS: INR 1.47; PROTHROMBIN TIME 18.1 SECONDS (12.5-14.5)
[2022-08-28 07:19] LABS: BLOOD UREA NITROGEN 24 MG/DL (9-23); CALCIUM LEVEL 8.2 MG/DL (8.3-10.6); CARBON DIOXIDE LEVEL 24 MMOL/L (20-31); CHLORIDE LEVEL 105 MMOL/L (98-107); CREATININE FOR GFR 0.75 MG/DL (0.55-1.30); GLOMERULAR FILTRATION RATE > 60.0 (>39); GLUCOSE, FASTING 122 MG/DL (74-106); POTASSIUM SERUM 4.1 MMOL/L (3.5-5.1); SODIUM LEVEL 138 MMOL/L (136-145)
[2022-08-28] MEDS: TIOTROPIUM INHALER/CAPSULE (SPIRIVA) INH SCH (07:19)
[2022-08-28] MEDS: FORMOTEROL FUMARATE 20 MCG/2 ML INHALATION SOLUTION (PERFOROMIST) INH SCH ×2 (07:19→19:55)
[2022-08-28] MEDS: INSULIN LISPRO (NovoLOG) PER UNIT SC SCH ×4 (07:30→21:00)
[2022-08-28] MEDS: ASPIRIN 81MG ENTERIC TABLET PO SCH (08:05)
[2022-08-28] MEDS: MAGNESIUM OXIDE 400MG TAB (MAG-OX) PO SCH ×3 (08:05→21:12)
[2022-08-28] MEDS: METHADONE 5MG TAB PO SCH ×2 (08:05→21:12)
[2022-08-28] MEDS: GABAPENTIN 300 MG CAP PO SCH ×2 (08:06→21:11)
[2022-08-28] MEDS: DOCUSATE SODIUM 100MG CAPSULE PO SCH ×2 (08:06→21:00)
[2022-08-28] MEDS: DICLOFENAC EPOLAMINE 1.3% PATCH TOP SCH ×2 (08:06→21:21)
[2022-08-28] MEDS: amLODIPine 5 MG TAB PO SCH (08:11)
[2022-08-28] MEDS: CARVedilol 12.5 MG TAB PO SCH ×2 (08:11→21:13)
[2022-08-28] MEDS ORDERED: LIDOCAINE 5% (LIDODERM) PATCH TD SCH (09:00)
[2022-08-28] MEDS ORDERED: LR 1,000 ML IV ONE ×2 (11:00→15:00)
[2022-08-28] MEDS ORDERED: MECLIZINE 12.5 MG TAB PO PRN (11:05)
[2022-08-28] MEDS: RIVAROXABAN 10MG TAB (XARELTO) PO SCH (17:40)
[2022-08-28] MEDS: ATORVASTATIN 20 MG TAB PO SCH (21:11)
[2022-08-28] MEDS: PANTOPRAZOLE 40MG TAB (PROTONIX) PO SCH (21:13)
[2022-08-28] MEDS: DULoxetine 30MG CAPSULE (CYMBALTA) PO SCH (21:14)
[2022-08-29] MEDS: ACETAMINOPHEN 500 MG TAB PO SCH ×3 (00:59→11:45)
[2022-08-29 06:00] VITALS: BP 134/83; TEMP 97.7; O2SAT 94
[2022-08-29 06:06] LABS: HEMATOCRIT 27.8 % (36.0-47.0); HEMOGLOBIN 8.8 g/dl (12.0-15.5); MEAN CORPUSCULAR HEMOGLOBIN 31.9 pg (27.0-33.0); MEAN CORPUSCULAR HGB CONC 31.7 g/dl (32.0-36.5); MEAN CORPUSCULAR VOLUME 100.7 fl (80.0-96.0); PLATELET COUNT, AUTOMATED 100 10^3/uL (150-450); RED BLOOD COUNT 2.76 10^6/uL (4.00-5.40); WHITE BLOOD COUNT 1.8 10^3/uL (4.0-10.0)
[2022-08-29 06:34] LABS: BLOOD UREA NITROGEN 21 MG/DL (9-23); CALCIUM LEVEL 8.8 MG/DL (8.3-10.6); CARBON DIOXIDE LEVEL 25 MMOL/L (20-31); CHLORIDE LEVEL 107 MMOL/L (98-107); CREATININE FOR GFR 0.77 MG/DL (0.55-1.30); GLOMERULAR FILTRATION RATE > 60.0 (>39); GLUCOSE, FASTING 98 MG/DL (74-106); MAGNESIUM LEVEL 1.8 MG/DL (1.8-2.4); POTASSIUM SERUM 4.2 MMOL/L (3.5-5.1); SODIUM LEVEL 138 MMOL/L (136-145)
[2022-08-29] MEDS: FORMOTEROL FUMARATE 20 MCG/2 ML INHALATION SOLUTION (PERFOROMIST) INH SCH (07:29)
[2022-08-29] MEDS: TIOTROPIUM INHALER/CAPSULE (SPIRIVA) INH SCH (07:29)
[2022-08-29] MEDS: INSULIN LISPRO (NovoLOG) PER UNIT SC SCH ×2 (07:30→11:45)
[2022-08-29 08:08] LABS: BASO % 0.5 % (0.0-1.0); EOS % 2.1 % (0.0-3.0); LYMPH # 0.5 10^3/uL (1.5-5.0); LYMPH % 27.6 % (24.0-44.0); MONO # 0.1 10^3/uL (0.0-0.8); MONO % 4.7 % (2.0-8.0); NEUTROPHILS # 1.3 10^3/uL (1.5-8.5); NEUTROPHILS % 65.1 % (36.0-66.0)
[2022-08-29 09:16] VITALS: BP 134/83
[2022-08-29] MEDS: amLODIPine 5 MG TAB PO SCH (09:16)
[2022-08-29] MEDS: ASPIRIN 81MG ENTERIC TABLET PO SCH (09:16)
[2022-08-29] MEDS: CARVedilol 12.5 MG TAB PO SCH (09:16)
[2022-08-29] MEDS: DICLOFENAC EPOLAMINE 1.3% PATCH TOP SCH (09:16)
[2022-08-29] MEDS: DOCUSATE SODIUM 100MG CAPSULE PO SCH (09:17)
[2022-08-29] MEDS: GABAPENTIN 300 MG CAP PO SCH (09:17)
[2022-08-29] MEDS: MAGNESIUM OXIDE 400MG TAB (MAG-OX) PO SCH (09:17)
[2022-08-29] MEDS: METHADONE 5MG TAB PO SCH (09:18)
[2022-08-29] MEDS ORDERED: MECL-136 PO (10:28)
[2022-08-29] MEDS ORDERED: LEVO1TAB39 PO (10:28)
[2022-08-29] MEDS ORDERED: AMLO1TAB24 PO (12:11)
== END 2022-08-29 12:43 | disposition home or self-care (01) | DRG 551 ==
LOC: M ED 12:17 → M ED INP 17:38 → M PCU 22:39 → M MSPAV 08-28 15:43
PROVIDERS: ADMIT Student in an Organized Health Care Education/Training Program; ATTEND Student in an Organized Health Care Education/Training Program
DX: M53.3 Sacrococcygeal disorders, not elsewhere classified (principal); D61.810 Antineoplastic chemotherapy induced pancytopenia; C78.00 Secondary malignant neoplasm of unspecified lung; C54.1 Malignant neoplasm of endometrium; J44.9 Chronic obstructive pulmonary disease, unspecified; I10 Essential (primary) hypertension; E11.9 Type 2 diabetes mellitus without complications; I25.10 Atherosclerotic heart disease of native coronary artery without angina pectoris; K21.9 Gastro-esophageal reflux disease without esophagitis; G62.0 Drug-induced polyneuropathy; R32 Unspecified urinary incontinence; Z66 Do not resuscitate; M48.061 Spinal stenosis, lumbar region without neurogenic claudication; Z90.79 Acquired absence of other genital organ(s); Z87.891 Personal history of nicotine dependence; Z79.82 Long term (current) use of aspirin; Z79.84 Long term (current) use of oral hypoglycemic drugs; Z79.899 Other long term (current) drug therapy; Z88.0 Allergy status to penicillin; Z20.822 Contact with and (suspected) exposure to COVID-19; Z86.73 Personal history of transient ischemic attack (TIA), and cerebral infarction without residual deficits; Z79.891 Long term (current) use of opiate analgesic; I25.2 Old myocardial infarction

== ENCOUNTER → 2022-09-04 | Outpatient (CLI) | payer MEDICARE ==
[~2022-09-04] VITALS: Ht 149.9 cm; Wt 83.3 kg
[~2022-09-04] MED LIST changes: +ALBU8.5H INH; +DICL3GEL2 TOP; +LEVO1TAB39 PO; +MECL-136 PO
[2022-09-04 09:41] VITALS: BP 142/63; O2SAT 97
== END ==
LOC: M PAL 07:50
PROVIDERS: ATTEND Nurse Practitioner Adult Health
DX: C54.1 Malignant neoplasm of endometrium (principal); C78.01 Secondary malignant neoplasm of right lung; E11.9 Type 2 diabetes mellitus without complications; G62.0 Drug-induced polyneuropathy; I25.10 Atherosclerotic heart disease of native coronary artery without angina pectoris; I25.2 Old myocardial infarction; Z95.5 Presence of coronary angioplasty implant and graft; J44.9 Chronic obstructive pulmonary disease, unspecified; F32.A Depression, unspecified; Z51.5 Encounter for palliative care; Z66 Do not resuscitate; Z92.21 Personal history of antineoplastic chemotherapy; Z79.84 Long term (current) use of oral hypoglycemic drugs; Z79.82 Long term (current) use of aspirin; Z79.51 Long term (current) use of inhaled steroids; Z88.0 Allergy status to penicillin; Z90.710 Acquired absence of both cervix and uterus; Z87.891 Personal history of nicotine dependence

== ENCOUNTER → 2022-09-10 | Outpatient (CLI) | payer MEDICARE ==
[~2022-09-10] MED LIST changes: +GASTROGRAFIN SOLUTION 30ML As Ordered ONE; +ISOVUE-370 76% 100ML VIAL As Ordered ONE; +MELO15TA28 PO
== END ==
LOC: M RAD 13:03
PROVIDERS: ATTEND Nurse Practitioner
DX: C54.1 Malignant neoplasm of endometrium (principal)
CPT/HCPCS: 71260; 74177; Q9963; Q9967

== ENCOUNTER → 2022-10-03 | Outpatient (REF) | payer MEDICARE ==
[~2022-10-03] MED LIST changes: -GASTROGRAFIN SOLUTION 30ML As Ordered ONE; -ISOVUE-370 76% 100ML VIAL As Ordered ONE
[2022-10-03 14:40] LABS: HEMOGLOBIN A1c 5.2 % (4.0-6.0)
[2022-10-03 14:49] LABS: CHOLESTEROL RISK RATIO 2.73 (<5); HDL CHOLESTEROL 40.6 MG/DL (>40); LDL CHOLESTEROL 42.6 MG/DL (<100); NON-HDL-C 70.4 MG/DL
== END ==
LOC: M LAB REF 13:45
PROVIDERS: ATTEND Internal Medicine
DX: E11.9 Type 2 diabetes mellitus without complications (principal); I25.10 Atherosclerotic heart disease of native coronary artery without angina pectoris

== ENCOUNTER → 2022-12-18 | Outpatient (CLI) | payer MEDICARE ==
[~2022-12-18] MED LIST changes: +GASTROGRAFIN SOLUTION 30ML As Ordered ONE; +ISOVUE-370 76% 100ML VIAL As Ordered ONE
== END ==
LOC: M RAD 12:42
PROVIDERS: ATTEND Specialist
DX: C54.1 Malignant neoplasm of endometrium (principal)
CPT/HCPCS: 71260; 74177; Q9963; Q9967

== ENCOUNTER → 2023-04-08 | Outpatient (CLI) | payer MEDICARE, MEDICAID ==
[~2023-04-08] MED LIST changes: +ISOVUE-300 61% 100ML VIAL As Ordered ONE
== END ==
LOC: M RAD 11:03
PROVIDERS: ATTEND Specialist
DX: C54.1 Malignant neoplasm of endometrium (principal); N28.1 Cyst of kidney, acquired; K57.30 Diverticulosis of large intestine without perforation or abscess without bleeding; I70.0 Atherosclerosis of aorta; I25.10 Atherosclerotic heart disease of native coronary artery without angina pectoris; Z95.828 Presence of other vascular implants and grafts
CPT/HCPCS: 71260; 74177; Q9963; Q9967

== ENCOUNTER → 2023-08-20 | Outpatient (CLI) | payer MEDICARE, MEDICAID ==
[~2023-08-20] MED LIST changes: -ISOVUE-300 61% 100ML VIAL As Ordered ONE; +ONDA-284 PO; -ONDA8TAB8 PO
== END ==
LOC: M RAD 08-19 11:34
PROVIDERS: ATTEND Nurse Practitioner
DX: C54.1 Malignant neoplasm of endometrium (principal)
CPT/HCPCS: 71260; 74177; Q9963; Q9967

== ENCOUNTER → 2023-09-17 | Outpatient (CLI) | payer MEDICARE, MEDICAID ==
[~2023-09-17] MED LIST changes: +CYCL-707; -GASTROGRAFIN SOLUTION 30ML As Ordered ONE; -ISOVUE-370 76% 100ML VIAL As Ordered ONE; +OMEG-28 PO; -OMEG1CAP85 PO
[2023-09-17 18:05] LABS: BASO # 0.1 10^3/uL (0.0-0.2); BASO % 0.6 % (0.0-1.0); EOS # 0.1 10^3/uL (0.0-0.5); EOS % 1.8 % (0.0-3.0); HEMATOCRIT 37.5 % (36.0-47.0); HEMOGLOBIN 11.5 g/dl (12.0-15.5); LYMPH # 1.4 10^3/uL (1.5-5.0); LYMPH % 17.6 % (24.0-44.0); MEAN CORPUSCULAR HEMOGLOBIN 28.6 pg (27.0-33.0); MEAN CORPUSCULAR HGB CONC 30.7 g/dl (32.0-36.5); MEAN CORPUSCULAR VOLUME 93.3 fl (80.0-96.0); MONO # 0.6 10^3/uL (0.0-0.8); MONO % 7.8 % (2.0-8.0); NEUTROPHILS # 5.5 10^3/uL (1.5-8.5); NEUTROPHILS % 71.6 % (36.0-66.0); PLATELET COUNT, AUTOMATED 283 10^3/uL (150-450); RED BLOOD COUNT 4.02 10^6/uL (4.00-5.40); WHITE BLOOD COUNT 7.7 10^3/uL (4.0-10.0)
[2023-09-17 18:45] LABS: HEMOGLOBIN A1c 6.5 % (4.0-6.0)
[2023-09-17 18:47] LABS: ALBUMIN 3.7 G/DL (3.2-5.2); ALKALINE PHOSPHATASE 101 U/L (46-116); ALT/SGPT 12 U/L (7.0-40); AST/SGOT < 8 U/L (<34); BILIRUBIN,TOTAL 0.4 MG/DL (0.3-1.2); BLOOD UREA NITROGEN 26 MG/DL (9-23); CALCIUM LEVEL 9.4 MG/DL (8.3-10.6); CARBON DIOXIDE LEVEL 27 MMOL/L (20-31); CHLORIDE LEVEL 106 MMOL/L (98-107); CHOLESTEROL LEVEL 148 MG/DL (<200); CHOLESTEROL RISK RATIO 2.46 (<5); CREATININE FOR GFR 0.97 MG/DL (0.55-1.30); GLOMERULAR FILTRATION RATE 59.1 (>39); GLUCOSE, FASTING 116 MG/DL (74-106); HDL CHOLESTEROL 60.1 MG/DL (>40); LDL CHOLESTEROL 64.9 MG/DL (<100); NON-HDL-C 87.9 MG/DL; POTASSIUM SERUM 5.1 MMOL/L (3.5-5.1); SODIUM LEVEL 139 MMOL/L (136-145); TOTAL PROTEIN 7.2 G/DL (5.7-8.2); TRIGLYCERIDES LEVEL 115 MG/DL (<150)
== END ==
LOC: M WUC 12:38
PROVIDERS: ATTEND Internal Medicine
DX: I25.10 Atherosclerotic heart disease of native coronary artery without angina pectoris (principal); E78.5 Hyperlipidemia, unspecified; E11.9 Type 2 diabetes mellitus without complications; M25.511 Pain in right shoulder

== ENCOUNTER → 2023-12-18 | Outpatient (CLI) | payer MEDICARE, MEDICAID ==
[~2023-12-18] MED LIST changes: +GABA-1490 PO; -GABA600T4 PO; +GASTROGRAFIN SOLUTION 30ML As Ordered ONE; +ISOVUE-370 76% 100ML VIAL As Ordered ONE
== END ==
LOC: M RAD 10:58
PROVIDERS: ATTEND Specialist
DX: C54.1 Malignant neoplasm of endometrium (principal); R91.8 Other nonspecific abnormal finding of lung field; K57.30 Diverticulosis of large intestine without perforation or abscess without bleeding; K56.41 Fecal impaction; N28.1 Cyst of kidney, acquired
CPT/HCPCS: 71260; 74177; J1642; Q9963; Q9967

== ENCOUNTER → 2024-02-17 | Outpatient (REF) | payer MEDICARE, MEDICAID ==
[~2024-02-17] MED LIST changes: -GASTROGRAFIN SOLUTION 30ML As Ordered ONE; -ISOVUE-370 76% 100ML VIAL As Ordered ONE
[2024-02-17 18:34] LABS: BASO # 0.1 10^3/uL (0.0-0.2); BASO % 0.7 % (0.0-1.0); EOS # 0.1 10^3/uL (0.0-0.5); EOS % 1.4 % (0.0-3.0); HEMOGLOBIN 11.4 g/dl (12.0-15.5); LYMPH # 1.3 10^3/uL (1.5-5.0); LYMPH % 17.5 % (24.0-44.0); MEAN CORPUSCULAR HEMOGLOBIN 28.4 pg (27.0-33.0); MEAN CORPUSCULAR HGB CONC 30.8 g/dl (32.0-36.5); MONO # 0.6 10^3/uL (0.0-0.8); MONO % 7.7 % (2.0-8.0); NEUTROPHILS # 5.3 10^3/uL (1.5-8.5); NEUTROPHILS % 72.1 % (36.0-66.0); PLATELET COUNT, AUTOMATED 274 10^3/uL (150-450); RED BLOOD COUNT 4.02 10^6/uL (4.00-5.40); WHITE BLOOD COUNT 7.3 10^3/uL (4.0-10.0)
[2024-02-17 19:04] LABS: ALBUMIN 3.5 G/DL (3.2-5.2); BILIRUBIN,TOTAL 0.3 MG/DL (0.3-1.2); CALCIUM LEVEL 9.7 MG/DL (8.3-10.6); CHOLESTEROL RISK RATIO 2.58 (<5); CREATININE FOR GFR 0.99 MG/DL (0.55-1.30); GLOMERULAR FILTRATION RATE 57.8 (>39); HDL CHOLESTEROL 53.3 MG/DL (>40); LDL CHOLESTEROL 59.3 MG/DL (<100); NON-HDL-C 84.7 MG/DL; POTASSIUM SERUM 5.2 MMOL/L (3.5-5.1); TOTAL PROTEIN 7.3 G/DL (5.7-8.2)
[2024-02-17 19:10] LABS: HEMOGLOBIN A1c 7.4 % (4.0-6.0)
== END ==
LOC: M LABDRWAD 17:18
PROVIDERS: ATTEND Internal Medicine
DX: J44.9 Chronic obstructive pulmonary disease, unspecified (principal); E78.5 Hyperlipidemia, unspecified; E11.9 Type 2 diabetes mellitus without complications

== ENCOUNTER → 2024-04-22 | Outpatient (CLI) | payer MEDICARE, MEDICAID ==
[~2024-04-22] MED LIST changes: +ISOVUE-370 76% 100ML VIAL As Ordered ONE
== END ==
LOC: M RAD 15:10
PROVIDERS: ATTEND Internal Medicine Hematology & Oncology
DX: C54.1 Malignant neoplasm of endometrium (principal); C78.01 Secondary malignant neoplasm of right lung; C78.02 Secondary malignant neoplasm of left lung; N28.1 Cyst of kidney, acquired; R16.0 Hepatomegaly, not elsewhere classified; K57.30 Diverticulosis of large intestine without perforation or abscess without bleeding
CPT/HCPCS: 71260; 74177; Q9967

== ENCOUNTER → 2024-05-08 | Outpatient (REF) | payer MEDICARE, MEDICAID ==
[~2024-05-08] MED LIST changes: -ISOVUE-370 76% 100ML VIAL As Ordered ONE
[2024-05-08 19:03] LABS: CHOLESTEROL RISK RATIO 2.63 (<5); HDL CHOLESTEROL 52.4 MG/DL (>40); NON-HDL-C 85.6 MG/DL
[2024-05-08 19:16] LABS: HEMOGLOBIN A1c 6.9 % (4.0-6.0)
== END ==
LOC: M LABDRWAD 17:10
PROVIDERS: ATTEND Internal Medicine
DX: E78.5 Hyperlipidemia, unspecified (principal); E11.9 Type 2 diabetes mellitus without complications

== ENCOUNTER → 2024-09-03 | Outpatient (CLI) | payer MEDICARE, MEDICAID ==
[~2024-09-03] MED LIST changes: +ACET-683 PO; +AMLO1TAB25 PO; +AMLO2.5T3 PO; +BACT800T5 PO; +BACTDSTA PO; -CYCL-707; +CYCL-707 PO; +ISOVUE-370 76% 100 ML VIAL As Ordered ONE; +LOPE2CAP PO; +MAGN400T33 PO; +PROC1CRE5 TOP; +TRIA1CR80 TOP; +TRIA1OI TOP; +ZOLP-532 PO
== END ==
LOC: M RAD 08:47
PROVIDERS: ATTEND Specialist
DX: C54.1 Malignant neoplasm of endometrium (principal); C78.01 Secondary malignant neoplasm of right lung; C78.02 Secondary malignant neoplasm of left lung; N28.1 Cyst of kidney, acquired
CPT/HCPCS: 71260; 74177; Q9967

== ENCOUNTER → 2024-09-23 | Outpatient (CLI) | payer MEDICARE, MEDICAID ==
[~2024-09-23] MED LIST changes: +GABA-1490; -ISOVUE-370 76% 100 ML VIAL As Ordered ONE; +SENN-186 PO
== END ==
LOC: M SOG 07:01
PROVIDERS: ATTEND Physician Assistant
DX: S42.211A Unspecified displaced fracture of surgical neck of right humerus, initial encounter for closed fracture (principal); M79.641 Pain in right hand; X58.XXXA Exposure to other specified factors, initial encounter; Y92.9 Unspecified place or not applicable; Y93.9 Activity, unspecified; Y99.9 Unspecified external cause status

== ENCOUNTER → 2024-11-04 | Outpatient (REF) | payer MEDICARE, MEDICAID ==
[~2024-11-04] MED LIST changes: +DICL3GEL13 TOP; -DICL3GEL2 TOP
[2024-11-04 11:21] LABS: ESTIMATED AVERAGE GLUCOSE 157.0 MG/DL (60-110)
[2024-11-04 12:30] LABS: CHOLESTEROL LEVEL 120.0 MG/DL (<200); CHOLESTEROL RISK RATIO 2.31 (<5); LDL CHOLESTEROL 45.3 MG/DL (<100); NON-HDL-C 68.1 MG/DL
[2024-11-05 07:11] LABS: TRIGLYCERIDES LEVEL 114.0 MG/DL (<150)
== END ==
LOC: M LAB REF 10:40
PROVIDERS: ATTEND Internal Medicine
DX: E11.9 Type 2 diabetes mellitus without complications (principal); E78.5 Hyperlipidemia, unspecified

== ENCOUNTER → 2024-12-21 | Outpatient (CLI) | payer MEDICARE, MEDICAID ==
[~2024-12-21] VITALS: Ht 149.9 cm; Wt 82.8 kg
[~2024-12-21] MED LIST changes: +OXYC-517 PO
[2024-12-21 11:03] VITALS: BP 160/74; O2SAT 94
== END ==
LOC: M PAL 10:41
PROVIDERS: ATTEND Physician Assistant
DX: Z51.5 Encounter for palliative care (principal); Z66 Do not resuscitate; C54.1 Malignant neoplasm of endometrium; C78.00 Secondary malignant neoplasm of unspecified lung; Z79.891 Long term (current) use of opiate analgesic; I10 Essential (primary) hypertension; J44.9 Chronic obstructive pulmonary disease, unspecified; I25.2 Old myocardial infarction; Z88.1 Allergy status to other antibiotic agents; Z88.0 Allergy status to penicillin; Z79.899 Other long term (current) drug therapy; Z79.82 Long term (current) use of aspirin; Z79.83 Long term (current) use of bisphosphonates; Z79.84 Long term (current) use of oral hypoglycemic drugs

== ENCOUNTER → 2025-01-08 | Outpatient (CLI) | payer MEDICARE, MEDICAID ==
[~2025-01-08] MED LIST changes: +ACET-839 PO; +CALC600T61 PO; +VITA100093 PO
== END ==
LOC: M PLARAD 09:36
DX: C54.1 Malignant neoplasm of endometrium (principal)

== ENCOUNTER 2025-01-20 06:02 | Day surgery (SDC) | payer MEDICARE, MEDICAID ==
[~2025-01-20] VITALS: Ht 149.9 cm; Wt 49.2 kg
[~2025-01-20 06:02] MED LIST changes: -BACTDSTA PO; +SULF-8 PO
[2025-01-20] MEDS ORDERED: LIDOCAINE 2% 100 MG/5 ML SDV (FOR ANES.) As Ordered ONE (07:35)
[2025-01-20] MEDS: LIDOCAINE VISCOUS 2% SOLN 15 ML UDC As Ordered ONE (08:17)
[2025-01-20] MEDS: CETACAINE SPRAY 5 GM As Ordered ONE (08:17)
[2025-01-20 09:05] VITALS: BP 139/64; TEMP 97.2; O2SAT 92
[2025-01-28] MEDS ORDERED: PRED10TA2 PO (12:41)
[2025-01-29] MEDS ORDERED: PRED10TA2 PO (13:28)
[2025-02-02] MEDS ORDERED: OXYC-517 PO (13:40)
== END 2025-01-20 09:10 | disposition home or self-care (01) ==
LOC: M SDC 06:02
PROVIDERS: ATTEND Internal Medicine Cardiovascular Disease
DX: I34.0 Nonrheumatic mitral (valve) insufficiency (principal); I70.0 Atherosclerosis of aorta

== ENCOUNTER → 2025-02-02 | Outpatient (CLI) | payer MEDICARE, MEDICAID ==
[~2025-02-02] VITALS: Ht 149.9 cm; Wt 79.8 kg
[~2025-02-02] MED LIST changes: +PRED10TA2 PO
[2025-02-02 13:35] VITALS: BP 154/80; O2SAT 95
== END ==
LOC: M PAL 13:17
PROVIDERS: ATTEND Physician Assistant
DX: Z51.5 Encounter for palliative care (principal); Z66 Do not resuscitate; C54.1 Malignant neoplasm of endometrium; C78.00 Secondary malignant neoplasm of unspecified lung; Z79.891 Long term (current) use of opiate analgesic; Z88.1 Allergy status to other antibiotic agents; Z88.0 Allergy status to penicillin; Z79.82 Long term (current) use of aspirin; Z79.02 Long term (current) use of antithrombotics/antiplatelets; Z79.83 Long term (current) use of bisphosphonates

== ENCOUNTER → 2025-02-10 | Outpatient (REF) | payer MEDICARE, MEDICAID ==
[2025-02-10 12:10] LABS: ALT/SGPT 13.0 U/L (7.0-40); AST/SGOT 11.0 U/L (<34); CALCIUM LEVEL 9.0 MG/DL (8.3-10.6); CARBON DIOXIDE LEVEL 28.0 MMOL/L (20-31); CHLORIDE LEVEL 105.0 MMOL/L (98-107); CHOLESTEROL LEVEL 163.0 MG/DL (<200); CHOLESTEROL RISK RATIO 2.03 (<5); CREATININE FOR GFR 1.1 MG/DL (0.55-1.30); GLOMERULAR FILTRATION RATE 51.1 (>39); LDL CHOLESTEROL 63.3 MG/DL (<100); NON-HDL-C 82.9 MG/DL; POTASSIUM SERUM 4.6 MMOL/L (3.5-5.1); SODIUM LEVEL 141.0 MMOL/L (136-145); TRIGLYCERIDES LEVEL 98.0 MG/DL (<150)
[2025-02-10 13:13] LABS: ESTIMATED AVERAGE GLUCOSE 131.0 MG/DL (60-110)
== END ==
LOC: M LAB REF 11:26
PROVIDERS: ATTEND Internal Medicine
DX: E78.5 Hyperlipidemia, unspecified (principal); E11.9 Type 2 diabetes mellitus without complications

== ENCOUNTER → 2025-02-16 | Outpatient (CLI) | payer MEDICARE, MEDICAID ==
[~2025-02-16] MED LIST changes: +ISOVUE-370 76% 100 ML VIAL ONE
== END ==
LOC: M PLAIMG 11:33
PROVIDERS: ATTEND Specialist
DX: C54.1 Malignant neoplasm of endometrium (principal); J90 Pleural effusion, not elsewhere classified
CPT/HCPCS: 71260; 74177; Q9967